=== PATIENT | female | born 1955 | race Caucasian/White ===

== ENCOUNTER → 2017-10-07 | Outpatient (CLI) | END | disposition home or self-care (01) ==

== ENCOUNTER 2017-11-03 06:22 | Inpatient (IN) | END 2017-11-05 15:08 | disposition home health service (06) | DRG 470 ==

== ENCOUNTER → 2017-11-21 | Outpatient (CLI) | END | disposition home or self-care (01) ==

== ENCOUNTER → 2017-12-19 | Outpatient (CLI) | END | disposition home or self-care (01) ==

== ENCOUNTER → 2018-01-16 | Outpatient (CLI) | END | disposition home or self-care (01) ==

== ENCOUNTER → 2018-01-23 | Outpatient (CLI) | END | disposition home or self-care (01) ==

== ENCOUNTER 2018-02-02 08:02 | Observation (INO) | END 2018-02-04 15:15 | disposition home health service (06) ==

== ENCOUNTER → 2018-02-13 | Outpatient (CLI) | END | disposition home or self-care (01) ==

== ENCOUNTER → 2018-02-17 | Outpatient (CLI) | END | disposition home or self-care (01) ==

== ENCOUNTER → 2018-02-20 | Outpatient (CLI) | END | disposition home or self-care (01) ==

== ENCOUNTER 2018-02-24 11:01 | Inpatient (IN) | END 2018-03-08 14:25 | disposition home health service (06) | DRG 464 ==

== ENCOUNTER → 2018-04-24 | Outpatient (CLI) | END | disposition home or self-care (01) ==

== ENCOUNTER → 2018-06-30 | Outpatient (CLI) | END | disposition home or self-care (01) ==

== ENCOUNTER → 2018-07-31 | Outpatient (CLI) | payer MEDICARE, OTHER ==
[~2018-07-31] MED LIST: ASPI325T32 PO; CALC0.255 PO; CALC0.5C10 PO; CITRACAL PO; DULO20CA43 PO; FIORICET PO; GABA-526 PO; GABA300C16 PO; HYDR2TAB3 PO; LEVE-5 PO; LEVO175T2 PO; LEVO750T25 PO; LYR75 PO; MAGN400T28 PO; METH500T8 PO; MORP15TA92 PO; OXYC-209 PO; ROPI1TAB41 PO; TEMA30CA6 PO; Vancomycin Iv Per Pharmacy XX
--- NOTE | 2018-07-31 12:45 | PN ---
Date/Time of Note Date/Time of Note DATE: 07/31/18 TIME: 12:41 Assessment/Plan VTE Prophylaxis Pharmacological prophylaxis: NA/contraindicated Pharm contraindication: low risk/ambulating Assessment/Plan Assessment/Plan 63-year-old female with right hip arthritis that has progressed to a point where it is interfering with her routine activities. Treatment options were discussed including medications injections and surgical treatment. The patient would like to proceed with right total hip replacement. Risks and benefits were discussed. Implant materials and surgical techniques were discussed. The patient will be scheduled for right total hip replacement in the near future Subjective 24 Hr Interval Summary Free Text/Dictation Monica is here for follow-up of right hip pain. The patient has a history of rheumatoid arthritis and has bilateral knee replacements. She has had hip pain in the past due to progressive arthritis of her hips. At this time, the right hip pain has progressed over the past few months to a point where it is interfering with routine activities. She is unable to rest and pain disturbed sleep at night. She is having difficulty sitting in one position and finding a comfortable spot. Pain is located in the right groin and radiates to the thigh. It is associated with limited range of motion of the right hip. She is using a walker for support. There is no history of fever or chills. She is here to discuss definitive treatment Exam/Review of Systems Vital Signs Vitals Vital signs are stable Exam Examination shows a pleasant female. She is awake alert and oriented. The patient is obviously uncomfortable and fidgety. The right hip has limited range of motion. Internal rotation is painful and 0 degrees. There is no obvious leg length inequality. There is no neurovascular deficit. Both knees have healed incisions of knee replacement. The left hip as terminally restricted range of motion as well. X-rays of the hips were done recently and show advanced osteoarthritis of the right hip with loss of joint space and osteophyte formation. LEENA NICHOLS Jul 31, 2018 12:45
== END | disposition home or self-care (01) ==
LOC: HKI 09:57
PROVIDERS: ATTEND Orthopaedic Surgery
DX: M16.11 Unilateral primary osteoarthritis, right hip (principal)
CPT/HCPCS: G0463

== ENCOUNTER 2018-08-24 09:26 | Inpatient (IN) | payer MEDICARE, OTHER ==
--- NOTE | 2018-08-23 17:31 | PREOPHP ---
DATE OF ADMISSION: 08/24/[address] Nichols: Thank you for asking me to see this 63-year-old woman preoperatively. She is scheduled to have total hip replacement tomorrow on the right side. The patient has had progressive difficulty to the point that she can barely walk. She needs help with putting on socks and shoes and has a significant amou nt of pain in her hip area. Complicating this is the fact that she does have rheumatoid arthritis an d multiple other pain issues for which she takes multiple medications. There is no history of cardia c disease, hypertension, diabetes. CURRENT MEDICATIONS: Include: 1. Percocet 5/325. 2. Requip 1 mg at bedtime. 3. Restoril on occasion at 30 mg. 4. Calcitriol 0.25 daily. 5. Vitamin D supplement. 6. Synthroid 75 mcg daily. 7. Cymbalta 30 mg. 8. She does have a prescription for Mobic but is not taking it preop. 9. MS Contin is 30 mg b.i.d. 10. Keppra 500 b.i.d. ALLERGIES: INCLUDE SHORTNESS OF BREATH WITH THE FOLLOWING DRUGS: 1. PENICILLIN. 2. CEPHALOSPORINS. 3. BACTRIM 4. REGLAN. 5. COMPAZINE. 6. TIGAN. HABITS: No cigarettes. No alcohol. MEDICAL PROBLEMS: As noted, osteoarthritis, rheumatoid arthritis. The patient has received Orencia in the past, is currently off for surgery. She has post-ablative hypothyroidism for Graves disease w ith associated post-ablative hypoparathyroidism with a history of hypocalcemia and seizure disorder f or which she takes Keppra. No seizures within the past long time. A remote history of bilateral romulo ast cancer in 1998. SURGERIES: Include section. She has had surgical procedures on her neck and lumbar spine. She has had an appendix; as noted, total thyroidectomy for Graves'. She has had a laparoscopy for s ome sort of abnormality of her duodenum which was benign but required some sort of stomach surgery. FAMILY HISTORY: The patient is . She has 1 son who works as a subcontractor. REVIEW OF SYSTEMS: CONSTITUTIONAL: There has been no weight loss, no headaches or dizziness. HEENT: She does wear glasses. There is no glaucoma. There is no hearing trouble. CARDIOPULMONARY: No shortness of breath or cough. No history of hypertension or cardiac disease or hyperlipidemia. GASTROINTESTINAL: Currently okay. MUSCULOSKELETAL: Asymptomatic joints other than the right hip. The patient has had multiple surgeri es. She has had infections post left knee replacement and also after lumbar surgery. PHYSICAL EXAMINATION: GENERAL: Reveals a pleasant, thin lady, alert and oriented. No acute distress. The patient is re quiring a walker for ambulation. She is uncomfortable even sitting in a chair. VITAL SIGNS: Blood pressure is 130/60. She has a regular pulse of 88. She is afebrile. She is 5 f eet and 1/2 inch tall, weighs 132 pounds. HEENT: Unremarkable. NECK: Supple. Posterior scar is noted. CHEST: Sounds clear to percussion and auscultation. HEART: Tones regular. No murmurs. ABDOMEN: Soft without palpable mass, organ or tenderness. EXTREMITIES: No clubbing, cyanosis or edema. She has rheumatoid changes of mild to moderate degree of the hands. She has fairly good range of motion of the left hip and knee. The right leg is basica lly very painful to move, and the hip was not ranged. BACK: There is a scar on her back as well. IMPRESSION: 1. Preoperative status, repair of right hip. 2. Rheumatoid arthritis. 3. History of postoperative infections. 4. Chronic pain syndrome. 5. Post-ablative hypothyroidism, on replacement. 6. Post-ablative hypoparathyroidism, also on replacement. DISCUSSION: The patient has been instructed to take her usual evening meds in the evening prior to s urgery. She can double up on her calcium supplement that evening. Postoperatively, we will continue all of her usual medications. Her electrocardiogram is normal. She has had a recent chest x-ray de scribed as normal. There is no evidence for any sort of cardiac disease. I think at this point the patient is cleared to have surgery from my standpoint. Obviously, because of the history of postoper ative infections, further careful watching of the patient will be required postoperatively. We will be glad to follow her along with you postoperatively. Dictated By: GABY JOHNSON MD SR/NTS Conf#: [id number] DID#: [id number] CC: LEENA NICHOLS MD;*EndCC*
[2018-08-24] VITALS (22 sets, daily range): BP systolic 93–110; BP diastolic 41–58; PULSE 87–96; RESP 11–20; Ht 152.4 cm; Wt 60.6 kg
[~2018-08-24] VITALS: Ht 152.4 cm; Wt 60.6 kg
[~2018-08-24 09:26] MED LIST changes: -ASPI325T32 PO; +BACITRACIN 50000 UNITS INJ IRR ONE; -CALC0.5C10 PO; -GABA-526 PO; -HYDR2TAB3 PO; -LYR75 PO; -ROPI1TAB41 PO; -TEMA30CA6 PO
[2018-08-24] MEDS ORDERED: LEVE-5 PO (10:09)
[2018-08-24] MEDS ORDERED: LEVO175T2 PO (10:09)
[2018-08-24] MEDS ORDERED: CALC0.5C10 PO (10:10)
[2018-08-24] MEDS ORDERED: GABA-526 PO (10:10)
[2018-08-24] MEDS ORDERED: MORP15TA92 PO (10:11)
[2018-08-24] MEDS ORDERED: ROPI1TAB41 PO (10:11)
[2018-08-24] MEDS ORDERED: DULO20CA43 PO (10:12)
[2018-08-24] MEDS ORDERED: TEMA30CA6 PO (10:12)
[2018-08-24] MEDS ORDERED: LYR75 PO (10:13)
[2018-08-24] MEDS ORDERED: MAGN400T28 PO (10:13)
--- NOTE | 2018-08-24 11:29 | NUR ---
DDAVP ORDERED PER MD, HOLDING ARE RN AWARE/ MEAGHAN.
[2018-08-24] MEDS ORDERED: DESMOPRESSIN 20 MCG in SOD CHLORIDE 0.9% 50 ML IVPB ONE (11:30)
[2018-08-24] MEDS ORDERED: POLYMYXIN B 500000 UNIT INJ ONE (13:07)
--- NOTE | 2018-08-24 13:07 | PREAC ---
Date/Time of Note Date/Time of Note DATE: 08/24/18 TIME: 13:03 Anesthesia Eval and Record Evaluation Time Pre-Procedure Interview DATE: 08/24/18 TIME: 13:03 Age 63 Sex female NPO: 8 hrs Preoperative diagnosis right hip joint disease Planned procedure right total hip replacement Past Medical History Past Medical History: Includes Endo: Hypothyroid Musculoskeletal: Rheumatoid arthritis GI: Other (hx of GI cancer ) Heme: Coagulation disorder Psych: Depression, Anxiety Surgery & Anesthesia Issues Other issues (awake under anesthesia during one operation (stomach) ) Meds Anticoagulation: No Beta Rosy within 24 hr: No Reason Beta Roys not given: Pt. not on B-Rosy Reported Medications Pregabalin* (Lyrica*) 75 Mg Capsule, 75 MG PO DAILY, CAP 08/24/18 Magnesium Oxide* (Magnesium Oxide*) 400 Mg Tablet, 400 MG PO DAILY, TAB 08/24/18 Duloxetine Hcl* (Cymbalta*) 20 Mg Capsule.dr, 40 MG PO DAILY, CAP 08/24/18 Temazepam* (Restoril*) 30 Mg Capsule, 30 MG PO HS PRN for INSOMNIA, CAP 08/24/18 Morphine Sulfate* (Ms Contin*) 15 Mg Tablet.sa, 30 MG PO Q8 PRN for PAIN, TAB.SA 08/24/18 Ropinirole Hcl* (Requip*) 1 Mg Tablet, 1 MG PO HS, TAB 08/24/18 Gabapentin* (Gabapentin*) 600 Mg Tablet, 600 MG PO TID, #90 TAB 08/24/18 Calcitriol* (Calcitriol*) 0.5 Mcg Capsule, 0.5 MCG PO DAILY, CAP 08/24/18 Levetiracetam* (Keppra*) 500 Mg Tablet, 500 MG PO BID, TAB 08/24/18 Levothyroxine Sodium* (Synthroid*) 175 Mcg Tablet, 175 MCG PO BEFORE BREAKFAST, #30 TAB 08/24/18 Discontinued Reported Medications Duloxetine Hcl* (Cymbalta*) 20 Mg Capsule.dr, 40 MG PO QAM, CAP 02/02/18 Oxycodone HCl/Acetaminophen (Percocet 10-325 mg Tablet) 1 Each Tablet, 1 EACH PO Q4H, TAB 02/02/18 Magnesium Oxide* (Magnesium Oxide*) 400 Mg Tablet, 400 MG PO BID, TAB 02/02/18 Morphine Sulfate* (Ms Contin*) 15 Mg Tablet.sa, 15 MG PO TID, TAB 11/03/17 Acetamin/Butalbital/Caffeine* (Fioricet*) [id number] Tab, 1 TAB PO Q6 PRN for PAIN LEVEL 1-5, TAB 11/02/17 Calcitriol* (Rocaltrol*) 0.25 Mcg Capsule, 0.25 MCG PO DAILY, CAP 11/02/17 Levetiracetam* (Keppra*) 500 Mg Tablet, 500 MG PO BID, TAB 11/02/17 Levothyroxine Sodium* (Synthroid*) 175 Mcg Tablet, 175 MCG PO BEFORE BREAKFAST, #30 TAB 11/02/17 Discontinued Scripts Methocarbamol* (Methocarbamol*) 500 Mg Tablet, 500 MG PO TID, #30 TAB Prov:ALTON WONG 03/07/18 [Vancomycin Iv Per Pharmacy] 1 EA EACH No Conflict Check, 0 EA XX .PER PROTOCOL for 35 Days, #70 IV.ACC Prov:ALTON WONG 03/07/18 Levofloxacin* (Levaquin*) 750 Mg Tablet, 750 MG PO DAILY@06, #38 TAB Prov:ALTON WONG 03/07/18 Gabapentin* (Gabapentin*) 300 Mg Capsule, 900 MG PO TID, #90 CAP Prov:ALTON WONG 03/07/18 Calcium Citrate* (Citracal*) 950 Mg Tab, 630 MG PO AC MEALS for 30 Days, #90 TAB To prevent hypocalcemia Prov:JONATHAN WALTON MD 11/05/17 Current Medications Lactated Ringer's 1,000 ml @ 125 mls/hr Q8H IV* ; Start 08/24/18 at 13:30; Stop 08/24/18 at 21:29 Tranexamic Acid 1000 mg/Sodium Chloride 110 ml @ 200 mls/hr PRE-OP ONCE IVPB ; Start 08/24/18 at 13:30; Stop 08/24/18 at 14:02 Tranexamic Acid 1000 mg/Sodium Chloride 110 ml @ 220 mls/hr AT CLOSING ONCE IVPB ; Start 08/24/18 at 13:30; Stop 08/24/18 at 13:59 Dexamethasone (Decadron) 4 mg PRE-OP ONCE IV Last administered on 08/24/18at 10:44; Admin Dose 4 MG; Start 08/24/18 at 13:30; Stop 08/24/18 at 13:31 Ropivacaine/ Clonidine/ Epinephrine/ Ketorolac Tromethamine/ Sodium Chloride INTRA-OP INJ ; Start 08/24/18 at 15:00; Stop 08/24/18 at 19:00 Clindamycin HCl/ Dextrose 50 ml @ 50 mls/hr PRE-OP ONCE IVPB ; Start 08/24/18 at 13:30; Stop 08/24/18 at 14:29 Acetaminophen 100 ml @ 400 mls/hr PRE-OP ONCE IVPB Last administered on 08/24/18at 10:45; Admin Dose 400 MLS/HR; Start 08/24/18 at 13:30; Stop 08/24/18 at 13:44 Meds reviewed: Yes Allergies Coded Allergies: Penicillins (Verified Allergy, Unknown, 08/24/18) Sulfa (Sulfonamide Antibiotics) (Verified Allergy, Unknown, 08/24/18) cefaclor (Verified Allergy, Unknown, 08/24/18) cephalexin (Verified Allergy, Unknown, 08/24/18) metoclopramide (Verified Allergy, Unknown, 08/24/18) prochlorperazine (Verified Allergy, Unknown, 08/24/18) trimethobenzamide (Verified Allergy, Unknown, 08/24/18) Allergies Reviewed: Yes Labs/Studies Labs Reviewed: Reviewed by anesthesiologist test: N/A Pre-procedure Exam Last vitals Vital Signs Date Temp Pulse Resp B/P (MAP) Pulse Ox O2 O2 Flow FiO2 Time Delivery Rate 08/24/18 98.5 87 18 98/54 (69) 95 Room Air 10:47 Airway: Adequate mouth opening, Adequate thyromental dist Mallampati: Mallampati II Teeth: Normal Lung: Normal Heart: Normal ASA Physical Status ASA physical status: 3 Emergency: None Pre-operative Attestations Prior to commencing anesthesia and surgery, the patient was re-evaluated, there was verification of: *The patient's identity *The results of appropriate recent lab work and preoperative vital signs *The above evaluation not changing prior to induction *Anesthetic plan, risk benefits, alternative and complications discussed with patient/family; questions answered; patient/family understands, accepts and wishes to proceed. SANTIAGO LANDA DO Aug 24, 2018 13:07
[2018-08-24] MEDS ORDERED: FENTAnyl 50 MCG/ML VIAL ONE (13:13)
[2018-08-24] MEDS ORDERED: ETOMIDATE 20 MG INJ ONE (13:13)
[2018-08-24] MEDS ORDERED: CLINDAMYCIN 600 MG/D5W (PMX) 50 ML IVPB ONE ×2 (13:13→13:30)
[2018-08-24] MEDS ORDERED: LIDOCAINE 2% (SDV) 5 ML INJ ONE (13:13)
[2018-08-24] MEDS ORDERED: MIDAZOLAM 1 MG/ML 2 ML INJ ONE ×2 (13:13→14:29)
[2018-08-24] MEDS ORDERED: DEXAMETHASONE 4 MG/ML 1 ML INJ IV ONE (13:30)
[2018-08-24] MEDS ORDERED: ONDANSETRON 4 MG INJ IV PRN (13:30)
[2018-08-24] MEDS ORDERED: HYDROmorphONE 1 MG/5 ML IV SYRINGE IV PRN (13:30)
[2018-08-24] MEDS ORDERED: LACTATED RINGER'S 1,000 ML IV* SCH (13:30)
[2018-08-24] MEDS ORDERED: ACETAMINOPHEN 1000MG/100ML IV 100 ML IVPB ONE (13:30)
[2018-08-24] MEDS ORDERED: DEXAMETHASONE 4 MG/ML 5 ML INJ ONE (14:39)
[2018-08-24] MEDS ORDERED: ONDANSETRON 4 MG INJ ONE (14:39)
--- NOTE | 2018-08-24 14:47 | HPN ---
Date/Time of Note Date/Time of Note DATE: 08/24/18 TIME: 14:46 Interval H&P Admission Note Pt. seen H&P reviewed: No system changes LEENA NICHOLS Aug 24, 2018 14:47
[2018-08-24] MEDS: TRANEXAMIC ACID 1,000 MG in SOD CHLORIDE 0.9% 100 ML IVPB ONE ×6 (15:20→15:45)
[2018-08-24] MEDS: LACTATED RINGER'S 1,000 ML IV SCH (16:05)
--- NOTE | 2018-08-24 16:05 | SIPON ---
Date/Time of Note Date/Time of Note DATE: 08/24/18 TIME: 16:04 Operative Report Preoperative Diagnosis right hip DJD Postoperative Diagnosis same Operation/Procedure Performed Right GERA Surgeon see signature line porcelain buildup assistant Johnny DUBOIS Anesthesia: spinal Estimated blood loss: 150 - 200 ml's Transfusion Required none Specimen bone Grafts/Implants size 1 actis stem, 48 cup, 32 ceramic head Complications none LEENA NICHOLS Aug 24, 2018 16:05
[2018-08-24] MEDS ORDERED: ROPIVACAINE 0.2% 20 ML VIAL ONE (16:07)
[2018-08-24] MEDS ORDERED: LIDOCAINE 1% (MDV) 20 ML INJ ONE (16:09)
--- NOTE | 2018-08-24 16:22 | NUR ---
PT NOTE , RECEIVED MD ORDER AT 16:09 FORT PT EVALUATION , HOWEVER PATIENT STILL IS IN OR , PLAN TO FOLLOW UP IN AM .
[2018-08-24] MEDS ORDERED: oxyCODONE 5 MG TAB PO PRN ×2 (16:30)
[2018-08-24] MEDS ORDERED: NACL 0.9% 3 ML SYG IV SCH (16:30)
[2018-08-24] MEDS ORDERED: MAGNESIUM HYDROXIDE 30ML CUP PO PRN (16:30)
[2018-08-24] MEDS ORDERED: NALOXONE (0.4 MG/ML) INJ IV PRN (16:30)
--- NOTE | 2018-08-24 16:44 | PAC ---
Date/Time of Note Date/Time of Note DATE: 08/24/18 TIME: 16:44 Post-Anesthesia Notes Post-Anesthesia Note Last documented vital signs Vital Signs Date Temp Pulse Resp B/P (MAP) Pulse Ox O2 O2 Flow FiO2 Time Delivery Rate 08/24/18 98 102 18 105/60 95 Room Air 1644 Activity: WNL Respiratory function: WNL Cardiovascular function: WNL Mental status: Baseline Pain reasonably controlled: Yes Hydration appropriate: Yes Nausea/Vomiting absent: Yes SANTIAGO LANDA DO Aug 24, 2018 16:44
[2018-08-24] MEDS: HYDROmorphONE 1 MG/5 ML IV SYRINGE IV PRN ×2 (17:00→17:15)
[2018-08-24] MEDS: KETOROLAC 15 MG INJ IV PRN ×2 (17:19→23:20)
--- NOTE | 2018-08-24 17:19 | CONS ---
Assessment/Plan Assessment/Plan Problems: (1) History of total right hip arthroplasty Onset Date: ~ 08/24/2018 Status: Acute Comment: Stable postop and without issue. Transfer form anesthesia care unit to orthopedic [facility] is appropriate (2) Rheumatoid arthritis Status: Chronic Comment: Noted and stable at this time Qualifiers: Rheumatoid arthritis location: unspecified site Rheumatoid factor presence: with rheumatoid factor Qualified Codes: M05.9 - Rheumatoid arthritis with rheumatoid factor, unspecified (3) Postprocedural hypoparathyroidism Status: Chronic Comment: Maintain calcitriol and calcium supplementations and follow serum calcium. (4) Postprocedural hypothyroidism Status: Chronic Comment: Maintain levothyroxine replacement therapy (5) Chronic pain syndrome Status: Chronic Comment: Noted. Continue with gabapentin and pain medications. Transition back to acting narcotics shortly after we get her through the acute phase. (6) Seizure disorder Status: Chronic Comment: Maintain Keppra (7) Anemia Status: Chronic Comment: Recheck labs in the morning Qualifiers: Anemia type: unspecified type Qualified Codes: D64.9 - Anemia, unspecified (8) Gastroesophageal reflux disease Status: Chronic Comment: Maintain proton pump inhibitor therapy Qualifiers: Esophagitis presence: without esophagitis Qualified Codes: K21.9 - Gastro- esophageal reflux disease without esophagitis Consultation Date/Type/Reason Admit Date/Time Aug 24, 2018 at 09:26 Initial Consult Date August 24, 2018 Type of Consult Internal medicine Reason for Consultation Postoperative assistance after right total hip arthroplasty Requesting Provider: LEENA NICHOLS Date/Time of Note DATE: 08/24/18 TIME: 17:16 24 HR Interval Summary Free Text/Dictation Ene 63-year-old female with a somewhat extensive medical history admitted electively for hip arthroplasty. She is seen postop in the postanesthesia care unit Constitutional: no complaints Detailed Summary ENT: no complaints Respiratory: no complaints Cardiovascular: no complaints Gastrointestinal: no complaints Musculoskeletal: other (Pain at hip) Exam/Review of Systems Exam Vitals Vital Signs Date Temp Pulse Resp B/P (MAP) Pulse Ox O2 O2 Flow FiO2 Time Delivery Rate 08/24/18 98.5 87 18 98/54 (69) 95 Room Air 10:47 Intake and Output 08/23/18 08/23/18 08/24/18 1515:00 23:00 07:00 IntakeIntake Total 0 ml BalanceBalance 0 ml Constitutional: alert, oriented Eyes: nl conjunctiva, EOMI, nl lids, nl sclera, PERRL Respiratory: clear to auscultation, normal air movement Cardiovascular: regular rate and rhythm, nl pulses Gastrointestinal: soft, nl liver, spleen, non-tender Extremities: normal pulses Medications Medication Current Medications Lactated Ringer's 1,000 ml @ 125 mls/hr Q8H IV* ; Start 08/24/18 at 13:30; Stop 08/24/18 at 21:29 Ropivacaine/ Clonidine/ Epinephrine/ Ketorolac Tromethamine/ Sodium Chloride INTRA-OP INJ ; Start 08/24/18 at 15:00; Stop 08/24/18 at 19:00 Hydromorphone HCl (Dilaudid) 0.2 mg PACU PRN IV MILD PAIN 1-3; Start 08/24/18 at 13:30; Stop 08/24/18 at 18:00 Hydromorphone HCl (Dilaudid) 0.4 mg PACU PRN IV MOD PAIN 4-6 Last administered on 08/24/18at 17:00; Admin Dose 0.4 MG; Start 08/24/18 at 13:30; Stop 08/24/18 at 18:00 Ondansetron HCl (Zofran Inj) 4 mg PACU ORDER PRN IV NAUSEA/VOMITING; Start 08/24/18 at 13:30; Stop 08/24/18 at 18:00 Lactated Ringer's 1,000 ml @ 80 mls/hr [id number] IV ; Start 08/24/18 at 16:05 Oxycodone HCl (Roxicodone) 10 mg Q4H PRN PO .PAIN; Start 08/24/18 at 16:30 Oxycodone HCl (Roxicodone) 5 mg Q4H PRN PO .PAIN; Start 08/24/18 at 16:30 Ondansetron HCl (Zofran Inj) 4 mg Q4H PRN IV NAUSEA/VOMITING; Start 08/25/18 at 16:30 Clindamycin HCl/ Dextrose 50 ml @ 50 mls/hr Q8H IVPB ; Start 08/24/18 at 18:00; Stop 08/25/18 at 10:59 Celecoxib (Celebrex) 100 mg BID PO ; Start 08/25/18 at 09:00 Gabapentin (Neurontin) 300 mg QHS PO ; Start 08/24/18 at 21:00 Pantoprazole (Protonix Tab) 40 mg DAILY@06 PO ; Start 08/25/18 at 06:00 Docusate Sodium (Colace) 200 mg BID PO ; Start 08/25/18 at 09:00; Stop 08/27/18 at 21:01 Magnesium Hydroxide (Milk Of Mag) 30 ml HS PRN PO .CONSTIPATION; Start 08/24/18 at 16:30 Ketorolac Tromethamine (Toradol) 15 mg Q6H PRN IV .PAIN; Start 08/24/18 at 16:30 Naloxone HCl (Narcan) 0.2 mg Q2M PRN IV .RESP RATE; Start 08/24/18 at 16:30 IV Flush (NS 3 ml) 3 ml per protocol IV ; Start 08/24/18 at 16:30 Aspirin (Ecotrin) 325 mg BID PO ; Start 08/25/18 at 09:00 JONATHAN WALTON MD Aug 24, 2018 17:19
[2018-08-24] MEDS: CALCITRIOL 0.25 MCG CAP PO SCH (17:30)
--- NOTE | 2018-08-24 17:30 | NUR ---
PACU NOTE: PT RECEIVED S/P RIGHT THR. PT IS ALERT AND ORIENTED, MEDICATED FOR PAIN PER CURRENT ORDERS AND VERBALIZED RELIEVE. VITAL SIGNS ARE STABLE. PT WILL BE TRANSFERRED TO MED/SURG UNIT FOR CONTINUATION OF CARE
[2018-08-24] MEDS: CLINDAMYCIN 900 MG/D5W (PMX) 50 ML IVPB SCH (17:49)
--- NOTE | 2018-08-24 17:50 | OPR ---
Date/Time of Note Date/Time of Note DATE: 08/24/18 TIME: 17:47 Operative Report Procedure Date: Aug 24, 2018 Preoperative Diagnosis Right hip osteoarthritis Postoperative Diagnosis Same Operation/Procedure Performed Right total hip replacement Surgeon see signature line Gluing Machine Adjuster KARI Diez Anesthesia Type: spinal Estimated Blood Loss: 250 - 300 ml's Transfusion none Specimen Bone Grafts/Implants Dexter hip, size 1 Actis stem, 48 mm cup, 32 mm head Tubes/Drains None Complications none Pt Condition Post Procedure: stable Disposition: PACU Indications Patient is a 63-year-old female with advanced arthritis of her right hip Procedure Description The patient was placed supine on the operating room table. The right hip was prepped and draped in usual manner. An anterior incision was made. The plane between the sartorius and tensor fascia ryan was developed in a blunt fashion. Branches of the circumflex vessels were identified and cauterized with aqua mantis. The hip capsule was opened. A large effusion and arthritis was encountered. The neck cut was made 1 cm proximal to the lesser trochanter. The acetabular preparation was done with [place] reamers up to a size 47. A 48 trial cup was well fitting. The 48 cup was placed in 20 degrees of anteversion and 40 degrees of abduction. One screw was used to enhance fixation. Liner was placed to accommodate a 32 mm femoral head. The femur was then prepared for a size 1 component. The lower extremity was placed in extension and external rotation. The size 1 trial stem with a standard offset neck resulted in a stable hip with equal leg length. X-rays confirm proper alignment of the implants. Once satisfactory alignment was confirmed, the trials were removed and final components placed including a size 1 stem, 32 mm ceramic head. The hip was injected with pain cocktail. Stasis was confirmed and the wound closed in layers using #1 strata fix for deep fascia, 2-0 Vicryl for subcutaneous tissue and 3-0 Monocryl for the skin. Patient was transferred to the recovery room in stable condition LEENA NICHOLS Aug 24, 2018 17:50
--- NOTE | 2018-08-24 18:15 | NUR ---
RECEIVED PATIENT REPORT FROM KAEL SAHNI IN PACU. RECEIVED THE PATIENT TO UNIT AT 18 10 S/P RIGHT TOTAL HIP REPLACEMENT UNDER DR. MARIALUISA STERN. PATIENT VITALS STABLE. ON ADVANCE TO REGULAR DIET STATUS, PATIENT GIVEN CLEAR FLUIDS . TOLERATING WELL. PATIENT IV SITE INTACT AND PATENT. RIGHT HIP SIDE WITH SILVER SULPHA DIAZINE DRESSING. NO BLEEDING OR DRAINAGE NOTED. PATIENT HAS LICONA DRAINING WELL WITH CLEAR URINE. SCD'S ON. ICE PACK APPLIED TO THE SURGICAL SITE. INTRODUCED TO THE UNIT STAFF AND ROOM, INTRODUCED CALL LIGHT SYSTEM. ALL SAFETY PRECAUTIONS EXPLAINED AND MAINTAINED SUCH BED IN THE LOWEST POSITION, ALARMS ON, BRAKES ON, CALL LIGHT SYSTEM WITHIN REACH. WILL CONTINUE TO MONITOR. ENCOURAGED TO USE THE CALL LIGHT.
[2018-08-24] MEDS: LEVETIRACETAM 500 MG TAB PO SCH (20:39)
[2018-08-24] MEDS: GABAPENTIN 300 MG CAP PO SCH ×2 (20:39)
[2018-08-24] MEDS: ROPINIROLE 1 MG TAB PO SCH (20:40)
[2018-08-24] MEDS: CALCIUM CARBONATE 1.25 GM TAB PO SCH (20:40)
[2018-08-24] MEDS: HYDROmorphONE 1 MG/ML SYG IV PRN (21:24)
[2018-08-25 00:15] VITALS: BP 105/57; PULSE 94; RESP 18
[2018-08-25] MEDS: HYDROmorphONE 1 MG/ML SYG IV PRN ×6 (00:35→16:31)
[2018-08-25] MEDS: CLINDAMYCIN 900 MG/D5W (PMX) 50 ML IVPB SCH ×2 (01:56→10:50)
--- NOTE | 2018-08-25 04:19 | NUR ---
END OF SHIFT NOTE: PATIENT IS A AND O X 4; NOT IN DISTRESS. VS IS WNL; ALL MEDICATIONS HAVE BEEN GIVEN ORDERED AND PRN; ALL NEEDS ATTENDED; CALL LIGHT WITHIN REACH ; PT'S SPOUSE AT THE BED SIDE; WILL ENDORSE TO THE DAY SHIFT RN
[2018-08-25 04:25] VITALS: BP 109/58; PULSE 81; RESP 18
[2018-08-25] MEDS: KETOROLAC 15 MG INJ IV PRN ×4 (05:02→22:30)
[2018-08-25] MEDS: LACTATED RINGER'S 1,000 ML IV SCH (05:07)
[2018-08-25] MEDS ORDERED: ONDANSETRON 4 MG INJ IV PRN ×2 (05:45→16:30)
[2018-08-25] MEDS: PANTOPRAZOLE (EC) 40 MG TAB PO SCH (06:22)
[2018-08-25] MEDS: LEVOTHYROXINE 175 MCG TAB PO SCH (06:22)
--- NOTE | 2018-08-25 06:49 | NUR ---
PT. REQUESTED NOT TO DISCONTINUE LICONA CATH. UNTIL SHE WILL WORK WITH A PT. DR. NICHOLS WAS PAGED. AND WILL ENDORSE TO THE DAY SHIFT RN.
--- NOTE | 2018-08-25 07:45 | NUR ---
OT EVAL: Therapy day number 1 Evaluation Start Time 07:45 Evaluation End Time 08:40 Evaluation Total Time 55 min Pain Intensity 6 (0-10) Patient Stated Goal for Pain Relief 10 (0-10) Pain Scale NUMERIC Pain Level Comment right hip Feeding Mechanics Independent Bed Mobility Supine to Sit Moderate Assist Transfer Sit to Stand Ability Minimum Assist Bed Mobility Sit to Supine Minimum Assist Toileting Ability Minimum Assist Assistive Devices Front Wheel Walker Hygiene Ability Independent Toileting Ability Maximum Assist Toilet Transfer Ability Minimum Assist Post Treatment Pain Intensity 6 (0-10) OT Technical Record Comment OT EVAL: Pt is a 63 y.o. female s/p right hip replacement. Pt has PHMX of osteoarthritis, rheumatoid arthritis, post-ablative hypothyroidism for Graves disease with associated post-ablative hypoparathyroidism with a history of hypocalcemia and seizure disorder and history of bilateral breast cancer in 1998. PLOF: Pt lives with her in a single story apartment and was independent with ADL's and using a SPC for ambulation up until 2 week ago. For the past two weeks pt required assistance with LB dressing, transfers, and showering due to pain. Pt has also begun using a FWW for ambulation. Pt owns SPC, FWW and 3/1 commode. CLOF: RN cleared pt for skilled OT tx. Pt received supine in bed and agreeable to tx. OTR educated pt on purpose of OT and instructed pt on anterior hip precautions as well as AE for LB dressing. Pt required Mod A to perform supine->sit at EOB due to inability to move right leg independently. Seated at EOB pt demonstrated good sitting balance. Pt performed 3/1 commode transfer using FWW with vc for safety and proper positioning. Pt required total A for toilet hygiene due to extreme pain. Pt returned to bed with all needs met. RN notified. Pt demonstrates good understanding of precautions and use of FWW. Pt will benefit from skilled OT tx to increase safety awareness, balance, endurance and independence with self care. Recommend d/c home once medically cleared by .
[2018-08-25 08:08] VITALS: BP 126/61; PULSE 68; RESP 18
[2018-08-25] MEDS: DOCUSATE SODIUM 100 MG CAP PO SCH ×2 (09:00→21:00)
--- NOTE | 2018-08-25 09:05 | PN ---
Date/Time of Note Date/Time of Note DATE: 08/25/18 TIME: 09:04 Assessment/Plan Lines/Catheters IV Catheter Type (from Nrsg): Peripheral IV Telles in Place (from Nrsg): Yes Assessment/Plan Assessment/Plan Slow progress after hip replacement. Pain medication will be increased, pain consult is written. The patient may need 1-2 days before she is ready for discharge Subjective 24 Hr Interval Summary Complaint of significant pain, postop day 1 after hip replacement Exam/Review of Systems Vital Signs Vitals Vital Signs Date Temp Pulse Resp B/P (MAP) Pulse Ox O2 O2 Flow FiO2 Time Delivery Rate 08/25/18 98.0 68 18 126/61 90 Room Air 08:08 (82) 08/25/18 2.0 04:25 Intake and Output 08/24/18 08/24/18 08/25/18 1515:00 23:00 07:00 IntakeIntake Total 1820 ml 1050 ml OutputOutput Total 500 ml 2750 ml BalanceBalance 1320 ml -1700 ml Exam Free Text/Dictation Hip dressing is intact. Range of motion is limited. No neurovascular deficit is noted Results Result Diagram: 08/25/187 08/25/18 0427 LEENA NICHOLS Aug 25, 2018 09:05
[2018-08-25] MEDS: CELECOXIB 100 MG CAP PO SCH ×2 (09:10→20:18)
[2018-08-25] MEDS: GABAPENTIN 300 MG CAP PO SCH ×4 (09:10→20:17)
[2018-08-25] MEDS: DULOXETINE 20 MG CAP DR PO SCH (09:10)
[2018-08-25] MEDS: ASPIRIN (EC) 325 MG TAB PO SCH ×2 (09:11→20:18)
[2018-08-25] MEDS: MAGNESIUM OXIDE 400 MG TAB PO SCH (09:11)
[2018-08-25] MEDS: CALCITRIOL 0.25 MCG CAP PO SCH (09:12)
[2018-08-25] MEDS: CALCIUM CARBONATE 1.25 GM TAB PO SCH ×3 (09:12→22:36)
[2018-08-25] MEDS: LEVETIRACETAM 500 MG TAB PO SCH ×2 (09:12→20:17)
[2018-08-25] MEDS ORDERED: HYDROmorphONE 1 MG/ML SYG IV PRN (09:30)
--- NOTE | 2018-08-25 10:49 | NUR ---
PT VALUATION , Therapy day number 1 Evaluation Start Time 10:00 Evaluation Total Time 0 min Subjective Current complaint of pain Pain Scale NUMERIC Pain Intensity 5 (0-10) Patient Stated Goal for Pain Relief 0 (0-10) Pain Level Comment RT HIP Pre Treatment Vital Signs Stable Yes - BP:126/61 68 Exercise Assessment Label Bilat Lower Extremity Exercise Type Active ROM Additional Exercise Comments PRT GERA PROTOCOL Supine to Sit Minimum Assist Transfer Sit to Stand Ability Minimum Assist Bed Mobility Sit to Supine Minimum Assist Sitting Tolerance 15 min Patient uses wheelchair Not Applicable Gait Assist Levels Minimum Assist Assistive Devices Front Wheel Walker Ambulation Distance 10 feet Additional Gait Comments SLOE CADENE , FATIGUES EASILY , NEEDS VC'S FOR EQUENCING . Weight Bearing Assessment Label Right Lower Extremity Weight Bearing Status Weight Bearing as [place] Additional Stairs Assist Comments TBA Static Sitting Balance Good Dynamic Sitting Balance Good Standing Static Balance Good Dynamic Standing Balance Fair plus Additional Balance Assessments Comments W/FWW Activity Tolerance Poor Equipment Present A pump Telles Catheter IV pump Post Treatment Pain Intensity 3 0-10 Quality Indicators Dizziness Variance Documentation P/S SEE PT NOTE . PT Technical Record Comment PT EVALUATION , RN CLEARED , PATIENT AGREEABLE , PATIENT VERY SLOW , FEARFUL AND APPREHENSIVE , REQUIRES MAX VC'S AND ENCOURAGEMENT FOR PARTICIPATION . PATIENT IS A 63 Y/O FEMALE , ALERT AND ORIENTED TO SELF, SITUATION , WITH PMH: RA, CHRONIC PAIN SYNDROME , S/P BANDAR TKA,S/BACK SURGERY , ON 08/24/18 UNDERWENT RT GERA /ANTERIOR APPROACH, PATIENT FOUND IN BED INSTRUCTED HER IN SAFETY, FALL PRECAUTION , PROPER BED MOBILITY , PERFORMED AND REVIEWS THERA EXE'S RLE PER GERA PROTOCOL, ISSUED HAND OUT , PATIENT DEMONSTRATED GOOD RETURN UNDERSTANDING .P/S SEE PT NOTE FOR PATIENT'S FUNCTIONAL STATUS , GAIT TR W/FWW PERFORMED 10' WITH MIN A AND CONSTANT VC'S FOR SAFETY, SEQUENCING AND PROPER BREATHING TECHNICS , PATIENT HAS SLOW HOLDEN GAIT PATTERN , FATIGUES EASILY,AND GAIT DISTANCE W/FWW LIMITED DUE TO ARLEN AND POOR FUNCTIONAL ENDURANCE , VS TABLE , TOLERATED TREATMENT FAIRLY ,PATIENT IS CLEARED TO GET OOB WITH NS BANQUET STEWARDESS NOTIFIED . A: PATIENT LIVES WITH IN A TWO STORY APARTMENT HAS BEEN FUNCTIONAL AND IND.AMBULATORY WITHOUT AD ,DC PLANNING PER MD RECOMMENDATION , PATIENT OWNS FWW , BED SIDE COMMODE , NO DME NEEDS . P: PT BID X6 , DAILY X1 ( THERA EXE'S PER GERA PROTOCOL ,TRANSFER TR, GAIT TR W/FWW WBA ON RLE , STAIR TR, PATIENT EDUCATION , FAMILY TRAINING ).
--- NOTE | 2018-08-25 13:08 | PN ---
Date/Time of Note Date/Time of Note DATE: 08/25/18 TIME: 13:05 Assessment/Plan VTE Prophylaxis Risk score (from Nsg)>0 risk: 15 SCD applied (from Nsg): Yes Pharmacological prophylaxis: other (asa) Lines/Catheters IV Catheter Type (from Nrsg): Peripheral IV Urinary Cath still in place: Yes Reason Cath still needed: urinary retention Assessment/Plan Result Diagram: 08/25/18 0427 08/25/18 0427 Results 24hrs Laboratory Tests Test 08/24/18 18:29 08/25/18 04:27 08/25/18 07:37 Herpes Simplex Virus I 34.70 H IgG Antibody Herpes Simplex Virus II IgG Ab <0.90 White Blood Count 8.5 # Red Blood Count 3.50 L Hemoglobin 7.9 L Hematocrit 26.3 L Mean Corpuscular Volume 75.1 L Mean Corpuscular Hemoglobin 22.6 L Mean Corpuscular 30.0 L Hemoglobin Concent Red Cell Distribution Width 15.7 H Platelet Count 228 Mean Platelet Volume 10.6 H Immature Granulocytes % 0.400 Neutrophils % 82.3 H Lymphocytes % 8.5 L Monocytes % 8.7 Eosinophils % 0.0 Basophils % 0.1 Nucleated Red Blood Cells % 0.0 Immature Granulocytes # 0.030 Neutrophils # 7.0 Lymphocytes # 0.7 L Monocytes # 0.7 Eosinophils # 0.0 Basophils # 0.0 Nucleated Red Blood Cells # 0.0 Sodium Level 130 L Potassium Level 4.2 Chloride Level 89 L Carbon Dioxide Level 32 H Anion Gap 9 Blood Urea Nitrogen 21 H Creatinine 0.42 L Est Glomerular Filtrat > 60 Rate mL/min Glucose Level 123 Calcium Level 7.6 L Ionized Calcium (Measured) 1.0 L Iron Level 40 Total Iron Binding Capacity 337 Percent Iron Saturation 12 L Lab Scanned Report REFERENCE LAB Subjective 24 Hr Interval Summary Free Text/Dictation post op rt thr. has been up three times with p.t. lots of pain issues, which were present preop, feels current regimen is ok post op hypoparathyroid, ca sl low is back on usual replacements anemia, present preop with microcytosis. states she has received iv iron in the past, not clear re cause. hgb is 7.9, low iron levels, to start iv iron alert, fluent vs ok clear lungs, no edema Musculoskeletal: bone/joint pain Exam/Review of Systems Exam Vitals Vital Signs Date Temp Pulse Resp B/P (MAP) Pulse Ox O2 O2 Flow FiO2 Time Delivery Rate 08/25/18 98.0 68 18 126/61 90 Room Air 08:08 (82) 08/25/18 2.0 04:25 Intake and Output 08/24/18 08/24/18 08/25/18 1515:00 23:00 07:00 IntakeIntake Total 1820 ml 1050 ml OutputOutput Total 500 ml 2750 ml BalanceBalance 1320 ml -1700 ml Results Results 24hrs Laboratory Tests Test 08/24/18 18:29 08/25/18 04:27 08/25/18 07:37 Herpes Simplex Virus I 34.70 H IgG Antibody Herpes Simplex Virus II IgG Ab <0.90 White Blood Count 8.5 # Red Blood Count 3.50 L Hemoglobin 7.9 L Hematocrit 26.3 L Mean Corpuscular Volume 75.1 L Mean Corpuscular Hemoglobin 22.6 L Mean Corpuscular 30.0 L Hemoglobin Concent Red Cell Distribution Width 15.7 H Platelet Count 228 Mean Platelet Volume 10.6 H Immature Granulocytes % 0.400 Neutrophils % 82.3 H Lymphocytes % 8.5 L Monocytes % 8.7 Eosinophils % 0.0 Basophils % 0.1 Nucleated Red Blood Cells % 0.0 Immature Granulocytes # 0.030 Neutrophils # 7.0 Lymphocytes # 0.7 L Monocytes # 0.7 Eosinophils # 0.0 Basophils # 0.0 Nucleated Red Blood Cells # 0.0 Sodium Level 130 L Potassium Level 4.2 Chloride Level 89 L Carbon Dioxide Level 32 H Anion Gap 9 Blood Urea Nitrogen 21 H Creatinine 0.42 L Est Glomerular Filtrat > 60 Rate mL/min Glucose Level 123 Calcium Level 7.6 L Ionized Calcium (Measured) 1.0 L Iron Level 40 Total Iron Binding Capacity 337 Percent Iron Saturation 12 L Lab Scanned Report REFERENCE LAB Medications Medication Current Medications Lactated Ringer's 1,000 ml @ 80 mls/hr [id number] IV Last administered on 08/25/18at 05:07; Admin Dose 80 MLS/HR; Start 08/24/18 at 16:05 Oxycodone HCl (Roxicodone) 10 mg Q4H PRN PO .PAIN Last administered on 08/11 10/27at 19:31; Admin Dose 10 MG; Start 08/24/18 at 16:30 Oxycodone HCl (Roxicodone) 5 mg Q4H PRN PO .PAIN Last administered on 08/24/18 17:53; Admin Dose 5 MG; Start 08/24/18 at 16:30 Celecoxib (Celebrex) 100 mg BID PO Last administered on 08/25/18 09:10; Admin Dose 100 MG; Start 08/25/18 at 09:00 Gabapentin (Neurontin) 300 mg QHS PO Last administered on 08/24/18 20:39; Admin Dose 300 MG; Start 08/24/18 at 21:00 Pantoprazole (Protonix Tab) 40 mg DAILY@06 PO Last administered on 08/25/18 0 6:22; Admin Dose 40 MG; Start 08/25/18 at 06:00 Docusate Sodium (Colace) 200 mg BID PO ; Start 08/25/18 at 09:00; Stop 08/27/18 at 21:01 Magnesium Hydroxide (Milk Of Mag) 30 ml HS PRN PO .CONSTIPATION; Start 08/24/18 at 16:30 Ketorolac Tromethamine (Toradol) 15 mg Q6H PRN IV .PAIN Last administered on 08/25/18 10:15; Admin Dose 15 MG; Start 08/24/18 at 16:30 Naloxone HCl (Narcan) 0.2 mg Q2M PRN IV .RESP RATE; Start 08/24/18 at 16:30 IV Flush (NS 3 ml) 3 ml per protocol IV ; Start 08/24/18 at 16:30 Aspirin (Ecotrin) 325 mg BID PO Last administered on 08/25/18 09:11; Admin Dose 325 MG; Start 08/25/18 at 09:00 Calcitriol (Rocaltrol) 0.5 mcg DAILY PO Last administered on 08/25/18 09:12; A dmin Dose 0.5 MCG; Start 08/24/18 at 17:30 Duloxetine HCl (Cymbalta) 40 mg DAILY PO Last administered on 08/25/18 09:10; Admin Dose 40 MG; Start 08/25/18 at 09:00 Gabapentin (Neurontin) 600 mg TID PO Last administered on 08/25/18 09:10; Admin Dose 600 MG; Start 08/24/18 at 21:00 Levetiracetam (Keppra) 500 mg BID PO Last administered on 08/25/18 09:12; Admin Dose 500 MG; Start 08/24/18 at 21:00 Levothyroxine Sodium (Synthroid) 175 mcg BEFORE BREAKFAST PO Last administered on 08/25/18 06:22; Admin Dose 175 MCG; Start 08/25/18 at 07:00 Magnesium Oxide (Mag-Ox 400) 400 mg DAILY PO Last administered on 08/25/18 09:11; Admin Dose 400 MG; Start 08/25/18 at 09:00 Ropinirole HCl (Requip) 1 mg HS PO Last administered on 08/24/18 20:40; Admin Dose 1 MG; Start 08/24/18 at 21:00 Zolpidem Tartrate (Ambien) 5 mg HS MAY REPEAT X 1 PRN PO INSOMNIA; Start 08/24/18 at 17:30 Calcium Carbonate (Oyster Shell Calcium) 1.25 gm TID PO Last administered on 08/25/18 09:12; Admin Dose 1.25 GM; Start 08/24/18 at 21:00 Ondansetron HCl (Zofran Inj) 4 mg Q4H PRN IV NAUSEA/VOMITING Last administered on 08/25/18 05:57; Admin Dose 4 MG; Start 08/25/18 at 05:45 Hydromorphone HCl (Dilaudid) 1 mg Q2H PRN IV SEVERE PAIN LEVEL 7-10 Last administered on 08/25/18 11:39; Admin Dose 1 MG; Start 08/25/18 at 09:30 GABY JOHNSON MD Aug 25, 2018 13:08
[2018-08-25] MEDS: SOD FERRIC GLUC COMPLX 125 MG in SOD CHLORIDE 0.9% 100 ML IVPB SCH (14:36)
[2018-08-25 15:28] VITALS: BP 130/63; PULSE 70; RESP 18
[2018-08-25] MEDS ORDERED: morphine (ER) 15 MG TAB PO SCH (16:00)
--- NOTE | 2018-08-25 16:32 | NUR ---
PT EVALUATION, Therapy day number 2 Subjective Current complaint of pain Pain Scale NUMERIC Pain Intensity 3 (0-10) Patient Stated Goal for Pain Relief 0 (0-10) Pain Level Comment RT HIP Exercise Assessment Label Bilat Lower Extremity Exercise Type Active ROM Additional Exercise Comments PER GERA PROTOCOL Exercise Start Time 15:50 Exercise End Time 16:02 Total Exercise Time 12 min (8-127) Supine to Sit Minimum Assist Transfer Sit to Stand Ability Minimum Assist Bed Mobility Sit to Supine Minimum Assist Sitting Tolerance 10 min Patient uses wheelchair Not Applicable Gait Training Start Time 16:02 Gait Assist Levels Minimum Assist Assistive Devices Front Wheel Walker Ambulation Distance 50 feet Additional Gait Comments SLOW HOLDEN Gait Training End Time 16:30 Total Gait Training Treatment Time 28 min (8-127) Weight Bearing Assessment Label Right Lower Extremity Weight Bearing Status Full Weight Bearing Static Sitting Balance Good Dynamic Sitting Balance Good Standing Static Balance Good Dynamic Standing Balance Fair plus Additional Balance Assessments Comments W/FWW Safety Judgement Good Activity Tolerance Fair Equipment Present A pump Telles Catheter Post Treatment Pain Intensity 3 0-10 Variance Documentation P/S SEE PT NOTE . Total Treament Time 40 min (8-127) Total Minutes 40 Total Units 3 PT Technical Record Comment PT NOTE , RN CLEARED , PATIENT AGREEABLE , PATIENT WAS PRE-MEDICATED FOR PAIN , PATIENT VERY SLOW , REQUIRES EXTRA TIME TO COMPLETE PT SESSION . PATIENT FOUND IN BED , PERFORMED ROM EXE' YAEL'S ANTERIOR APPROACH GERA PROTOCOL, P/S SEE PT NOTE FOR PATIENT'S FUNCTIONAL STATUS , GAIT TR W/FWW 50' WITH MIN A AND VC'S FOR SEQUENCING AND INCREASE STEP LENGTH , PATIENT FATIGUES EASILY AND REQUIRES SEVERAL STANDING REST PERIODS DURING PT SESSION , PATIENT RETURNED BACK TO BED WITH MIN A , VS STABLE , TOLERATED TREATMENT WELL , PATIENT IS CLEARED TO GET OB,AMBULATE WITH NSG STAFF . A: DC PLANNING PER MD RECOMMENDATION , PATIENT OWNS FWW , BED SIDE COMMODE . P: CONTINUE WITH POC / STAIR TR IN AM .
[2018-08-25 19:25] VITALS: BP 118/83; PULSE 84; RESP 18
[2018-08-25] MEDS: HYDROmorphONE 2 MG/ML SYG IV PRN (19:37)
--- NOTE | 2018-08-25 19:57 | NUR ---
EOSS: Pt noted to have allergy to celebrex, confirmed with pharmacy that it was ok to give this medication. No reaction noted. Consult with Cain occurred today; pain regimen changed. Pain management improved during shift. Pt ambulated w/ walker w/ PT. Telles removed, no issues, at 1600, pt due to void. No nausea. Diet tolerated well. Dressing c/d/i. Call light within reach, SCDs on. Side effects of medications reviewed.
[2018-08-25] MEDS: ROPINIROLE 1 MG TAB PO SCH (22:36)
[2018-08-26] MEDS: HYDROmorphONE 2 MG/ML SYG IV PRN ×2 (01:11→06:01)
[2018-08-26] MEDS: ZOLPIDEM 5 MG TAB PO PRN ×3 (01:37→22:34)
[2018-08-26 02:15] VITALS: BP 112/59; PULSE 81; RESP 18
--- NOTE | 2018-08-26 04:26 | NUR ---
END OF SHIFT REPORT: PATIENT IS A AND O X 4; NOT IN DISTRESS. VS IS WNL; ALL MEDICATIONS HAVE BEEN GIVEN ORDERED AND PRN; ALL NEEDS ATTENDED; CALL LIGHT WITHIN REACH ;FAMILY MEMBERS AT THE BED SIDE; WILL ENDORSE TO THE DAY SHIFT RN
[2018-08-26] MEDS: KETOROLAC 15 MG INJ IV PRN ×2 (04:41→11:26)
[2018-08-26] MEDS: PANTOPRAZOLE (EC) 40 MG TAB PO SCH (05:31)
[2018-08-26] MEDS: LEVOTHYROXINE 175 MCG TAB PO SCH (06:07)
--- NOTE | 2018-08-26 07:36 | PN ---
Date/Time of Note Date/Time of Note DATE: 08/26/18 TIME: 07:31 Assessment/Plan Lines/Catheters IV Catheter Type (from Nrsg): Saline Lock Telles in Place (from Nrsg): Yes Assessment/Plan Chief Complaint/Hosp Course 63-year-old female postop day 2 status post right total hip. Patient doing very well. Patient states pain is well controlled today. Did relatively well with therapy yesterday. Patient is looking forward to going home today if pain remains controlled and as well therapy. Continue pain management Continue physical therapy Weightbearing as tolerated DVT prophylaxis DC planning home with home health. Subjective 24 Hr Interval Summary Patient doing well No acute events overnight Pain is well controlled Exam/Review of Systems Vital Signs Vitals Vital Signs Date Temp Pulse Resp B/P (MAP) Pulse Ox O2 O2 Flow FiO2 Time Delivery Rate 08/26/18 98.5 81 18 112/59 95 02:15 (76) 08/25/18 Room Air 15:28 08/25/18 2.0 04:25 Intake and Output 08/25/18 08/25/18 08/26/18 1515:00 23:00 07:00 IntakeIntake Total 320 ml 300 ml 1000 ml OutputOutput Total 300 ml BalanceBalance 320 ml 300 ml 700 ml Exam Free Text/Dictation Right lower extremity: Dressing: clean, dry, and intact, no erythema Sensation intact to light touch in a sural, saphenous, deep peroneal, superfi cial peroneal, medial and lateral plantar nerve distribution. Motor is intact, patient able to dorsiflex and plantarflex ankle and extend and flex great toe. Dorsalis Pedis pulse +2, Brisk capillary refill. Compartments are soft. Calves non-tender to palpation bilaterally. Results Result Diagram: 08/26/18 0433 08/26/18 0433 BELEM DUMONT MD Aug 26, 2018 07:36
[2018-08-26 07:43] VITALS: BP 101/50; PULSE 77; RESP 14
[2018-08-26] MEDS ORDERED: ASPI325T32 PO (07:43)
[2018-08-26] MEDS: DULOXETINE 20 MG CAP DR PO SCH (09:07)
[2018-08-26] MEDS: ASPIRIN (EC) 325 MG TAB PO SCH ×2 (09:08→20:32)
[2018-08-26] MEDS: morphine (ER) 30 MG TAB PO SCH (09:08)
[2018-08-26] MEDS: MAGNESIUM OXIDE 400 MG TAB PO SCH (09:08)
[2018-08-26] MEDS: CALCITRIOL 0.25 MCG CAP PO SCH (09:08)
[2018-08-26] MEDS: GABAPENTIN 300 MG CAP PO SCH ×4 (09:08→20:33)
[2018-08-26] MEDS: LEVETIRACETAM 500 MG TAB PO SCH ×2 (09:09→20:34)
[2018-08-26] MEDS: DOCUSATE SODIUM 100 MG CAP PO SCH ×2 (09:09→20:56)
[2018-08-26] MEDS: CALCIUM CARBONATE 1.25 GM TAB PO SCH ×3 (09:09→20:34)
--- NOTE | 2018-08-26 09:36 | NUR ---
PT NOTE [facility] Patient: Monica Lind : 1955 Age/Sex: 63/F Unit#: [id number] Room/Bed: 422/A User: Tina Alvarado PTA Date: 08/26/18 09:10 Type: PT Technical Record Therapy day number 2 Subjective Current complaint of pain Pain Scale NUMERIC Pain Intensity 8 (0-10) Patient Stated Goal for Pain Relief 0 (0-10) Pain Level Comment incisional; premedicated Exercise Assessment Label Bilat Lower Extremity Exercise Type Active ROM Additional Exercise Comments GERA ELISABETH Exercise Start Time 09:26 Exercise End Time 09:36 Total Exercise Time 10 min (8-127) Supine to Sit Minimum Assist Transfer Sit to Stand Ability Stand by Assist Bed Mobility Sit to Supine Minimum Assist Patient uses wheelchair Not Applicable Gait Training Start Time 09:10 Gait Assist Levels Stand by Assist Assistive Devices Front Wheel Walker Ambulation Distance 60 feet Additional Gait Comments decreased emery, VCs on fwd gaze Gait Training End Time 09:25 Total Gait Training Treatment Time 15 min (8-127) Weight Bearing Assessment Label Right Lower Extremity Weight Bearing Status Full Weight Bearing Static Sitting Balance Good Dynamic Sitting Balance Good Standing Static Balance Good Dynamic Standing Balance Fair plus Additional Balance Assessments Comments with FWW Safety Judgement Good Activity Tolerance Good Equipment Present A pump Post Treatment Pain Intensity 7 0-10 Variance Documentation see PT note Total Treament Time 25 min (8-127) Total Minutes 25 Total Units 2 PT Technical Record Comment PT NOTE S: "I have some burning pain in my incision." Agreed to skilled PT. Cleared and premedicated by BORA Shaffer. O: Received awake in semi-caldwell. See tech record for assist levels. Min A with R LE during transfers. No c/o dizziness upon sittng. STS with FWW. Gait training with FWW, 3 point gait initially d/t pain but progressed to reciprocal gait with decresaed emery, VCs on fwd gaze. Returned back to bed d/t fatigue and pain. Completed GERA HEP. Left in supine, call light and all necessities within reach, SCDs on. A: Pt refugio tx well. Increased gait distance with decreased assist level. Pt states she got up to walk 4 times yesterday. Pt denies any stairs at home and has all approprate DMEs. P: Continue with POC.
[2018-08-26] MEDS: HYDROmorphONE 2 MG TAB PO PRN ×4 (10:28→22:34)
--- NOTE | 2018-08-26 10:54 | CONS ---
Assessment/Plan Assessment/Plan Problems: (1) Seizure disorder Status: Chronic Comment: Controlled. Cont. levetiracetam (2) Gastroesophageal reflux disease Status: Chronic Comment: Controlled. Cont. pantoprazole Qualifiers: Esophagitis presence: without esophagitis Qualified Codes: K21.9 - Gastro- esophageal reflux disease without esophagitis (3) Chronic pain syndrome Status: Chronic Comment: Pt. chronically taking narcotics at home (4) Postprocedural hypothyroidism Status: Chronic Comment: Cont. LT4 daily (5) Postprocedural hypoparathyroidism Status: Chronic Comment: Calcium mildly low but acceptable range in hypoparathyroid pt. Cont. calcium and calcitriol at these doses. Would not increase doses unless symptomatic. (6) Anemia Status: Chronic Comment: This is chronic in this pt. Stable Hgb. No need for therapy at this time. Qualifiers: Anemia type: unspecified type Qualified Codes: D64.9 - Anemia, unspecified (7) Osteoarthritis of right hip Status: Resolved Comment: Per primary team. (8) History of total right hip arthroplasty Onset Date: ~ 08/24/2018 Status: Acute Comment: Doing well POD#2. Would be ready for d/c home per primary team. Pain is controlled and pt. ambulating w/ PT. However, must hold d/c. See below. (9) SIADH (syndrome of inappropriate ADH production) Status: Acute Comment: Pt. has developed significant hyponatremia. Cannot be d/c'ed home w/ [Na] 125 mEq/dL, especially considering h/o seizure d/o. SIADH could be due to SSRI which pt. is on chronically, levetiracetam, which pt. is on chronically, or narcotics which pt. is on chronically. Suspect it is due to increase in narcotic doses and pain. Whatever the cause, must treat w/ fluid restriction. Will restrict to 500 mL/m2 BSA which is 800 mL/d. Expect [Na] to improve. Once > 130 mEq/dL pt. can be d/c'ed home but would cont. fluid restriction at home after d/c. Consultation Date/Type/Reason Admit Date/Time Aug 24, 2018 at 09:26 Initial Consult Date 08/23/2018 Type of Consult Medicine Reason for Consultation Medical Management Requesting Provider: LEENA NICHOLS Date/Time of Note DATE: 08/26/18 TIME: 10:43 24 HR Interval Summary Constitutional: no complaints, improved (feels ready to go home) Detailed Summary Respiratory: no complaints Cardiovascular: no complaints Gastrointestinal: no complaints Genitourinary: no complaints Musculoskeletal: bone/joint pain (hip but well-controlled) Neurologic: headache (initiall denies complaints but further questioning admits to mild REBOLLEDO) Exam/Review of Systems Exam Vitals VS - Last 72 Hours, by Label Date Temp Pulse Resp B/P (MAP) Pulse Ox O2 O2 Flow FiO2 Time Delivery Rate 08/26/18 98.8 77 14 101/50 100 Room Air 07:43 (67) 08/26/18 98.5 81 18 112/59 95 02:15 (76) 08/25/18 98.6 84 18 118/83 94 19:25 (95) 08/25/18 97.8 70 18 130/63 92 Room Air 15:28 (85) 08/25/18 98.0 68 18 126/61 90 Room Air 08:08 (82) 08/25/18 98.6 81 18 109/58 98 Nasal 2.0 04:25 (75) Cannula 08/25/18 98.4 94 18 105/57 98 00:15 (73) 08/24/18 Nasal 2.0 22:13 Cannula 08/24/18 97.9 94 18 103/53 97 19:30 (70) 08/24/18 98.2 16 102/56 98 Nasal 2.0 19:00 (71) Cannula 08/24/18 98.2 16 110/58 98 Nasal 2.0 18:45 (75) Cannula 08/24/18 98.2 16 106/54 98 Nasal 2.0 18:30 (71) Cannula 08/24/18 98.2 18 108/54 98 Nasal 2.0 18:10 (72) Cannula 08/24/18 92 20 101/47 98 Nasal 2.0 17:58 (65) Cannula 08/24/18 92 17 107/50 98 Nasal 2.0 17:53 (69) Cannula 08/24/18 94 14 99/46 (63) 97 Nasal 2.0 17:48 Cannula 08/24/18 94 12 97/42 (60) 98 Nasal 2.0 17:43 Cannula 08/24/18 94 12 93/41 (58) 96 Nasal 2.0 17:38 Cannula 08/24/18 92 11 96/52 (67) 98 Nasal 2.0 17:33 Cannula 08/24/18 11 95/43 (60) 98 Nasal 2.0 17:28 Cannula 08/24/18 92 14 99/43 (61) 97 Nasal 2.0 17:23 Cannula 08/24/18 92 14 96/42 (60) 99 Nasal 2.0 17:18 Cannula 08/24/18 92 14 99/47 (64) 97 Nasal 2.0 17:13 Cannula 08/24/18 92 15 108/49 98 Nasal 2.0 17:08 (68) Cannula 08/24/18 92 19 103/48 98 Nasal 2.0 17:03 (66) Cannula 08/24/18 94 16 110/45 96 Nasal 2.0 16:58 (66) Cannula 08/24/18 94 15 105/47 95 Nasal 2.0 16:53 (66) Cannula 08/24/18 94 17 105/49 95 Nasal 2.0 16:48 (67) Cannula 08/24/18 96 16 108/53 98 Nasal 2.0 16:43 (71) Cannula 08/24/18 98.5 87 18 98/54 (69) 95 Room Air 10:47 Vital Signs Date Temp Pulse Resp B/P (MAP) Pulse Ox O2 O2 Flow FiO2 Time Delivery Rate 08/26/18 98.8 77 14 101/50 100 Room Air 07:43 (67) 08/25/18 2.0 04:25 Intake and Output 08/25/18 08/25/18 08/26/18 1414:59 22:59 06:59 IntakeIntake Total 320 ml 300 ml 1000 ml OutputOutput Total 300 ml BalanceBalance 320 ml 300 ml 700 ml Constitutional: alert, oriented, well developed Psych: no complaints, nl mood/affect Respiratory: clear to auscultation, normal air movement Cardiovascular: regular rate and rhythm, nl pulses; No edema, No murmurs/extra sounds, No rub Gastrointestinal: soft, nl liver, spleen, non-tender, bowel sounds; No mass, No rebound or guarding Musculoskeletal: nl extremities to inspection Extremities: normal pulses; No cyanosis, No clubbing, No edema Neurological: CREATIVE PRODUCER II-XII intact, nl mental status, nl speech, nl strength Results Result Diagram: 08/26/183 08/26/18432 Results 24hrs Laboratory Tests Test 08/26/18 04:33 White Blood Count 5.5 # Red Blood Count 3.50 L Hemoglobin 8.1 L Hematocrit 26.4 L Mean Corpuscular Volume 75.4 L Mean Corpuscular Hemoglobin 23.1 L Mean Corpuscular Hemoglobin Concent 30.7 L Red Cell Distribution Width 15.9 H Platelet Count 177 # Mean Platelet Volume 10.3 Immature Granulocytes % 0.400 Neutrophils % 68.6 Lymphocytes % 18.5 Monocytes % 12.5 H Eosinophils % 0.0 Basophils % 0.0 Nucleated Red Blood Cells % 0.0 Immature Granulocytes # 0.020 Neutrophils # 3.8 Lymphocytes # 1.0 Monocytes # 0.7 Eosinophils # 0.0 Basophils # 0.0 Nucleated Red Blood Cells # 0.0 Sodium Level 125 L Potassium Level 3.8 Chloride Level 88 L Carbon Dioxide Level 30 Anion Gap 7 Blood Urea Nitrogen 18 Creatinine 0.53 Est Glomerular Filtrat Rate mL/min > 60 Glucose Level 100 Calcium Level 7.5 L Medications Medication Current Medications Gabapentin (Neurontin) 300 mg QHS PO Last administered on 08/25/18at 20:17; Admin Dose 300 MG; Start 08/24/18 at 21:00 Pantoprazole (Protonix Tab) 40 mg DAILY@06 PO Last administered on 08/26/18at 05:31; Admin Dose 40 MG; Start 08/25/18 at 06:00 Docusate Sodium (Colace) 200 mg BID PO Last administered on 08/26/18at 09:09; Admin Dose 200 MG; Start 08/25/18 at 09:00; Stop 08/27/18 at 21:01 Magnesium Hydroxide (Milk Of Mag) 30 ml HS PRN PO .CONSTIPATION; Start 08/24/18 at 16:30 Ketorolac Tromethamine (Toradol) 15 mg Q6H PRN IV .PAIN Last administered on 08/26/18at 04:41; Admin Dose 15 MG; Start 08/24/18 at 16:30 Naloxone HCl (Narcan) 0.2 mg Q2M PRN IV .RESP RATE; Start 08/24/18 at 16:30 IV Flush (NS 3 ml) 3 ml per protocol IV ; Start 08/24/18 at 16:30 Aspirin (Ecotrin) 325 mg BID PO Last administered on 08/26/18 09:08; Admin Dose 325 MG; Start 08/25/18 at 09:00 Calcitriol (Rocaltrol) 0.5 mcg DAILY PO Last administered on 08/26/18 09:08; Admin Dose 0.5 MCG; Start 08/24/18 at 17:30 Duloxetine HCl (Cymbalta) 40 mg DAILY PO Last administered on 08/26/18 09:07; Admin Dose 40 MG; Start 08/25/18 at 09:00 Gabapentin (Neurontin) 600 mg TID PO Last administered on 08/26/18 09:08; Admin Dose 600 MG; Start 08/24/18 at 21:00 Levetiracetam (Keppra) 500 mg BID PO Last administered on 08/26/18 09:09; Admin Dose 500 MG; Start 08/24/18 at 21:00 Levothyroxine Sodium (Synthroid) 175 mcg BEFORE BREAKFAST PO Last administered on 08/26/18 06:07; Admin Dose 175 MCG; Start 08/25/18 at 07:00 Magnesium Oxide (Mag-Ox 400) 400 mg DAILY PO Last administered on 08/26/18 09:08; Admin Dose 400 MG; Start 08/25/18 at 09:00 Ropinirole HCl (Requip) 1 mg HS PO Last administered on 08/25/18 22:36; Admin Dose 1 MG; Start 08/24/18 at 21:00 Zolpidem Tartrate (Ambien) 5 mg HS MAY REPEAT X 1 PRN PO INSOMNIA Last administered on 08/26/18 01:37; Admin Dose 5 MG; Start 08/24/18 at 17:30 Calcium Carbonate (Oyster Shell Calcium) 1.25 gm TID PO Last administered on 08/26/18 09:09; Admin Dose 1.25 GM; Start 08/24/18 at 21:00 Ondansetron HCl (Zofran Inj) 4 mg Q4H PRN IV NAUSEA/VOMITING Last administered on 08/25/18 05:57; Admin Dose 4 MG; Start 08/25/18 at 05:45 Ferric Sodium Gluconate Complex 125 mg/Sodium Chloride 100 ml @ 100 mls/hr DAILY@1300 IVPB Last administered on 08/25/18 14:36; Admin Dose 100 MLS/HR; Start 08/25/18 at 14:00; Stop 08/27/18 at 13:59 Morphine Sulfate (Ms Contin (Er)) 30 mg DAILY PO Last administered on 08/26/18at 09:08; Admin Dose 30 MG; Start 08/26/18 at 09:00 Hydromorphone HCl (Dilaudid) 2 mg Q4H PRN PO SEVERE PAIN LEVEL 7-10 Last administered on 08/26/18at 10:28; Admin Dose 2 MG; Start 08/26/18 at 08:30 IRAM FRANCIS MD Aug 26, 2018 10:53
[2018-08-26] MEDS: SOD FERRIC GLUC COMPLX 125 MG in SOD CHLORIDE 0.9% 100 ML IVPB SCH (13:02)
--- NOTE | 2018-08-26 14:00 | NUR ---
Placed a call to DR Reyna's office and left message to his non urgent voice mail that Dr Morris did not clear patient to go home due to low sodium level.
--- NOTE | 2018-08-26 14:12 | NUR ---
PT NOTE [facility] Patient: Monica Lind : 1955 Age/Sex: 63/F Unit#: [id number] Room/Bed: 422/A User: Tina Alvarado PTA Date: 08/26/18 13:48 Type: PT Technical Record Therapy day number 2 Subjective Current complaint of pain Pain Scale NUMERIC Pain Intensity 8 (0-10) Patient Stated Goal for Pain Relief 0 (0-10) Pain Level Comment incisional; premedicated Transfer Training Start Time 13:48 Supine to Sit Contact Guard Assist Transfer Sit to Stand Ability Stand by Assist Bed Mobility Sit to Supine Minimum Assist Transfer Training End Time 13:57 Total Transfer Training Time 9 min (8-127) Patient uses wheelchair Not Applicable Gait Training Start Time 13:58 Gait Assist Levels Stand by Assist Assistive Devices Front Wheel Walker Ambulation Distance 100 feet Additional Gait Comments reciprocal gait, uneven step length, decreased emery Gait Training End Time 14:12 Total Gait Training Treatment Time 14 min (8-127) Weight Bearing Assessment Label Right Lower Extremity Weight Bearing Status Full Weight Bearing Static Sitting Balance Good Dynamic Sitting Balance Good Standing Static Balance Good Dynamic Standing Balance Fair plus Additional Balance Assessments Comments with FWW Safety Judgement Good Activity Tolerance Good Equipment Present A pump IV pump Post Treatment Pain Intensity 8 0-10 Variance Documentation see PT note Total Treament Time 23 min (8-127) Total Minutes 23 Total Units 2 PT Technical Record Comment PT NOTE S: "I've been getting up to go to the bathroom. The burning is still there." Agreed to skilled PT. Cleared and premedicated by BORA Shaffer. O: Received awake in supine with at bedside. See tech record for assist levels. Gait training with FWW, reciprocal gait, uneven step lengths, decreased emery, no LOB. Returned to EOB. Min A with R LE back to bed by . Repositioning to HOB. Left in supine, call light and all necessities within reach, SCDs on. Informed RN. A: Pt refugio tx well. Improved gait distance and posture while ambulating. Continues to require some assist back to bed d/t weakness. Pt reported improved burning sensation in surgical site post tx. P: Continue to progress gait training and strength. Continue with POC.
[2018-08-26 14:50] VITALS: BP 90/53; PULSE 90; RESP 14
--- NOTE | 2018-08-26 18:43 | NUR ---
EOSS: Patient was cleared by PT today but Dr Morris did not clear the discharge due to low sodium. Patient on 800 ml fluid restriction. Medicated for right hip pain with dilaudid 2 mg p.o every 4 hours and patient is taking it RTC, with relief. VItals stable. Able to walk around the unit with assist,tolerated well. Needs attended.
[2018-08-26 19:15] VITALS: BP 99/54; PULSE 85; RESP 18
[2018-08-26] MEDS: ROPINIROLE 1 MG TAB PO SCH (20:34)
[2018-08-26] MEDS: HYDROmorphONE 1 MG/ML SYG IV PRN (23:49)
[2018-08-27 02:45] VITALS: BP 91/54; PULSE 107; RESP 20
[2018-08-27] MEDS: HYDROmorphONE 1 MG/ML SYG IV PRN ×5 (02:59→15:40)
[2018-08-27] MEDS: LEVOTHYROXINE 175 MCG TAB PO SCH (06:20)
[2018-08-27] MEDS: PANTOPRAZOLE (EC) 40 MG TAB PO SCH (06:20)
[2018-08-27 07:18] VITALS: BP 93/50; PULSE 93; RESP 14
[2018-08-27] MEDS: DOCUSATE SODIUM 100 MG CAP PO SCH (09:00)
[2018-08-27] MEDS: CALCIUM CARBONATE 1.25 GM TAB PO SCH ×2 (09:01→12:42)
[2018-08-27] MEDS: GABAPENTIN 300 MG CAP PO SCH ×2 (09:01→12:43)
[2018-08-27] MEDS: MAGNESIUM OXIDE 400 MG TAB PO SCH (09:01)
[2018-08-27] MEDS: LEVETIRACETAM 500 MG TAB PO SCH (09:01)
[2018-08-27] MEDS: DULOXETINE 20 MG CAP DR PO SCH (09:01)
[2018-08-27] MEDS: CALCITRIOL 0.25 MCG CAP PO SCH (09:01)
[2018-08-27] MEDS: ASPIRIN (EC) 325 MG TAB PO SCH (09:02)
[2018-08-27] MEDS: morphine (ER) 30 MG TAB PO SCH (09:28)
[2018-08-27] MEDS ORDERED: HYDR2TAB3 PO (09:29)
--- NOTE | 2018-08-27 09:41 | DS ---
Date/Time of Note Date/Time of Note DATE: 08/27/18 TIME: 09:32 Discharge Summary Admission/Discharge Info Admit Date/Time Aug 24, 2018 at 09:26 Discharge Date/Time @ 1200 Discharge Diagnosis R hip osteoarthritis now s/p total right hip replacement Patient Condition: Fair Consults Janina: medicine for medical management Procedures R total hip arthroplasty: The patient was placed supine on the operating room table. The right hip was prepped and draped in usual manner. An anterior incision was made. The plane between the sartorius and tensor fascia ryan was developed in a blunt fashion. Branches of the circumflex vessels were identified and cauterized with aqua mantis. The hip capsule was opened. A large effusion and arthritis was encountered. The neck cut was made 1 cm proximal to the lesser trochanter. The acetabular preparation was done with [employer] reamers up to a size 47. A 48 trial cup was well fitting. The 48 cup was placed in 20 degrees of anteversion and 40 degrees of abduction. One screw was used to enhance fixation. Liner was placed to accommodate a 32 mm femoral head. The femur was then prepared for a size 1 component. The lower extremity was placed in extension and external rotation. The size 1 trial stem with a standard offset neck resulted in a stable hip with equal leg length. X-rays confirm proper alignment of the implants. Once satisfactory alignment was confirmed, the trials were removed and final components placed including a size 1 stem, 32 mm ceramic head. The hip was injected with pain cocktail. Stasis was confirmed and the wound closed in layers using #1 strata fix for deep fascia, 2-0 Vicryl for subcutaneous tissue and 3-0 Monocryl for the skin. Patient was transferred to the recovery room in stable condition Hx of Present Illness 63 y/o C F w/ h/o OA, RA, post-procedural hypothyroidism and hypoparathyroidism, seizure disorder, and breast cancer who has had progressive difficulty to the point that she can barely walk. She needed help with putting on socks and shoes and had a significant amount of pain in her hip area. Admitted 3 days ago for scheduled R GERA which was done on the day of admission. Hospital Course Admitted and had surgical procedure as noted above. Pt. who already suffers chronic pain had issues w/ pain management. Pt. did well w/ PT and was able to ambulate. Pain meds were reduced but pt. had trouble sleeping. On POD#1 serum sodium concentration was 130 mEq/dL. On POD#2 concentration had dropped to 125 mEq/dL. Despite surgical readiness for going home, discharge was held and pt. was placed on a fluid restriction of 800 mL/d. Pt. is on SSRI, opiates, and anti-seizure medication, all of which stimulate ADH. Likely that w/ post- operative increase in opiates and fluids given intraoperatively, pt. developed water overload. Once placed on fluid restriction pt. had increase in serum sodium concentration to 133 mEq/dL. O/w doing well. Pain fairly well-managed. Ambulating w/ PT. Ready for d/c home. Home Meds Reported Medications Pregabalin* (Lyrica*) 75 Mg Capsule, 75 MG PO DAILY, CAP 08/24/18 Magnesium Oxide* (Magnesium Oxide*) 400 Mg Tablet, 400 MG PO DAILY, TAB 08/24/18 Duloxetine Hcl* (Cymbalta*) 20 Mg Capsule.dr, 40 MG PO DAILY, CAP 08/24/18 Temazepam* (Restoril*) 30 Mg Capsule, 30 MG PO HS PRN for INSOMNIA, CAP 08/24/18 Morphine Sulfate* (Ms Contin*) 15 Mg Tablet.sa, 30 MG PO Q8 PRN for PAIN, TAB.SA 08/24/18 Ropinirole Hcl* (Requip*) 1 Mg Tablet, 1 MG PO HS, TAB 08/24/18 Gabapentin* (Gabapentin*) 600 Mg Tablet, 600 MG PO TID, #90 TAB 08/24/18 Calcitriol* (Calcitriol*) 0.5 Mcg Capsule, 0.5 MCG PO DAILY, CAP 08/24/18 Levetiracetam* (Keppra*) 500 Mg Tablet, 500 MG PO BID, TAB 08/24/18 Levothyroxine Sodium* (Synthroid*) 175 Mcg Tablet, 175 MCG PO BEFORE BREAKFAST, #30 TAB 08/24/18 Discontinued Reported Medications Duloxetine Hcl* (Cymbalta*) 20 Mg Capsule.dr, 40 MG PO QAM, CAP 02/02/18 Oxycodone HCl/Acetaminophen (Percocet 10-325 mg Tablet) 1 Each Tablet, 1 EACH PO Q4H, TAB 02/02/18 Magnesium Oxide* (Magnesium Oxide*) 400 Mg Tablet, 400 MG PO BID, TAB 02/02/18 Morphine Sulfate* (Ms Contin*) 15 Mg Tablet.sa, 15 MG PO TID, TAB 11/03/17 Acetamin/Butalbital/Caffeine* (Fioricet*) [id number] Tab, 1 TAB PO Q6 PRN for PAIN LEVEL 1-5, TAB 11/02/17 Calcitriol* (Rocaltrol*) 0.25 Mcg Capsule, 0.25 MCG PO DAILY, CAP 11/02/17 Levetiracetam* (Keppra*) 500 Mg Tablet, 500 MG PO BID, TAB 11/02/17 Levothyroxine Sodium* (Synthroid*) 175 Mcg Tablet, 175 MCG PO BEFORE BREAKFAST, #30 TAB 11/02/17 Discontinued Scripts Methocarbamol* (Methocarbamol*) 500 Mg Tablet, 500 MG PO TID, #30 TAB Prov:ALTON WONG 03/07/18 [Vancomycin Iv Per Pharmacy] 1 EA EACH No Conflict Check, 0 EA XX .PER PROTOCOL for 35 Days, #70 IV.ACC Prov:ALTON WONG 03/07/18 Levofloxacin* (Levaquin*) 750 Mg Tablet, 750 MG PO DAILY@06, #38 TAB Prov:ALTON WONG 03/07/18 Gabapentin* (Gabapentin*) 300 Mg Capsule, 900 MG PO TID, #90 CAP Prov:ALTON WONG 03/07/18 Calcium Citrate* (Citracal*) 950 Mg Tab, 630 MG PO AC MEALS for 30 Days, #90 TAB To prevent hypocalcemia Prov:JONATHAN WALTON MD 11/05/17 Follow-up Plan f/u w/ Dr. Moe as scheduled; f/u w/ PMD as scheduled Primary Care Provider Not On Staff Doctor Time spent on discharge: > 30 minutes Pending Labs Laboratory Tests Test 08/27/18 04:31 White Blood Count 5.6 10^3/ul (4.8-10.8) Red Blood Count 3.68 10^6/ul (4.20-5.40) Hemoglobin 8.4 g/dl (12.0-16.0) Hematocrit 27.7 % (37.0-47.0) Mean Corpuscular Volume 75.3 fl (82.0-101.0) Mean Corpuscular Hemoglobin 22.8 pg (29.0-33.0) Mean Corpuscular Hemoglobin Concent 30.3 g/dl (32.0-37.0) Red Cell Distribution Width 16.1 % (11.5-14.5) Platelet Count 199 10^3/UL (140-415) Mean Platelet Volume 10.8 fl (7.4-10.4) Immature Granulocytes % 0.400 % (0.001-0.429) Neutrophils % % (39.0-77.0) Lymphocytes % % (15.0-51.0) Monocytes % % (0.0-11.0) Eosinophils % % (0.0-7.0) Basophils % % (0.0-2.0) Nucleated Red Blood Cells % 0.0 /100WBC (0.0-0.0) Immature Granulocytes # 0.020 10^3/ul (0.0-0.031) Neutrophils # 10^3/ul (1.6-7.5) Lymphocytes # 10^3/ul (0.8-2.9) Monocytes # 10^3/ul (0.3-0.9) Eosinophils # 10^3/ul (0.0-0.5) Basophils # 10^3/ul (0.0-0.1) Nucleated Red Blood Cells # 10^3/ul (0.0-0.0) Sodium Level 133 mmol/L (135-144) Potassium Level 4.0 mmol/L (3.5-5.1) Chloride Level 96 mmol/L (97-110) Carbon Dioxide Level 34 mmol/L (21-31) Anion Gap 3 (5-13) Blood Urea Nitrogen 11 mg/dl (7-20) Creatinine 0.55 mg/dl (0.44-1.00) Est Glomerular Filtrat Rate mL/min > 60 mL/min (>60) Glucose Level 111 mg/dl (70-220) Calcium Level 8.5 mg/dl (8.4-10.2) IRAM FRANCIS MD Aug 27, 2018 09:41
--- NOTE | 2018-08-27 11:10 | NUR ---
Therapy day number 3 Subjective Current complaint of pain Pain Scale NUMERIC Pain Intensity 5 (0-10) Patient Stated Goal for Pain Relief 0 (0-10) Pain Level Comment incisional; premedicated Transfer Training Start Time 10:40 Supine to Sit Stand by Assist Transfer Sit to Stand Ability Stand by Assist Bed Mobility Sit to Supine Minimum Assist Transfer Training End Time 10:55 Total Transfer Training Time 15 min (8-127) Gait Training Start Time 10:55 Gait Assist Levels Stand by Assist Assistive Devices Front Wheel Walker Ambulation Distance 100 feet Additional Gait Comments decreased emery, step through gait Gait Training End Time 11:10 Total Gait Training Treatment Time 15 min (8-127) Weight Bearing Assessment Label Right Lower Extremity Weight Bearing Status Full Weight Bearing Static Sitting Balance Good Dynamic Sitting Balance Good Standing Static Balance Good Dynamic Standing Balance Fair plus Additional Balance Assessments Comments with FWW Safety Judgement Good Activity Tolerance Good Post Treatment Pain Intensity 6 0-10 Total Treatment Time 30 min (8-127) Total Minutes 30 Total Units 2 PT Technical Record Comment PT NOTE S: Joleen SAHNI cleared patient for PT treatment. Patient agreeable to participate with PT treatment, c/o incisional pain rated at 5/10, scheduled for discharge home today. O: Received awake in supine position in bed. Patient able to come sitting position at the EOB with SBA. Sit to stand with SBA and FWW, verbal cues for proper hand placement to increase of transfer. Gait training with FWW, decreased emery, step through gait, no LOB. Reviewed anterior hip precautions. Patient returned to EO, required min assist to lift R LE back into bed. Patient left in supine, call light and all necessities within reach, Joleen SAHNI notified of patient's status at the end of the session. A: Pt refugio tx well. Continues to require some assist with RLE back to bed due to weakness. P: Continue to progress gait training and strength. Continue with POC. Patient scheduled for discharge today.
--- NOTE | 2018-08-27 11:51 | NUR ---
Discharge arrangements Followed up with on-call CM from [facility] , able to continue home health services and confirmed with Radha.
[2018-08-27] MEDS: SOD FERRIC GLUC COMPLX 125 MG in SOD CHLORIDE 0.9% 100 ML IVPB SCH (12:43)
--- NOTE | 2018-08-27 16:00 | NUR ---
DISCHARGE NOTE: Pt stable for discharge. Discharge instructions given to pt, verbalized understanding, prescriptions placed in folder. IV removed, tip intact, site asymptomatic. at bedside, was unhappy that the hospital always discharges "at this time", explained that the pt wanted to wait until after lunch and her iron infusion. All valuables collected by pt and . Pt taken down to front lobby in wheelchair by Cristiane LALA.
== END 2018-08-27 15:53 | disposition home health service (06) | DRG 470 ==
LOC: REC 09:26 → MS1 18:10
PROVIDERS: ADMIT Orthopaedic Surgery; ATTEND Orthopaedic Surgery
PROC: 0SR904A Replacement of Right Hip Joint with Ceramic on Polyethylene Synthetic Substitute, Uncemented, Open Approach (ICD-10-PCS; principal; 2018-08-24 12:30)
DX: M16.11 Unilateral primary osteoarthritis, right hip (principal); E22.2 Syndrome of inappropriate secretion of antidiuretic hormone; M06.9 Rheumatoid arthritis, unspecified; E89.0 Postprocedural hypothyroidism; G89.4 Chronic pain syndrome; E89.2 Postprocedural hypoparathyroidism; G40.909 Epilepsy, unspecified, not intractable, without status epilepticus; K21.9 Gastro-esophageal reflux disease without esophagitis; D64.9 Anemia, unspecified; F32.9 Major depressive disorder, single episode, unspecified
CPT/HCPCS: 73530; 80048; 82330; 82728; 83540; 85025; 86692; 87081; 87086; 88304; 88311; 97110; 97116; 97163; 97165; 97530; C1713; C1776; J0131; J0171; J0735; J1100; J1170; J1885; J2250; J2405; J2597; J2795; J2916; J3010; J7120

== ENCOUNTER → 2018-09-11 | Outpatient (CLI) | payer MEDICARE, OTHER ==
[~2018-09-11] MED LIST changes: +ASPI325T32 PO; -BACITRACIN 50000 UNITS INJ IRR ONE; -CALC0.255 PO; +CALC0.5C10 PO; -CITRACAL PO; -FIORICET PO; +GABA-526 PO; -GABA300C16 PO; +HYDR2TAB3 PO; -LEVO750T25 PO; +LYR75 PO; -METH500T8 PO; -OXYC-209 PO; +ROPI1TAB41 PO; +TEMA30CA6 PO; -Vancomycin Iv Per Pharmacy XX
--- NOTE | 2018-09-11 11:13 | PN ---
Date/Time of Note Date/Time of Note DATE: 09/11/18 TIME: 11:12 Assessment/Plan VTE Prophylaxis Pharmacological prophylaxis: other Assessment/Plan Assessment/Plan 63-year-old female who is two-week status post right hip replacement. She is advised to continue physical therapy and follow-up in 4 weeks. The patient was reassured and advised that pain will gradually improve over the next few weeks. Subjective 24 Hr Interval Summary Free Text/Dictation Monica is 2 weeks status post right hip replacement. She is progressing well and is pleased with her outcome. She does have pain but this is improving Exam/Review of Systems Exam Vitals Patient is afebrile Exam Right hip incision is well-healed. Mild swelling is noted. Range of motion is somewhat limited. Right lower extremity is 5 mm longer than the left. X-rays of the right hip show total hip replacement in good position with no evidence of loosening. Mild arthritis of the left hip is noted LEENA NICHOLS Sep 11, 2018 11:13
--- NOTE | 2018-09-12 18:25 | RADRPT ---
PROCEDURE: XR Right hip and pelvis. CLINICAL INDICATION: Right hip pain. Pelvic pain. Postop. TECHNIQUE: Three views. Frontal pelvis. Frontal and lateral right hip. COMPARISON: No prior studies are available for comparison. FINDINGS: There is no fracture or dislocation. Vascular calcifications are present consistent with atherosclerosis. There is a right hip total arthroplasty which appears satisfactory. The left hip is grossly normal. There is no lytic or blastic lesion. There are degenerative changes of the lower lumbar spine. IMPRESSION: 1. Satisfactory postoperative appearance of the right hip. 2. Atherosclerosis. 3. Degenerative changes of the lower lumbar spine. 4. Otherwise unremarkable study. RPTAT: QQ .Elan Cote MD, MD Date Time Electronically viewed and signed by .Elan Cote MD, on 09/12/2018 18:25 .R/
== END | disposition home or self-care (01) ==
LOC: HKI 10:17
PROVIDERS: ATTEND Orthopaedic Surgery
DX: M16.11 Unilateral primary osteoarthritis, right hip (principal); Z96.641 Presence of right artificial hip joint
CPT/HCPCS: 73502

== ENCOUNTER 2018-11-16 06:26 | Inpatient (IN) | payer MEDICARE, OTHER ==
[~2018-11-16] VITALS: Ht 152.4 cm; Wt 60.9 kg
[2018-11-16] VITALS (33 sets, daily range): BP systolic 82–112; BP diastolic 44–68; PULSE 80–88; RESP 7–36; Ht 152.4 cm; Wt 60.9 kg
[~2018-11-16 06:26] MED LIST changes: +ACETAMINOPHEN 500 MG TAB PO ONE; +CLINDAMYCIN 600 MG/D5W (PMX) 50 ML IVPB SCH; +DEXAMETHASONE 4 MG/ML 1 ML INJ IV ONE; +LACTATED RINGER'S 1,000 ML IV SCH
[2018-11-16] MEDS ORDERED: BACITRACIN 50000 UNITS INJ ONE (07:09)
[2018-11-16] MEDS ORDERED: POLYMYXIN B 500000 UNIT INJ ONE (07:12)
[2018-11-16] MEDS ORDERED: ACETAMINOPHEN 1000MG/100ML IV 100 ML IVPB ONE (07:30)
[2018-11-16] MEDS ORDERED: DESMOPRESSIN 20 MCG in SOD CHLORIDE 0.9% 50 ML IVPB ONE (07:45)
[2018-11-16] MEDS ORDERED: TRANEXAMIC ACID 1GM/100ML(PMX) 200 ML ONE (07:53)
[2018-11-16] MEDS ORDERED: CALC-143 PO (07:59)
[2018-11-16] MEDS ORDERED: CALC0.255 PO (08:00)
[2018-11-16] MEDS ORDERED: PANT40TA3 PO (08:00)
[2018-11-16] MEDS ORDERED: OXYC-380 PO (08:03)
[2018-11-16] MEDS ORDERED: CYCL10TA7 PO (08:04)
--- NOTE | 2018-11-16 08:09 | PREAC ---
Date/Time of Note Date/Time of Note DATE: 11/16/18 TIME: 08:06 Anesthesia Eval and Record Evaluation Time Pre-Procedure Interview DATE: 11/16/18 TIME: 08:06 Age 63 Sex female NPO: 8 hrs Preoperative diagnosis Left Hip Osteoarthritis Planned procedure Left Total Hip Arthroplasty Past Medical History Past Medical History: Includes Endo: Hypothyroid Neuro: Seizure disorder, Other (Chronic Pain Syndrome) Surgery & Anesthesia Issues No known issue (Hx Chronic Pain Syndrome, Difficulty controlling pain last time) Meds Anticoagulation: No Beta Rosy within 24 hr: No Reason Beta Rosy not given: Pt. not on B-Rosy Reported Medications Cyclobenzaprine Hcl* (Cyclobenzaprine Hcl*) 10 Mg Tablet, 20 MG PO Q8 PRN for MUSCLE SPASMS, #60 TAB 11/16/18 Oxycodone Hcl-Acetaminophen* (Endocet*) 10-325 Mg Tablet, 1 TAB PO Q4H PRN for PAIN, TAB 11/16/18 Pantoprazole* (Protonix*) 40 Mg Tablet.dr, 40 MG PO DAILY, TAB 11/16/18 Calcitriol* (Rocaltrol*) 0.25 Mcg Capsule, 0.25 MCG PO DAILY, CAP 11/16/18 Calcium Citrate/Vitamin D (Citracal-Vitamin D 200 MG-250) 1 Each Tablet, 1 EACH PO BID, TAB 11/16/18 Pregabalin* (Lyrica*) 75 Mg Capsule, 75 MG PO DAILY, CAP 08/24/18 Temazepam* (Restoril*) 30 Mg Capsule, 30 MG PO HS PRN for INSOMNIA, CAP 08/24/18 Morphine Sulfate* (Ms Contin*) 15 Mg Tablet.sa, 30 MG PO Q8 PRN for PAIN, TAB.SA 08/24/18 Ropinirole Hcl* (Requip*) 1 Mg Tablet, 1 MG PO HS, TAB 08/24/18 Gabapentin* (Gabapentin*) 600 Mg Tablet, 600 MG PO TID, #90 TAB 08/24/18 Levetiracetam* (Keppra*) 500 Mg Tablet, 500 MG PO BID, TAB 08/24/18 Levothyroxine Sodium* (Synthroid*) 175 Mcg Tablet, 175 MCG PO BEFORE BREAKFAST, #30 TAB 08/24/18 Discontinued Reported Medications Magnesium Oxide* (Magnesium Oxide*) 400 Mg Tablet, 400 MG PO DAILY, TAB 08/24/18 Duloxetine Hcl* (Cymbalta*) 20 Mg Capsule.dr, 40 MG PO DAILY, CAP 08/24/18 Calcitriol* (Calcitriol*) 0.5 Mcg Capsule, 0.5 MCG PO DAILY, CAP 08/24/18 Discontinued Scripts Hydromorphone Hcl* (Hydromorphone Hcl*) 2 Mg Tablet, 2 MG PO Q4H PRN for PAIN for 7 Days, #30 TAB 0 Refills Prov:IRAM FRANCIS MD 08/27/18 Aspirin (Aspir-Flaca) 325 Mg Tablet., 325 MG PO BID for 84 Days Prov:BELEM DUMONT MD 08/26/18 Current Medications Lactated Ringer's 1,000 ml @ 25 mls/hr Q24H IV ; Start 11/16/18 at 06:00 Clindamycin HCl/ Dextrose 50 ml @ 100 mls/hr PRE-OP IVPB ; Start 11/16/18 at 06:00; Stop 11/16/18 at 15:00 Desmopressin Acetate 20 mcg/ Sodium Chloride 55 ml @ 110 mls/hr ONCE ONCE IVPB ; Start 11/16/18 at 07:45; Stop 11/16/18 at 08:14 Meds reviewed: Yes Allergies Coded Allergies: Penicillins (Verified Allergy, Unknown, 11/16/18) Sulfa (Sulfonamide Antibiotics) (Verified Allergy, Unknown, 11/16/18) cefaclor (Verified Allergy, Unknown, 11/16/18) cephalexin (Verified Allergy, Unknown, 11/16/18) metoclopramide (Verified Allergy, Unknown, 11/16/18) prochlorperazine (Verified Allergy, Unknown, 11/16/18) trimethobenzamide (Verified Allergy, Unknown, 11/16/18) Allergies Reviewed: Yes Labs/Studies Labs Reviewed: Reviewed by anesthesiologist test: N/A Studies: ECG, CXR Pre-procedure Exam Airway: Adequate mouth opening Mallampati: Mallampati II Teeth: Normal Lung: Normal Heart: Normal ASA Physical Status ASA physical status: 3 Emergency: None Planned Anesthetic General/MAC: LMA Neuraxial: Spinal Planned Pain Management Sub-arachniod narcotics Pre-operative Attestations Prior to commencing anesthesia and surgery, the patient was re-evaluated, there was verification of: *The patient's identity *The results of appropriate recent lab work and preoperative vital signs *The above evaluation not changing prior to induction *Anesthetic plan, risk benefits, alternative and complications discussed with patient/family; questions answered; patient/family understands, accepts and wishes to proceed. KIRIT RICHARDS MD November 16, 2018 08:09
--- NOTE | 2018-11-16 08:31 | HPN ---
Date/Time of Note Date/Time of Note DATE: 11/16/18 TIME: 08:30 Interval H&P Admission Note Pt. seen H&P reviewed: No system changes LEENA NICHOLS November 16, 2018 08:31
[2018-11-16] MEDS ORDERED: FENTAnyl 50 MCG/ML VIAL ONE (08:50)
[2018-11-16] MEDS ORDERED: LIDOCAINE 100 MG SYRINGE ONE (08:50)
[2018-11-16] MEDS ORDERED: MIDAZOLAM 1 MG/ML 2 ML INJ ONE (08:50)
[2018-11-16] MEDS ORDERED: PROPOFOL 20 ML ONE (08:50)
[2018-11-16] MEDS: TRANEXAMIC ACID 1GM/100ML(PMX) 100 ML AT CLOSURE X1 IVPB ONE ×2 (09:40)
[2018-11-16] MEDS ORDERED: ONDANSETRON 4 MG INJ ONE (09:50)
[2018-11-16] MEDS ORDERED: CLINDAMYCIN 600 MG/D5W (PMX) 50 ML IVPB ONE (09:50)
[2018-11-16] MEDS ORDERED: DEXAMETHASONE 4 MG/ML 5 ML INJ ONE (09:51)
[2018-11-16] MEDS ORDERED: PHENYLephrine (100 MCG/ML) 10ML SYG ONE (09:51)
[2018-11-16] MEDS ORDERED: PHENYLephrine 10 MG INJ ONE (09:54)
[2018-11-16] MEDS: TRANEXAMIC ACID 1GM/100ML(PMX) 100 ML AT INCISION X1 IVPB ONE ×2 (10:58)
[2018-11-16] MEDS ORDERED: HYDROmorphONE 1 MG/5 ML IV SYRINGE IV PRN ×3 (11:00)
[2018-11-16] MEDS ORDERED: ONDANSETRON 4 MG INJ IV PRN (11:00)
[2018-11-16] MEDS ORDERED: MIDAZOLAM 1 MG/ML 2 ML INJ IV PRN (11:00)
--- NOTE | 2018-11-16 11:13 | SIPON ---
Date/Time of Note Date/Time of Note DATE: 11/16/18 TIME: 11:11 Operative Report Preoperative Diagnosis Left hip osteoarthritis Postoperative Diagnosis Same Operation/Procedure Performed Left total hip replacement Surgeon see signature line pediatric assistant KARI Diez Anesthesia: spinal Estimated blood loss: 150 - 200 ml's Transfusion Required none Specimen Bone Grafts/Implants Dexter hip, size 1 stem, 48 mm cup, 32 mm ceramic head Complications none LEENA NICHOLS November 16, 2018 11:13
--- NOTE | 2018-11-16 11:18 | OPR ---
Date/Time of Note Date/Time of Note DATE: 11/16/18 TIME: 11:13 Operative Report Procedure Date: November 16, 2018 Preoperative Diagnosis Left hip osteoarthritis Postoperative Diagnosis Same Operation/Procedure Performed Left total hip replacement Surgeon see signature line Marketing Proposal Specialist KARI Diez Anesthesia Type: spinal Estimated Blood Loss: 150 - 200 ml's Transfusion none Specimen bone Grafts/Implants DePuy HIP, size 1 Actis stem, 48 mm cup, 32 mm ceramic head Tubes/Drains none Complications none Pt Condition Post Procedure: stable Disposition: PACU Indications The patient is a 63-year-old female with osteoarthritis of her left hip. She also has inflammatory arthritis with progressive pain despite conservative treatment Procedure Description Patient was placed supine on the operating room table. The left hip was prepped and draped in usual manner. An anterior incision was made. The plane between the sartorius and tensor fascia ryan was developed in a blunt fashion. Branches of the circumflex vessels were identified and cauterized with aqua Mantis. The hip capsule was opened. Effusion and inflammation was encountered. There was loss of cartilage on the femoral head. The neck cut was made 1 cm proximal to the lesser trochanter. Labrum was removed. Reaming of the acetabulum was done with Dexter reamers up to a size 47. A 48 mm trial cup was well well fitting. The 48 [place] cup was placed in 40 degrees of abduction and 20 degrees of anteversion. One screw was used to enhance fixation. A liner was placed to accommodate a 32 mm femoral head. The leg was extended and externally rotated. The IM canal was prepared for Actis stems. The size 1 stem was well fitting. This was placed with a standard offset neck and 32 mm ceramic head for a final reduction. Final x-rays were satisfactory. Leg length was equal. The hip was stable in all positions. The wound was irrigated and injected with pain cocktail. Hemostasis was confirmed and the wound closed in layers using #1 strata fix for deep fascia, 2-0 Vicryl for subcutaneous tissue and 3-0 Monocryl for the skin. Patient was transferred to the recovery room in stable condition LEENA NICHOLS November 16, 2018 11:18
[2018-11-16] MEDS ORDERED: NALOXONE (0.4 MG/ML) INJ IV PRN (11:30)
[2018-11-16] MEDS ORDERED: HYDROmorphONE 1 MG/ML SYG IV PRN (11:30)
[2018-11-16] MEDS ORDERED: MAGNESIUM HYDROXIDE 30ML CUP PO PRN (11:30)
[2018-11-16] MEDS ORDERED: NACL 0.9% 3 ML SYG IV SCH (11:30)
[2018-11-16] MEDS ORDERED: oxyCODONE 5 MG TAB PO PRN ×2 (11:30)
--- NOTE | 2018-11-16 11:44 | PAC ---
Date/Time of Note Date/Time of Note DATE: 11/16/18 TIME: 11:44 Post-Anesthesia Notes Post-Anesthesia Note Last documented vital signs Vital Signs Date Temp Pulse Resp B/P (MAP) Pulse Ox O2 O2 Flow FiO2 Time Delivery Rate 11/16/18 97.6 81 16 96/60 (72) 95 Room Air 08:32 Activity: WNL Respiratory function: WNL Cardiovascular function: WNL Mental status: Baseline Pain reasonably controlled: Yes Hydration appropriate: Yes Nausea/Vomiting absent: Yes FIDENCIO MCCARTHY November 16, 2018 11:44
[2018-11-16] MEDS: LACTATED RINGER'S 1,000 ML IV SCH ×2 (12:27→14:24)
[2018-11-16] MEDS: KETOROLAC 15 MG INJ IV PRN ×2 (14:23→20:19)
[2018-11-16] MEDS: oxyCODONE 5 MG TAB PO PRN ×2 (15:53→19:56)
[2018-11-16] MEDS ORDERED: HYDROmorphONE 2 MG/ML SYG IV PRN (17:00)
[2018-11-16] MEDS ORDERED: ZOLPIDEM 5 MG TAB PO PRN (18:00)
--- NOTE | 2018-11-16 18:07 | CONS ---
Assessment/Plan Assessment/Plan Problems: (1) Status post left hip replacement Onset Date: ~ 11/16/2018 Status: Acute Comment: Postoperatively appears to be doing well without evidence of complications. Continue current management expectantly (2) Postprocedural hypothyroidism Status: Chronic Comment: Continue with replacement therapy (3) Postprocedural hypoparathyroidism Status: Chronic Comment: Tinea with replacement using calcitriol and oral calcium supplementation (4) Anemia Status: Chronic Comment: Basic evaluation Qualifiers: Qualified Codes: D64.9 - Anemia, unspecified (5) Rheumatoid arthritis Status: Chronic Comment: Noted. Qualifiers: Qualified Codes: M05.9 - Rheumatoid arthritis with rheumatoid factor, unspecified (6) Chronic pain syndrome Status: Chronic Comment: Dr. Carroll is going to be involved in her care to help manage this (7) Gastroesophageal reflux disease Status: Chronic Comment: Maintain proton pump inhibitor therapy Qualifiers: Qualified Codes: K21.9 - Gastro-esophageal reflux disease without esophagitis (8) Personal history of malignant neoplasm of breast Status: Chronic Comment: Noted. Consultation Date/Type/Reason Admit Date/Time November 16, 2018 at 11:30 Date of Consultation: November 16, 2018 Type of Consult Internal medicine Reason for Consultation Postoperative assistance after hip arthroplasty Requesting Provider: LEENA NICHOLS Date/Time of Note DATE: 11/16/18 TIME: 18:02 Hx of Present Illness Charming 63-year-old female admitted electively for left hip re placement. She had recent right hip replacement 3 months ago and is done quite nicely from that and has a history of a left total knee replacement within the last 12 months. She also has a history of chronic pain syndrome, fibromyalgia and other medical issues. She is seen postoperatively up on the medical surgical unit and is doing well Constitutional: no complaints Eyes: no complaints ENT: no complaints Respiratory: no complaints Cardiovascular: no complaints Gastrointestinal: no complaints Genitourinary: no complaints Musculoskeletal: no complaints Skin: no complaints Neurologic: no complaints Past Medical History Medical History: cancer (History of bilateral breast cancer), GERD, hypothyroid, other (Postprocedural hypothyroidism; postprocedural hypopara thyroidism with hypocalcemia; rheumatoid arthritis; osteoarthritis; chronic pain syndrome;) Home Meds Reported Medications Cyclobenzaprine Hcl* (Cyclobenzaprine Hcl*) 10 Mg Tablet, 20 MG PO Q8 PRN for MUSCLE SPASMS, #60 TAB 11/16/18 Oxycodone Hcl-Acetaminophen* (Endocet*) 10-325 Mg Tablet, 1 TAB PO Q4H PRN for PAIN, TAB 11/16/18 Pantoprazole* (Protonix*) 40 Mg Tablet.dr, 40 MG PO DAILY, TAB 11/16/18 Calcitriol* (Rocaltrol*) 0.25 Mcg Capsule, 0.25 MCG PO DAILY, CAP 11/16/18 Calcium Citrate/Vitamin D (Citracal-Vitamin D 200 MG-250) 1 Each Tablet, 1 EACH PO BID, TAB 11/16/18 Pregabalin* (Lyrica*) 75 Mg Capsule, 75 MG PO DAILY, CAP 08/24/18 Temazepam* (Restoril*) 30 Mg Capsule, 30 MG PO HS PRN for INSOMNIA, CAP 08/24/18 Morphine Sulfate* (Ms Contin*) 15 Mg Tablet.sa, 30 MG PO Q8 PRN for PAIN, TAB.SA 08/24/18 Ropinirole Hcl* (Requip*) 1 Mg Tablet, 1 MG PO HS, TAB 08/24/18 Gabapentin* (Gabapentin*) 600 Mg Tablet, 600 MG PO TID, #90 TAB 08/24/18 Levetiracetam* (Keppra*) 500 Mg Tablet, 500 MG PO BID, TAB 08/24/18 Levothyroxine Sodium* (Synthroid*) 175 Mcg Tablet, 175 MCG PO BEFORE BREAKFAST, #30 TAB 08/24/18 Discontinued Reported Medications Magnesium Oxide* (Magnesium Oxide*) 400 Mg Tablet, 400 MG PO DAILY, TAB 08/24/18 Duloxetine Hcl* (Cymbalta*) 20 Mg Capsule.dr, 40 MG PO DAILY, CAP 08/24/18 Calcitriol* (Calcitriol*) 0.5 Mcg Capsule, 0.5 MCG PO DAILY, CAP 08/24/18 Discontinued Scripts Hydromorphone Hcl* (Hydromorphone Hcl*) 2 Mg Tablet, 2 MG PO Q4H PRN for PAIN for 7 Days, #30 TAB 0 Refills Prov:IRAM FRANCIS MD 08/27/18 Aspirin (Aspir-Flaca) 325 Mg Tablet., 325 MG PO BID for 84 Days Prov:BELEM DUMONT MD 08/26/18 Medications Current Medications Hydromorphone HCl (Dilaudid) 0.4 mg PACU PRN IV MILD PAIN 1-3 Last administered on 11/16/18 12:20; Admin Dose 0.4 MG; Start 11/16/18 at 11:00; Stop 11/16/18 at 19:00 Hydromorphone HCl (Dilaudid) 0.6 mg PACU PRN IV MOD PAIN 4-6 Last administered on 11/16/18 13:20; Admin Dose 0.6 MG; Start 11/16/18 at 11:00; Stop 11/16/18 at 20:00 Hydromorphone HCl (Dilaudid) 1 mg PACU PRN IV SEVERE PAIN 7-10; Start 11/16/18 at 11:00; Stop 11/16/18 at 20:00 Ondansetron HCl (Zofran Inj) 4 mg PACU ORDER PRN IV NAUSEA/VOMITING Last administered on 11/16/18 13:47; Admin Dose 4 MG; Start 11/16/18 at 11:00; Stop 11/16/18 at 20:00 Midazolam HCl (Versed) 1 mg PACU ORDER PRN IV .ANXIETY; Start 11/16/18 at 11:00; Stop 11/16/18 at 20:00 Lactated Ringer's 1,000 ml @ 80 mls/hr [id number] IV Last administered on 11/16/18at 14:24; Admin Dose 80 MLS/HR; Start 11/16/18 at 11:18 Oxycodone HCl (Roxicodone) 15 mg Q4H PRN PO .PAIN Last administered on 11/16/18at 15:53; Admin Dose 15 MG; Start 11/16/18 at 11:30 Oxycodone HCl (Roxicodone) 10 mg Q4H PRN PO .PAIN; Start 11/16/18 at 11:30 Oxycodone HCl (Roxicodone) 5 mg Q4H PRN PO .PAIN; Start 11/16/18 at 11:30 Ondansetron HCl (Zofran Inj) 4 mg Q4H PRN IV NAUSEA/VOMITING; Start 11/17/18 at 11:30 Clindamycin HCl/ Dextrose 50 ml @ 50 mls/hr Q8H IVPB ; Start 11/16/18 at 18:00; Stop 11/17/18 at 02:59 Celecoxib (Celebrex) 100 mg BID PO ; Start 11/17/18 at 12:00 Gabapentin (Neurontin) 300 mg QHS PO ; Start 11/16/18 at 21:00 Pantoprazole (Protonix Tab) 40 mg DAILY@06 PO ; Start 11/17/18 at 06:00 Docusate Sodium (Colace) 200 mg BID PO ; Start 11/17/18 at 09:00; Stop 11/19/18 at 21:01 Magnesium Hydroxide (Milk Of Mag) 30 ml HS PRN PO .CONSTIPATION; Start 11/16/18 at 11:30 Ketorolac Tromethamine (Toradol) 15 mg Q6H PRN IV .PAIN Last administered on 11/16/18at 14:23; Admin Dose 15 MG; Start 11/16/18 at 11:30; Stop 11/17/18 at 11:29 Naloxone HCl (Narcan) 0.2 mg Q2M PRN IV .RESP RATE; Start 11/16/18 at 11:30 IV Flush (NS 3 ml) 3 ml per protocol IV ; Start 11/16/18 at 11:30 Aspirin (Halfprin) 81 mg BID PO ; Start 11/17/18 at 09:00 Hydromorphone HCl (Dilaudid) 2 mg Q4H PRN IV SEVERE PAIN LEVEL 7-10 Last administered on 11/16/18at 16:48; Admin Dose 2 MG; Start 11/16/18 at 17:00 Calcitriol (Rocaltrol) 0.25 mcg DAILY PO ; Start 11/17/18 at 09:00; Status UNV Levetiracetam (Keppra) 500 mg BID PO ; Start 11/16/18 at 21:00; Status UNV Levothyroxine Sodium (Synthroid) 175 mcg BEFORE BREAKFAST PO ; Start 11/17/18 at 07:00; Status UNV Pantoprazole (Protonix Tab) 40 mg DAILY PO ; Start 11/17/18 at 09:00; Status UNV Ropinirole HCl (Requip) 1 mg HS PO ; Start 11/16/18 at 21:00; Status UNV Miscellaneous Information 1 each BID PO ; Start 11/16/18 at 21:00; Status UNV Miscellaneous Information 30 mg HS PRN PO INSOMNIA; Start 11/16/18 at 18:00; Status UNV Gabapentin (Neurontin) 1,200 mg TID PO ; Start 11/16/18 at 21:00; Status UNV Duloxetine HCl (Cymbalta) 30 mg DAILY PO ; Start 11/17/18 at 09:00; Status UNV Allergies: Coded Allergies: Penicillins (Verified Allergy, Unknown, 11/16/18) Sulfa (Sulfonamide Antibiotics) (Verified Allergy, Unknown, 11/16/18) cefaclor (Verified Allergy, Unknown, 11/16/18) cephalexin (Verified Allergy, Unknown, 11/16/18) metoclopramide (Verified Allergy, Unknown, 11/16/18) prochlorperazine (Verified Allergy, Unknown, 11/16/18) trimethobenzamide (Verified Allergy, Unknown, 11/16/18) Past Surgical History Past Surgical Hx: other (Status post left total knee replacement status post right total hip replacement) Family History Significant Family History: no pertinent family hx Social History Alcohol Use: none Smoking Status: Unknown if ever smoked Drug Use: none Exam/Review of Systems Exam Vitals Vital Signs Date Temp Pulse Resp B/P (MAP) Pulse Ox O2 O2 Flow FiO2 Time Delivery Rate 11/16/18 97.8 84 18 111/61 99 Nasal 16:45 (78) Cannula 11/16/18 8.0 12:09 Constitutional: alert, oriented Head: normocephalic, atraumatic Respiratory: clear to auscultation, normal air movement Cardiovascular: regular rate and rhythm, nl pulses Gastrointestinal: soft, nl liver, spleen, non-tender Extremities: normal pulses Medications Medication Current Medications Hydromorphone HCl (Dilaudid) 0.4 mg PACU PRN IV MILD PAIN 1-3 Last administered on 11/16/18at 12:20; Admin Dose 0.4 MG; Start 11/16/18 at 11:00; Stop 11/16/18 at 19:00 Hydromorphone HCl (Dilaudid) 0.6 mg PACU PRN IV MOD PAIN 4-6 Last administered on 11/16/18at 13:20; Admin Dose 0.6 MG; Start 11/16/18 at 11:00; Stop 11/16/18 at 20:00 Hydromorphone HCl (Dilaudid) 1 mg PACU PRN IV SEVERE PAIN 7-10; Start 11/16/18 at 11:00; Stop 11/16/18 at 20:00 Ondansetron HCl (Zofran Inj) 4 mg PACU ORDER PRN IV NAUSEA/VOMITING Last administered on 11/16/18at 13:47; Admin Dose 4 MG; Start 11/16/18 at 11:00; Stop 11/16/18 at 20:00 Midazolam HCl (Versed) 1 mg PACU ORDER PRN IV .ANXIETY; Start 11/16/18 at 11:00; Stop 11/16/18 at 20:00 Lactated Ringer's 1,000 ml @ 80 mls/hr [id number] IV Last administered on at 14:24; Admin Dose 80 MLS/HR; Start 11/16/18 at 11:18 Oxycodone HCl (Roxicodone) 15 mg Q4H PRN PO .PAIN Last administered on 11/16/18at 15:53; Admin Dose 15 MG; Start 11/16/18 at 11:30 Oxycodone HCl (Roxicodone) 10 mg Q4H PRN PO .PAIN; Start 11/16/18 at 11:30 Oxycodone HCl (Roxicodone) 5 mg Q4H PRN PO .PAIN; Start 11/16/18 at 11:30 Ondansetron HCl (Zofran Inj) 4 mg Q4H PRN IV NAUSEA/VOMITING; Start 11/17/18 at 11:30 Clindamycin HCl/ Dextrose 50 ml @ 50 mls/hr Q8H IVPB ; Start 11/16/18 at 18:00; Stop 11/17/18 at 02:59 Celecoxib (Celebrex) 100 mg BID PO ; Start 11/17/18 at 12:00 Gabapentin (Neurontin) 300 mg QHS PO ; Start 11/16/18 at 21:00 Pantoprazole (Protonix Tab) 40 mg DAILY@06 PO ; Start 11/17/18 at 06:00 Docusate Sodium (Colace) 200 mg BID PO ; Start 11/17/18 at 09:00; Stop 11/19/18 at 21:01 Magnesium Hydroxide (Milk Of Mag) 30 ml HS PRN PO .CONSTIPATION; Start 11/16/18 at 11:30 Ketorolac Tromethamine (Toradol) 15 mg Q6H PRN IV .PAIN Last administered on 11/16/18at 14:23; Admin Dose 15 MG; Start 11/16/18 at 11:30; Stop 11/17/18 at 11:29 Naloxone HCl (Narcan) 0.2 mg Q2M PRN IV .RESP RATE; Start 11/16/18 at 11:30 IV Flush (NS 3 ml) 3 ml per protocol IV ; Start 11/16/18 at 11:30 Aspirin (Halfprin) 81 mg BID PO ; Start 11/17/18 at 09:00 Hydromorphone HCl (Dilaudid) 2 mg Q4H PRN IV SEVERE PAIN LEVEL 7-10 Last administered on 11/16/18at 16:48; Admin Dose 2 MG; Start 11/16/18 at 17:00 Calcitriol (Rocaltrol) 0.25 mcg DAILY PO ; Start 11/17/18 at 09:00; Status UNV Levetiracetam (Keppra) 500 mg BID PO ; Start 11/16/18 at 21:00; Status UNV Levothyroxine Sodium (Synthroid) 175 mcg BEFORE BREAKFAST PO ; Start 11/17/18 at 07:00; Status UNV Pantoprazole (Protonix Tab) 40 mg DAILY PO ; Start 11/17/18 at 09:00; Status UNV Ropinirole HCl (Requip) 1 mg HS PO ; Start 11/16/18 at 21:00; Status UNV Miscellaneous Information 1 each BID PO ; Start 11/16/18 at 21:00; Status UNV Miscellaneous Information 30 mg HS PRN PO INSOMNIA; Start 11/16/18 at 18:00; Status UNV Gabapentin (Neurontin) 1,200 mg TID PO ; Start 11/16/18 at 21:00; Status UNV Duloxetine HCl (Cymbalta) 30 mg DAILY PO ; Start 11/17/18 at 09:00; Status UNV JONATHAN WALTON MD November 16, 2018 18:07
[2018-11-16] MEDS: CLINDAMYCIN 900 MG/D5W (PMX) 50 ML IVPB SCH (20:18)
[2018-11-16] MEDS: LEVETIRACETAM 500 MG TAB PO SCH (20:18)
[2018-11-16] MEDS: GABAPENTIN 300 MG CAP PO SCH (20:18)
[2018-11-16] MEDS: ROPINIROLE 1 MG TAB PO SCH (20:18)
[2018-11-16] MEDS: GABAPENTIN 400 MG CAP PO SCH (20:21)
[2018-11-16] MEDS ORDERED: GABAPENTIN 300 MG CAP PO SCH (21:00)
[2018-11-16] MEDS: HYDROmorphONE 0.2 MG/ML PCA IV SCH (21:51)
[2018-11-17 00:08] VITALS: BP 114/55; PULSE 72; RESP 18
[2018-11-17] MEDS: LACTATED RINGER'S 1,000 ML IV SCH ×2 (01:55→17:10)
[2018-11-17] MEDS: DIPHENHYDRAMINE 50 MG INJ IV PRN (02:42)
[2018-11-17] MEDS: HYDROmorphONE 0.2 MG/ML PCA IV SCH ×4 (02:51→19:50)
[2018-11-17] MEDS: CLINDAMYCIN 900 MG/D5W (PMX) 50 ML IVPB SCH (03:53)
[2018-11-17] MEDS: PANTOPRAZOLE (EC) 40 MG TAB PO SCH (05:42)
[2018-11-17] MEDS: LEVOTHYROXINE 175 MCG TAB PO SCH (06:11)
--- NOTE | 2018-11-17 07:04 | CONS ---
Assessment/Plan Assessment/Plan Assessment/Plan (Daily) Status post left hip replacement Pain out of control, chronic pain syndrome on MS Contin 30 mg twice daily and [place] 1 tablet twice daily History of hypothyroid On replacement therapy Rheumatoid arthritis Unspecified not on disease modifying antirheumatic drugs History of malignant breast cancer At this time we will lower her dose from MS Contin to 15 mg twice daily continue with IN HOME SALES REPRESENTATIVE Dilaudid Which are to p.o. tomorrow Low-dose sleeper Follow-up up in a.m. pain well controlled at this time on IN HOME SALES REPRESENTATIVE Dilaudid Consultation Date/Type/Reason Admit Date/Time November 16, 2018 at 11:30 Date/Time of Note DATE: 11/17/18 TIME: 07:01 Hx of Present Illness 63-year-old female well-known to me from prior admissions status post right. Who took a non-syncopal fall striking her left hip without fracture was seen by her primary care orthopedic surgeon required surgical intervention. Denied nausea vomiting dizziness diplopia disorientation loss of consciousness. Constitutional: no complaints, improved Eyes: no complaints; No pain, No discharge, No redness, No visual change, No other ENT: no complaints; No bleeding, No pain, No congestion, No discharge, No dysphagia, No sore throat, No other Respiratory: wheezing, other (History of asthma) Cardiovascular: no complaints Gastrointestinal: no complaints Genitourinary: no complaints Musculoskeletal: other (As per history of present illness) Endocrine: other (History of generalized seizure disorder) Lymphatic: no complaints Psychological: no complaints, nl mood/affect Immunologic: no complaints Past Medical History Medical History: cancer (History of bilateral breast cancer), GERD, hypothyroid, other (Seizure disorder chronic pain management syndrome, asthma, migraine headaches, hypothyroidism, peripheral neuropathy, gastrointestinal reflux disease) Home Meds Reported Medications Cyclobenzaprine Hcl* (Cyclobenzaprine Hcl*) 10 Mg Tablet, 20 MG PO Q8 PRN for MUSCLE SPASMS, #60 TAB 11/16/18 Oxycodone Hcl-Acetaminophen* (Endocet*) 10-325 Mg Tablet, 1 TAB PO Q4H PRN for PAIN, TAB 11/16/18 Pantoprazole* (Protonix*) 40 Mg Tablet.dr, 40 MG PO DAILY, TAB 11/16/18 Calcitriol* (Rocaltrol*) 0.25 Mcg Capsule, 0.25 MCG PO DAILY, CAP 11/16/18 Calcium Citrate/Vitamin D (Citracal-Vitamin D 200 MG-250) 1 Each Tablet, 1 EACH PO BID, TAB 11/16/18 Pregabalin* (Lyrica*) 75 Mg Capsule, 75 MG PO DAILY, CAP 08/24/18 Temazepam* (Restoril*) 30 Mg Capsule, 30 MG PO HS PRN for INSOMNIA, CAP 08/24/18 Morphine Sulfate* (Ms Contin*) 15 Mg Tablet.sa, 30 MG PO Q8 PRN for PAIN, TAB.SA 08/24/18 Ropinirole Hcl* (Requip*) 1 Mg Tablet, 1 MG PO HS, TAB 08/24/18 Gabapentin* (Gabapentin*) 600 Mg Tablet, 600 MG PO TID, #90 TAB 08/24/18 Levetiracetam* (Keppra*) 500 Mg Tablet, 500 MG PO BID, TAB 08/24/18 Levothyroxine Sodium* (Synthroid*) 175 Mcg Tablet, 175 MCG PO BEFORE BREAKFAST, #30 TAB 08/24/18 Discontinued Reported Medications Magnesium Oxide* (Magnesium Oxide*) 400 Mg Tablet, 400 MG PO DAILY, TAB 08/24/18 Duloxetine Hcl* (Cymbalta*) 20 Mg Capsule.dr, 40 MG PO DAILY, CAP 08/24/18 Calcitriol* (Calcitriol*) 0.5 Mcg Capsule, 0.5 MCG PO DAILY, CAP 08/24/18 Discontinued Scripts Hydromorphone Hcl* (Hydromorphone Hcl*) 2 Mg Tablet, 2 MG PO Q4H PRN for PAIN for 7 Days, #30 TAB 0 Refills Prov:IRAM FRANCIS MD 08/27/18 Aspirin (Aspir-Flaca) 325 Mg Tablet., 325 MG PO BID for 84 Days Prov:BELEM DUMONT MD 08/26/18 Medications Current Medications Lactated Ringer's 1,000 ml @ 80 mls/hr [id number] IV Last administered on 11/17/18at 01:55; Admin Dose 80 MLS/HR; Start 11/16/18 at 11:18 Ondansetron HCl (Zofran Inj) 4 mg Q4H PRN IV NAUSEA/VOMITING; Start 11/17/18 at 11:30 Celecoxib (Celebrex) 100 mg BID PO ; Start 11/17/18 at 12:00 Gabapentin (Neurontin) 300 mg QHS PO Last administered on 11/16/18at 20:18; Admin Dose 300 MG; Start 11/16/18 at 21:00 Pantoprazole (Protonix Tab) 40 mg DAILY@06 PO Last administered on 11/17/18at 05:42; Admin Dose 40 MG; Start 11/17/18 at 06:00 Docusate Sodium (Colace) 200 mg BID PO ; Start 11/17/18 at 09:00; Stop 11/19/18 at 21:01 Magnesium Hydroxide (Milk Of Mag) 30 ml HS PRN PO .CONSTIPATION; Start 11/16/18 at 11:30 Naloxone HCl (Narcan) 0.2 mg Q2M PRN IV .RESP RATE; Start 11/16/18 at 11:30 IV Flush (NS 3 ml) 3 ml per protocol IV ; Start 11/16/18 at 11:30 Aspirin (Halfprin) 81 mg BID PO ; Start 11/17/18 at 09:00 Calcitriol (Rocaltrol) 0.25 mcg DAILY PO ; Start 11/17/18 at 09:00 Levetiracetam (Keppra) 500 mg BID PO Last administered on 11/16/18at 20:18; Admin Dose 500 MG; Start 11/16/18 at 21:00 Levothyroxine Sodium (Synthroid) 175 mcg BEFORE BREAKFAST PO Last administered on 11/17/18at 06:11; Admin Dose 175 MCG; Start 11/17/18 at 07:00 Ropinirole HCl (Requip) 1 mg HS PO Last administered on 11/16/18at 20:18; Admin Dose 1 MG; Start 11/16/18 at 21:00 Miscellaneous Information 1 each BID PO ; Start 11/16/18 at 21:00; Status UNV Zolpidem Tartrate (Ambien) 5 mg HS MAY REPEAT X 1 PRN PO INSOMNIA; Start 11/16/18 at 18:00 Gabapentin (Neurontin) 1,200 mg TID PO Last administered on 11/16/18at 20:21; Admin Dose 1,200 MG; Start 11/16/18 at 21:00 Duloxetine HCl (Cymbalta) 30 mg DAILY PO ; Start 11/17/18 at 09:00 Hydromorphone HCl (Dilaudid IN HOME SALES REPRESENTATIVE) 0.5 MG/HR CONTINUOUS R... Q4PCA IV Last administered on 11/17/18at 02:51; Admin Dose 6 MG; Start 11/16/18 at 21:30 Diphenhydramine HCl (Benadryl) 25 mg Q6H PRN IV itching Last administered on 11/17/18at 02:42; Admin Dose 25 MG; Start 11/17/18 at 03:00 Allergies: Coded Allergies: Penicillins (Verified Allergy, Unknown, 11/16/18) Sulfa (Sulfonamide Antibiotics) (Verified Allergy, Unknown, 11/16/18) cefaclor (Verified Allergy, Unknown, 11/16/18) cephalexin (Verified Allergy, Unknown, 11/16/18) metoclopramide (Verified Allergy, Unknown, 11/16/18) prochlorperazine (Verified Allergy, Unknown, 11/16/18) trimethobenzamide (Verified Allergy, Unknown, 11/16/18) Past Surgical History Past Surgical Hx: other (Status post left total knee replacement status post right total hip replacement) Social History Alcohol Use: none Smoking Status: Unknown if ever smoked Drug Use: none Exam/Review of Systems Exam Vitals Vital Signs Date Temp Pulse Resp B/P (MAP) Pulse Ox O2 O2 Flow FiO2 Time Delivery Rate 11/17/18 20 05:47 11/17/18 98.6 72 114/55 99 00:08 (74) 11/16/18 Nasal 18:45 Cannula 11/16/18 8.0 12:09 Intake and Output 11/16/18 11/16/18 11/17/18 1515:00 23:00 07:00 IntakeIntake Total 1305 ml 490 ml 2000 ml OutputOutput Total 860 ml 900 ml 1430 ml BalanceBalance 445 ml -410 ml 570 ml Constitutional: alert, oriented, well developed Psych: no complaints, nl mood/affect Head: normocephalic, atraumatic Eyes: nl conjunctiva, EOMI, nl lids, nl sclera, PERRL ENMT: nl external ears & nose, nl lips & teeth, nl nasal mucosa & septum Neck: supple, non-tender Respiratory: clear to auscultation, normal air movement Cardiovascular: regular rate and rhythm, nl pulses Gastrointestinal: soft, nl liver, spleen, non-tender; No ascites, No bowel sounds, No distended, No firm, No hepatomegaly, No mass, No rebound or guarding, No splenomegaly, No surgical scars, No tender, No other Lymph: nl lymph nodes Results Result Diagram: 11/17/18 0418 11/17/18 0418 Results 24hrs Laboratory Tests Test 11/17/18 04:18 11/17/18 06:47 White Blood Count 6.5 Red Blood Count 3.11 L Hemoglobin 7.8 L Hematocrit 24.8 L Mean Corpuscular Volume 79.7 L Mean Corpuscular Hemoglobin 25.1 L Mean Corpuscular Hemoglobin Concent 31.5 L Red Cell Distribution Width 15.9 H Platelet Count 72 #L Mean Platelet Volume 11.1 H Immature Granulocytes % 0.500 H Neutrophils % 68.3 Lymphocytes % 19.7 Monocytes % 11.1 H Eosinophils % 0.2 Basophils % 0.2 Nucleated Red Blood Cells % 0.0 Immature Granulocytes # 0.030 Neutrophils # 4.5 Lymphocytes # 1.3 Monocytes # 0.7 Eosinophils # 0.0 Basophils # 0.0 Nucleated Red Blood Cells # 0.0 Sodium Level 130 L Potassium Level 3.4 L Chloride Level 94 L Carbon Dioxide Level 28 Anion Gap 8 Blood Urea Nitrogen 16 Creatinine 0.41 L Est Glomerular Filtrat Rate mL/min > 60 Glucose Level 97 Calcium Level 6.8 L Iron Level 41 Total Iron Binding Capacity 262 Percent Iron Saturation 16 L Ferritin 12.0 Lab Scanned Report REFERENCE LAB Medications Medication Current Medications Lactated Ringer's 1,000 ml @ 80 mls/hr [id number] IV Last administered on 11/17/18at 01:55; Admin Dose 80 MLS/HR; Start 11/16/18 at 11:18 Ondansetron HCl (Zofran Inj) 4 mg Q4H PRN IV NAUSEA/VOMITING; Start 11/17/18 at 11:30 Celecoxib (Celebrex) 100 mg BID PO ; Start 11/17/18 at 12:00 Gabapentin (Neurontin) 300 mg QHS PO Last administered on 11/16/18at 20:18; Admin Dose 300 MG; Start 11/16/18 at 21:00 Pantoprazole (Protonix Tab) 40 mg DAILY@06 PO Last administered on 11/17/18at 05:42; Admin Dose 40 MG; Start 11/17/18 at 06:00 Docusate Sodium (Colace) 200 mg BID PO ; Start 11/17/18 at 09:00; Stop 11/19/18 at 21:01 Magnesium Hydroxide (Milk Of Mag) 30 ml HS PRN PO .CONSTIPATION; Start 11/16/18 at 11:30 Naloxone HCl (Narcan) 0.2 mg Q2M PRN IV .RESP RATE; Start 11/16/18 at 11:30 IV Flush (NS 3 ml) 3 ml per protocol IV ; Start 11/16/18 at 11:30 Aspirin (Halfprin) 81 mg BID PO ; Start 11/17/18 at 09:00 Calcitriol (Rocaltrol) 0.25 mcg DAILY PO ; Start 11/17/18 at 09:00 Levetiracetam (Keppra) 500 mg BID PO Last administered on 11/16/18 20:18; Admin Dose 500 MG; Start 11/16/18 at 21:00 Levothyroxine Sodium (Synthroid) 175 mcg BEFORE BREAKFAST PO Last administered on 11/17/18at 06:11; Admin Dose 175 MCG; Start 11/17/18 at 07:00 Ropinirole HCl (Requip) 1 mg HS PO Last administered on 11/16/18 20:18; Admin Dose 1 MG; Start 11/16/18 at 21:00 Miscellaneous Information 1 each BID PO ; Start 11/16/18 at 21:00; Status UNV Zolpidem Tartrate (Ambien) 5 mg HS MAY REPEAT X 1 PRN PO INSOMNIA; Start 11/16/18 at 18:00 Gabapentin (Neurontin) 1,200 mg TID PO Last administered on 11/16/18 20:21; Admin Dose 1,200 MG; Start 11/16/18 at 21:00 Duloxetine HCl (Cymbalta) 30 mg DAILY PO ; Start 11/17/18 at 09:00 Hydromorphone HCl (Dilaudid IN HOME SALES REPRESENTATIVE) 0.5 MG/HR CONTINUOUS R... Q4PCA IV Last administered on 11/17/18at 02:51; Admin Dose 6 MG; Start 11/16/18 at 21:30 Diphenhydramine HCl (Benadryl) 25 mg Q6H PRN IV itching Last administered on 11/17/18at 02:42; Admin Dose 25 MG; Start 11/17/18 at 03:00 DUTCH IZQUIERDO November 17, 2018 07:04
[2018-11-17 08:02] VITALS: BP 97/54; PULSE 80; RESP 18
[2018-11-17] MEDS: morphine (ER) 15 MG TAB PO SCH ×2 (08:57→21:05)
[2018-11-17] MEDS ORDERED: SOD FERRIC GLUC COMPLX 125 MG in SOD CHLORIDE 0.9% 100 ML IVPB ONE (09:00)
[2018-11-17] MEDS ORDERED: PANTOPRAZOLE (EC) 40 MG TAB PO SCH (09:00)
[2018-11-17] MEDS: ASPIRIN (EC) 81 MG TAB PO SCH ×2 (09:01→21:04)
[2018-11-17] MEDS: DOCUSATE SODIUM 100 MG CAP PO SCH ×2 (09:01→21:03)
[2018-11-17] MEDS: DULOXETINE 30 MG CAP DR PO SCH (09:01)
[2018-11-17] MEDS: GABAPENTIN 400 MG CAP PO SCH ×3 (09:01→21:03)
[2018-11-17] MEDS: LEVETIRACETAM 500 MG TAB PO SCH ×2 (09:01→21:04)
[2018-11-17] MEDS: CALCITRIOL 0.25 MCG CAP PO SCH (09:01)
[2018-11-17] MEDS: CELECOXIB 100 MG CAP PO SCH ×2 (11:46→21:03)
[2018-11-17] MEDS: CALCIUM/VITAMIN D (250/125) TAB PO SCH ×2 (11:47→21:04)
[2018-11-17] MEDS ORDERED: POTASSIUM CHLORIDE (SR) 20 MEQ TAB PO STA (13:53)
--- NOTE | 2018-11-17 14:02 | CONS ---
Assessment/Plan Assessment/Plan Problems: (1) Status post left hip replacement Onset Date: ~ 11/16/2018 Status: Acute Comment: Resting very nicely after surgery without evidence of complications. Possible discharge in 48 hours (2) Anemia Status: Chronic Comment: She has anemia both from postoperative blood loss, and from a modest iron deficiency. We will go ahead and give her iron as opposed to blood letter body replete itself Qualifiers: Anemia type: iron deficiency Iron deficiency anemia type: chronic blood loss Qualified Codes: D50.0 - Iron deficiency anemia secondary to blood loss (chronic) (3) Postprocedural hypoparathyroidism Status: Chronic Comment: Continue with calcium and calcitriol replacement (4) Postprocedural hypothyroidism Status: Chronic Comment: Continue with levothyroxine replacement therapy (5) Chronic pain syndrome Status: Chronic Comment: Adequate control and the patient is being seen by Dr. Carroll (6) Enterococcus UTI Status: Acute Comment: 3 days of levofloxacin (7) Seizure disorder Status: Chronic Comment: Stable at this time Consultation Date/Type/Reason Admit Date/Time November 16, 2018 at 11:30 Initial Consult Date 11/16/18 Type of Consult Internal medicine Reason for Consultation Operative assistance after joint replacement surgery; enterococcus UTI; iron deficiency anemia; postop anemia; Requesting Provider: LEENA NICHOLS Date/Time of Note DATE: 11/17/18 TIME: 14:00 24 HR Interval Summary Free Text/Dictation Patient reports that she is doing better today than yesterday. Constitutional: no complaints (No fevers chills or sweats) Detailed Summary Respiratory: no complaints Cardiovascular: no complaints Gastrointestinal: no complaints Genitourinary: no complaints Exam/Review of Systems Exam Vitals Vital Signs Date Temp Pulse Resp B/P (MAP) Pulse Ox O2 O2 Flow FiO2 Time Delivery Rate 11/17/18 18 09:00 11/17/18 98.6 80 97/54 (68) 95 Nasal 08:02 Cannula 11/16/18 8.0 12:09 Intake and Output 11/16/18 11/16/18 11/17/18 1515:00 23:00 07:00 IntakeIntake Total 1305 ml 490 ml 2000 ml OutputOutput Total 860 ml 900 ml 1430 ml BalanceBalance 445 ml -410 ml 570 ml Constitutional: alert, oriented Respiratory: clear to auscultation, normal air movement Cardiovascular: regular rate and rhythm, nl pulses Gastrointestinal: soft, nl liver, spleen, non-tender Results Result Diagram: 11/17/188 11/17/18417 Results 24hrs Laboratory Tests Test 11/17/18 04:18 11/17/18 06:47 White Blood Count 6.5 Red Blood Count 3.11 L Hemoglobin 7.8 L Hematocrit 24.8 L Mean Corpuscular Volume 79.7 L Mean Corpuscular Hemoglobin 25.1 L Mean Corpuscular Hemoglobin Concent 31.5 L Red Cell Distribution Width 15.9 H Platelet Count 72 #L Mean Platelet Volume 11.1 H Immature Granulocytes % 0.500 H Neutrophils % 68.3 Lymphocytes % 19.7 Monocytes % 11.1 H Eosinophils % 0.2 Basophils % 0.2 Nucleated Red Blood Cells % 0.0 Immature Granulocytes # 0.030 Neutrophils # 4.5 Lymphocytes # 1.3 Monocytes # 0.7 Eosinophils # 0.0 Basophils # 0.0 Nucleated Red Blood Cells # 0.0 Sodium Level 130 L Potassium Level 3.4 L Chloride Level 94 L Carbon Dioxide Level 28 Anion Gap 8 Blood Urea Nitrogen 16 Creatinine 0.41 L Est Glomerular Filtrat Rate mL/min > 60 Glucose Level 97 Calcium Level 6.8 L Iron Level 41 Total Iron Binding Capacity 262 Percent Iron Saturation 16 L Ferritin 12.0 Lab Scanned Report REFERENCE LAB Medications Medication Current Medications Lactated Ringer's 1,000 ml @ 80 mls/hr [id number] IV Last administered on 11/17/18at 01:55; Admin Dose 80 MLS/HR; Start 11/16/18 at 11:18 Ondansetron HCl (Zofran Inj) 4 mg Q4H PRN IV NAUSEA/VOMITING; Start 11/17/18 at 11:30 Celecoxib (Celebrex) 100 mg BID PO Last administered on 11/17/18at 11:46; Admin Dose 100 MG; Start 11/17/18 at 12:00 Gabapentin (Neurontin) 300 mg QHS PO Last administered on 11/16/18at 20:18; Admin Dose 300 MG; Start 11/16/18 at 21:00 Pantoprazole (Protonix Tab) 40 mg DAILY@06 PO Last administered on 11/17/18at 05:42; Admin Dose 40 MG; Start 11/17/18 at 06:00 Docusate Sodium (Colace) 200 mg BID PO Last administered on 11/17/18 09:01; Admin Dose 200 MG; Start 11/17/18 at 09:00; Stop 11/19/18 at 21:01 Magnesium Hydroxide (Milk Of Mag) 30 ml HS PRN PO .CONSTIPATION; Start 11/16/18 at 11:30 Naloxone HCl (Narcan) 0.2 mg Q2M PRN IV .RESP RATE; Start 11/16/18 at 11:30 IV Flush (NS 3 ml) 3 ml per protocol IV ; Start 11/16/18 at 11:30 Aspirin (Halfprin) 81 mg BID PO Last administered on 11/17/18 09:01; Admin Dose 81 MG; Start 11/17/18 at 09:00 Calcitriol (Rocaltrol) 0.25 mcg DAILY PO Last administered on 11/17/18 09:01; Admin Dose 0.25 MCG; Start 11/17/18 at 09:00 Levetiracetam (Keppra) 500 mg BID PO Last administered on 11/17/18 09:01; Admin Dose 500 MG; Start 11/16/18 at 21:00 Levothyroxine Sodium (Synthroid) 175 mcg BEFORE BREAKFAST PO Last administered on 11/17/18 06:11; Admin Dose 175 MCG; Start 11/17/18 at 07:00 Ropinirole HCl (Requip) 1 mg HS PO Last administered on 11/16/18 20:18; Admin Dose 1 MG; Start 11/16/18 at 21:00 Calcium/Vitamin D (Oyster Shell/ Vit-D (250/125)) 1 tab BID PO Last administe red on 11/17/18 11:47; Admin Dose 1 TAB; Start 11/17/18 at 09:00 Zolpidem Tartrate (Ambien) 5 mg HS MAY REPEAT X 1 PRN PO INSOMNIA; Start 11/16/18 at 18:00 Gabapentin (Neurontin) 1,200 mg TID PO Last administered on 11/17/18 12:49; Admin Dose 1,200 MG; Start 11/16/18 at 21:00 Duloxetine HCl (Cymbalta) 30 mg DAILY PO Last administered on 11/17/18 09:01; Admin Dose 30 MG; Start 11/17/18 at 09:00 Hydromorphone HCl (Dilaudid MARKETING DEVELOPER) 0.5 MG/HR CONTINUOUS R... Q4PCA IV Last administered on 11/17/18at 13:55; Admin Dose 6 MG; Start 11/16/18 at 21:30 Diphenhydramine HCl (Benadryl) 25 mg Q6H PRN IV itching Last administered on 11/17/18at 02:42; Admin Dose 25 MG; Start 11/17/18 at 03:00 Morphine Sulfate (Ms Contin (Er)) 15 mg BID PO Last administered on 11/17/18at 08:57; Admin Dose 15 MG; Start 11/17/18 at 09:00 Trazodone HCl (Desyrel) 25 mg HS PRN PO INSOMNIA; Start 11/17/18 at 07:30 Ferric Sodium Gluconate Complex 125 mg/Sodium Chloride 100 ml @ 100 mls/hr DAILY@1300 IVPB ; Start 11/17/18 at 13:00; Stop 11/19/18 at 13:59 Levofloxacin (Levaquin) 500 mg DAILY@06 PO ; Start 11/18/18 at 06:00; Stop 11/21/18 at 05:59 JONATHAN WALTON MD November 17, 2018 14:02
[2018-11-17] MEDS: SOD FERRIC GLUC COMPLX 125 MG in SOD CHLORIDE 0.9% 100 ML IVPB SCH (14:12)
[2018-11-17] MEDS: ONDANSETRON 4 MG INJ IV PRN ×2 (14:56→18:36)
[2018-11-17 20:28] VITALS: BP 100/54; PULSE 73; RESP 18
[2018-11-17] MEDS: ROPINIROLE 1 MG TAB PO SCH (21:02)
[2018-11-17] MEDS: GABAPENTIN 300 MG CAP PO SCH (21:04)
[2018-11-18 02:00] VITALS: BP 110/56; PULSE 70; RESP 18
[2018-11-18] MEDS: HYDROmorphONE 0.2 MG/ML PCA IV SCH ×4 (02:26→19:23)
[2018-11-18] MEDS: traZODone 50 MG TAB PO PRN ×2 (02:30→23:40)
[2018-11-18] MEDS: LACTATED RINGER'S 1,000 ML IV SCH ×2 (04:40→17:13)
[2018-11-18] MEDS: PANTOPRAZOLE (EC) 40 MG TAB PO SCH (05:07)
[2018-11-18] MEDS: LEVOFLOXACIN 500 MG TAB PO SCH ×2 (05:07→17:49)
[2018-11-18] MEDS ORDERED: LEVOFLOXACIN 500 MG TAB PO SCH (06:00)
[2018-11-18] MEDS: LEVOTHYROXINE 175 MCG TAB PO SCH (06:30)
[2018-11-18 07:44] VITALS: PULSE 69; RESP 15
[2018-11-18 08:00] VITALS: BP 87/49; PULSE 77; RESP 20
[2018-11-18] MEDS: morphine (ER) 15 MG TAB PO SCH ×2 (08:39→20:43)
[2018-11-18] MEDS: LEVETIRACETAM 500 MG TAB PO SCH ×2 (08:40→20:44)
[2018-11-18] MEDS: CELECOXIB 100 MG CAP PO SCH ×2 (08:40→20:45)
[2018-11-18] MEDS: DULOXETINE 30 MG CAP DR PO SCH (08:40)
[2018-11-18] MEDS: CALCIUM/VITAMIN D (250/125) TAB PO SCH ×2 (08:40→20:43)
[2018-11-18] MEDS: ASPIRIN (EC) 81 MG TAB PO SCH ×2 (08:40→20:45)
[2018-11-18] MEDS: CALCITRIOL 0.25 MCG CAP PO SCH (08:40)
[2018-11-18] MEDS: GABAPENTIN 400 MG CAP PO SCH ×3 (08:40→20:44)
[2018-11-18] MEDS: DOCUSATE SODIUM 100 MG CAP PO SCH ×2 (08:40→21:00)
[2018-11-18] MEDS: DIPHENHYDRAMINE 50 MG INJ IV PRN ×2 (10:35→17:13)
[2018-11-18] MEDS: ONDANSETRON 4 MG INJ IV PRN (12:30)
[2018-11-18] MEDS: SOD FERRIC GLUC COMPLX 125 MG in SOD CHLORIDE 0.9% 100 ML IVPB SCH (12:30)
[2018-11-18 14:07] VITALS: BP 99/51; PULSE 79; RESP 16
--- NOTE | 2018-11-18 18:24 | CONS ---
Assessment/Plan Assessment/Plan Hospital Course (Demo Recall) s/p L hip replacement -pain control -PT as tolerated -management per surgery Hypothyroidism -continue levothyroxine 175mcg po daily Seizure disorder -continue Keppra Hypoparathyroidism -continue calcitriol and vitamin D -repeat CMP in AM to assess calcium level with albumin -based on repeat level, will consider adjusting calcium dosage UTI -continue levofloxacin, total 3 days of treatment Iron deficiency anemia -ferritin of 12 -continue iron supplement -check CBC in AM Hyponatremia -repeat CMP in AM Consultation Date/Type/Reason Admit Date/Time November 16, 2018 at 11:30 Initial Consult Date 11/16/18 Requesting Provider: LEENA NICHOLS Date/Time of Note DATE: 11/18/18 TIME: 18:17 24 HR Interval Summary Free Text/Dictation Patient seen and examined at bedside. She had PT this morning and feels well. Tolerating diet well and has regular bowel movement. Exam/Review of Systems Exam Vitals Vital Signs Date Temp Pulse Resp B/P (MAP) Pulse Ox O2 O2 Flow FiO2 Time Delivery Rate 11/18/18 16 17:00 11/18/18 98.2 79 99/51 (67) 99 Room Air 14:07 11/16/18 8.0 12:09 Intake and Output 11/17/18 11/17/18 11/18/18 1515:00 23:00 07:00 IntakeIntake Total 940 ml 1090 ml 200 ml OutputOutput Total 1440 ml 2555 ml BalanceBalance 940 ml -350 ml -2355 ml Exam General: Comfortable in appearance, not in acute distress. Skin appropriate for ethnicity Eye: Extraocular movements are intact, Normal conjunctiva. HENT: Normocephalic, atraumatic. Respiratory: Respirations are non-labored, Breath sounds are equal, Symmetrical chest wall expansion. Cardiovascular: S1, S2. No murmur. No LE edema Gastrointestinal: Soft, Non-tender, Non-distended, Normal bowel sounds. Integumentary: Warm to touch. Neurologic: Alert, Oriented. Cognition and Speech: Speech clear and coherent, Functional cognition intact. Psychiatric: Cooperative, Appropriate mood & affect. Results Result Diagram: 11/18/18 0446 11/18/18 0445 Results 24hrs Laboratory Tests Test 11/18/18 04:45 11/18/18 04:46 Sodium Level 129 L Potassium Level 3.9 Chloride Level 92 L Carbon Dioxide Level 32 H Anion Gap 5 Blood Urea Nitrogen 10 Creatinine 0.49 Est Glomerular Filtrat Rate mL/min > 60 Glucose Level 109 Calcium Level 7.2 L White Blood Count 4.0 #L Red Blood Count 3.36 L Hemoglobin 8.4 L Hematocrit 26.4 L Mean Corpuscular Volume 78.6 L Mean Corpuscular Hemoglobin 25.0 L Mean Corpuscular Hemoglobin Concent 31.8 L Red Cell Distribution Width 15.8 H Platelet Count 123 #L Mean Platelet Volume 11.1 H Immature Granulocytes % 0.300 Neutrophils % 63.5 Lymphocytes % 19.4 Monocytes % 15.7 H Eosinophils % 0.8 Basophils % 0.3 Nucleated Red Blood Cells % 0.0 Immature Granulocytes # 0.010 Neutrophils # 2.5 Lymphocytes # 0.8 Monocytes # 0.6 Eosinophils # 0.0 Basophils # 0.0 Nucleated Red Blood Cells # 0.0 Medications Medication Current Medications Lactated Ringer's 1,000 ml @ 80 mls/hr [id number] IV Last administered on 11/18/18at 17:13; Admin Dose 80 MLS/HR; Start 11/16/18 at 11:18 Ondansetron HCl (Zofran Inj) 4 mg Q4H PRN IV NAUSEA/VOMITING Last administered on 11/18/18 12:30; Admin Dose 4 MG; Start 11/17/18 at 11:30 Celecoxib (Celebrex) 100 mg BID PO Last administered on 11/18/18 08:40; Admin Dose 100 MG; Start 11/17/18 at 12:00 Gabapentin (Neurontin) 300 mg QHS PO Last administered on 11/17/18at 21:04; Admin Dose 300 MG; Start 11/16/18 at 21:00 Pantoprazole (Protonix Tab) 40 mg DAILY@06 PO Last administered on 11/18/18 05:07; Admin Dose 40 MG; Start 11/17/18 at 06:00 Docusate Sodium (Colace) 200 mg BID PO Last administered on 11/18/18 08:40; Admin Dose 200 MG; Start 11/17/18 at 09:00; Stop 11/19/18 at 21:01 Magnesium Hydroxide (Milk Of Mag) 30 ml HS PRN PO .CONSTIPATION; Start 11/16/18 at 11:30 Naloxone HCl (Narcan) 0.2 mg Q2M PRN IV .RESP RATE; Start 11/16/18 at 11:30 IV Flush (NS 3 ml) 3 ml per protocol IV ; Start 11/16/18 at 11:30 Aspirin (Halfprin) 81 mg BID PO Last administered on 11/18/18 08:40; Admin Dose 81 MG; Start 11/17/18 at 09:00 Calcitriol (Rocaltrol) 0.25 mcg DAILY PO Last administered on 11/18/18 08:40; Admin Dose 0.25 MCG; Start 11/17/18 at 09:00 Levetiracetam (Keppra) 500 mg BID PO Last administered on 11/18/18 08:40; Adm in Dose 500 MG; Start 11/16/18 at 21:00 Levothyroxine Sodium (Synthroid) 175 mcg BEFORE BREAKFAST PO Last administered on 11/18/18 06:30; Admin Dose 175 MCG; Start 11/17/18 at 07:00 Ropinirole HCl (Requip) 1 mg HS PO Last administered on 11/17/18 21:02; Admin Dose 1 MG; Start 11/16/18 at 21:00 Calcium/Vitamin D (Oyster Shell/ Vit-D (250/125)) 1 tab BID PO Last administered on 11/18/18 08:40; Admin Dose 1 TAB; Start 11/17/18 at 09:00 Zolpidem Tartrate (Ambien) 5 mg HS MAY REPEAT X 1 PRN PO INSOMNIA; Start 11/16/18 at 18:00 Gabapentin (Neurontin) 1,200 mg TID PO Last administered on 11/18/18 12:30; Admin Dose 1,200 MG; Start 11/16/18 at 21:00 Duloxetine HCl (Cymbalta) 30 mg DAILY PO Last administered on 11/18/18 08:40; Admin Dose 30 MG; Start 11/17/18 at 09:00 Hydromorphone HCl (Dilaudid CHEMICAL PROJECT ENGINEER) 0.5 MG/HR CONTINUOUS R... Q4PCA IV Last administered on 11/18/18 13:32; Admin Dose 6 MG; Start 11/16/18 at 21:30 Diphenhydramine HCl (Benadryl) 25 mg Q6H PRN IV itching Last administered on 11/18/18 17:13; Admin Dose 25 MG; Start 11/17/18 at 03:00 Morphine Sulfate (Ms Contin (Er)) 15 mg BID PO Last administered on 11/18/18 08:39; Admin Dose 15 MG; Start 11/17/18 at 09:00 Trazodone HCl (Desyrel) 25 mg HS PRN PO INSOMNIA Last administered on 11/18/18 02:30; Admin Dose 25 MG; Start 11/17/18 at 07:30 Ferric Sodium Gluconate Complex 125 mg/Sodium Chloride 100 ml @ 100 mls/hr DAILY@1300 IVPB Last administered on 11/18/18 12:30; Admin Dose 100 MLS/HR; Start 11/17/18 at 13:00; Stop 11/19/18 at 13:59 Levofloxacin (Levaquin) 500 mg PC DINNER PO Last administered on 11/18/18 17 :49; Admin Dose 500 MG; Start 11/18/18 at 06:00 GURMEET ERIC MD November 18, 2018 18:24
[2018-11-18 19:35] VITALS: BP 88/47; PULSE 82; RESP 20
[2018-11-18] MEDS: ROPINIROLE 1 MG TAB PO SCH (20:44)
[2018-11-18] MEDS: GABAPENTIN 300 MG CAP PO SCH (20:45)
[2018-11-19] MEDS: HYDROmorphONE 0.2 MG/ML PCA IV SCH ×4 (00:58→19:48)
[2018-11-19] MEDS: LACTATED RINGER'S 1,000 ML IV SCH (01:48)
[2018-11-19 02:30] VITALS: BP 84/45; PULSE 87; RESP 20
[2018-11-19] MEDS: LEVOTHYROXINE 175 MCG TAB PO SCH (06:04)
[2018-11-19] MEDS: PANTOPRAZOLE (EC) 40 MG TAB PO SCH ×2 (06:04→17:43)
[2018-11-19 08:14] VITALS: BP 91/48; PULSE 73; RESP 18
[2018-11-19] MEDS: DOCUSATE SODIUM 100 MG CAP PO SCH ×2 (09:00→21:00)
[2018-11-19] MEDS: CELECOXIB 100 MG CAP PO SCH ×2 (09:09→22:39)
[2018-11-19] MEDS: CALCITRIOL 0.25 MCG CAP PO SCH (09:10)
[2018-11-19] MEDS: CALCIUM/VITAMIN D (250/125) TAB PO SCH ×2 (09:10→22:39)
[2018-11-19] MEDS: ASPIRIN (EC) 81 MG TAB PO SCH ×2 (09:10→22:38)
[2018-11-19] MEDS: LEVETIRACETAM 500 MG TAB PO SCH ×2 (09:11→22:39)
[2018-11-19] MEDS: morphine (ER) 15 MG TAB PO SCH ×2 (09:11→22:42)
[2018-11-19] MEDS: GABAPENTIN 400 MG CAP PO SCH ×3 (09:11→22:51)
[2018-11-19] MEDS: DULOXETINE 30 MG CAP DR PO SCH (09:12)
[2018-11-19] MEDS: ONDANSETRON 4 MG INJ IV PRN ×2 (10:26→14:37)
[2018-11-19] MEDS: SOD FERRIC GLUC COMPLX 125 MG in SOD CHLORIDE 0.9% 100 ML IVPB SCH (12:41)
[2018-11-19] MEDS ORDERED: GUAIFENESIN/DM (SR) TAB PO PRN (13:00)
--- NOTE | 2018-11-19 16:33 | CONS ---
Assessment/Plan Assessment/Plan Hospital Course (Demo Recall) s/p L hip replacement -pain control -PT as tolerated -management per surgery Hypothyroidism -continue levothyroxine 175mcg po daily Seizure disorder -continue Keppra Hypoparathyroidism -continue calcitriol and vitamin D -calcium corrected for low albumin is 8.4 UTI -continue levofloxacin, total 3 days of treatment Iron deficiency anemia -ferritin of 12 -s/p IV iron supplement -H/H stable Hyponatremia -resolved on today's chemistry Consultation Date/Type/Reason Admit Date/Time November 16, 2018 at 11:30 Initial Consult Date 11/16/18 Requesting Provider: LEENA NICHOLS Date/Time of Note DATE: 11/19/18 TIME: 16:30 24 HR Interval Summary Free Text/Dictation Patient seen and examined with at bedside. She c/o acid reflux. Exam/Review of Systems Exam Vitals Vital Signs Date Temp Pulse Resp B/P (MAP) Pulse Ox O2 O2 Flow FiO2 Time Delivery Rate 11/19/18 Nasal 2.0 10:06 Cannula 11/19/18 98.2 73 18 91/48 (62) 99 08:14 Intake and Output 11/18/18 11/18/18 11/19/18 1414:59 22:59 06:59 IntakeIntake Total 620 ml 1600 ml 1350 ml OutputOutput Total 1505 ml 1900 ml BalanceBalance 620 ml 95 ml -550 ml Exam General: Comfortable in appearance, not in acute distress. Skin appropriate for ethnicity Eye: Extraocular movements are intact, Normal conjunctiva. HENT: Normocephalic, atraumatic. Respiratory: Respirations are non-labored, Breath sounds are equal, Symmetrical chest wall expansion. Cardiovascular: S1, S2. No murmur. No LE edema Gastrointestinal: Soft, Non-tender, Non-distended, Normal bowel sounds. Integumentary: Warm to touch. Neurologic: Alert, Oriented. Cognition and Speech: Speech clear and coherent, Functional cognition intact. Psychiatric: Cooperative, Appropriate mood & affect. Results Result Diagram: 11/19/189 11/19/189 Results 24hrs Laboratory Tests Test 11/19/18 04:29 White Blood Count 3.7 L Red Blood Count 3.35 L Hemoglobin 8.4 L Hematocrit 27.5 L Mean Corpuscular Volume 82.1 Mean Corpuscular Hemoglobin 25.1 L Mean Corpuscular Hemoglobin Concent 30.5 L Red Cell Distribution Width 16.1 H Platelet Count 121 L Mean Platelet Volume 12.3 H Immature Granulocytes % 0.300 Neutrophils % 61.3 Lymphocytes % 19.1 Monocytes % 18.5 H Eosinophils % 0.5 Basophils % 0.3 Nucleated Red Blood Cells % 0.0 Immature Granulocytes # 0.010 Neutrophils # 2.3 Lymphocytes # 0.7 L Monocytes # 0.7 Eosinophils # 0.0 Basophils # 0.0 Nucleated Red Blood Cells # 0.0 Sodium Level 139 Potassium Level 4.3 Chloride Level 102 # Carbon Dioxide Level 33 H Anion Gap 4 L Blood Urea Nitrogen 8 Creatinine 0.50 Est Glomerular Filtrat Rate mL/min > 60 Glucose Level 100 Calcium Level 7.4 L Total Bilirubin 0.0 L Direct Bilirubin 0.00 Indirect Bilirubin 0.0 Aspartate Amino Transf (AST/SGOT) 16 Alanine Aminotransferase (ALT/SGPT) 19 Alkaline Phosphatase 80 Total Protein 5.4 L Albumin 2.8 L Globulin 2.60 Albumin/Globulin Ratio 1.07 Medications Medication Current Medications Ondansetron HCl (Zofran Inj) 4 mg Q4H PRN IV NAUSEA/VOMITING Last administered on 11/19/18at 14:37; Admin Dose 4 MG; Start 11/17/18 at 11:30 Celecoxib (Celebrex) 100 mg BID PO Last administered on 11/19/18at 09:09; Admin Dose 100 MG; Start 11/17/18 at 12:00 Gabapentin (Neurontin) 300 mg QHS PO Last administered on 11/18/18at 20:45; Admin Dose 300 MG; Start 11/16/18 at 21:00 Docusate Sodium (Colace) 200 mg BID PO Last administered on 11/18/18at 08:40; Admin Dose 200 MG; Start 11/17/18 at 09:00; Stop 11/19/18 at 21:01 Magnesium Hydroxide (Milk Of Mag) 30 ml HS PRN PO .CONSTIPATION; Start 11/16/18 at 11:30 Naloxone HCl (Narcan) 0.2 mg Q2M PRN IV .RESP RATE; Start 11/16/18 at 11:30 IV Flush (NS 3 ml) 3 ml per protocol IV ; Start 11/16/18 at 11:30 Aspirin (Halfprin) 81 mg BID PO Last administered on 11/19/18 09:10; Admin Dose 81 MG; Start 11/17/18 at 09:00 Calcitriol (Rocaltrol) 0.25 mcg DAILY PO Last administered on 11/19/18 09:10; Admin Dose 0.25 MCG; Start 11/17/18 at 09:00 Levetiracetam (Keppra) 500 mg BID PO Last administered on 11/19/18 09:11; Admin Dose 500 MG; Start 11/16/18 at 21:00 Levothyroxine Sodium (Synthroid) 175 mcg BEFORE BREAKFAST PO Last administered on 11/19/18 06:04; Admin Dose 175 MCG; Start 11/17/18 at 07:00 Ropinirole HCl (Requip) 1 mg HS PO Last administered on 11/18/18 20:44; Admin Dose 1 MG; Start 11/16/18 at 21:00 Calcium/Vitamin D (Oyster Shell/ Vit-D (250/125)) 1 tab BID PO Last administered on 11/19/18 09:10; Admin Dose 1 TAB; Start 11/17/18 at 09:00 Zolpidem Tartrate (Ambien) 5 mg HS MAY REPEAT X 1 PRN PO INSOMNIA; Start 11/16/18 at 18:00 Gabapentin (Neurontin) 1,200 mg TID PO Last administered on 11/19/18 12:41; Admin Dose 1,200 MG; Start 11/16/18 at 21:00 Duloxetine HCl (Cymbalta) 30 mg DAILY PO Last administered on 11/19/18 09:12; Admin Dose 30 MG; Start 11/17/18 at 09:00 Hydromorphone HCl (Dilaudid SEAM FELLER) 0.5 MG/HR CONTINUOUS R... Q4PCA IV Last administered on 11/19/18 14:21; Admin Dose 6 MG; Start 11/16/18 at 21:30 Diphenhydramine HCl (Benadryl) 25 mg Q6H PRN IV itching Last administered on 11/18/18 17:13; Admin Dose 25 MG; Start 11/17/18 at 03:00 Morphine Sulfate (Ms Contin (Er)) 15 mg BID PO Last administered on 11/19/18 09:11; Admin Dose 15 MG; Start 11/17/18 at 09:00 Trazodone HCl (Desyrel) 25 mg HS PRN PO INSOMNIA Last administered on 11/18/18at 23:40; Admin Dose 25 MG; Start 11/17/18 at 07:30 Levofloxacin (Levaquin) 500 mg PC DINNER PO Last administered on 11/18/18at 17:49; Admin Dose 500 MG; Start 11/18/18 at 06:00 Guaifenesin/ Dextromethorphan (Mucinex Dm) 1 tab DAILY PRN PO COUGH; Start 11/19/18 at 13:00 Pantoprazole (Protonix Tab) 40 mg BID@0600,1800 PO ; Start 11/19/18 at 18:00 GURMEET ERIC MD November 19, 2018 16:33
[2018-11-19 17:48] VITALS: BP 101/50; PULSE 111; RESP 18
[2018-11-19] MEDS ORDERED: PROMETHAZINE 25 MG TAB PO PRN (18:00)
[2018-11-19] MEDS: LEVOFLOXACIN 500 MG TAB PO SCH (18:39)
[2018-11-19 19:36] VITALS: BP 96/48; PULSE 105; RESP 18
[2018-11-19] MEDS: DIPHENHYDRAMINE 50 MG INJ IV PRN (21:25)
[2018-11-19] MEDS: ROPINIROLE 1 MG TAB PO SCH (22:38)
[2018-11-19] MEDS: GABAPENTIN 300 MG CAP PO SCH (22:39)
[2018-11-19] MEDS: traZODone 50 MG TAB PO PRN (22:45)
[2018-11-20] MEDS: HYDROmorphONE 0.2 MG/ML PCA IV SCH ×3 (00:39→13:03)
[2018-11-20 01:43] VITALS: BP 97/52; PULSE 91; RESP 16
[2018-11-20] MEDS: GUAIFENESIN/DM (SR) TAB PO PRN ×2 (02:26→10:26)
[2018-11-20 04:27] VITALS: BP 98/50; PULSE 94; RESP 16
[2018-11-20] MEDS: PANTOPRAZOLE (EC) 40 MG TAB PO SCH ×2 (06:04→18:24)
[2018-11-20] MEDS: LEVOTHYROXINE 175 MCG TAB PO SCH (06:04)
[2018-11-20 07:54] VITALS: BP 97/55; PULSE 90; RESP 19
[2018-11-20] MEDS: DIPHENHYDRAMINE 50 MG INJ IV PRN ×2 (08:17→15:50)
[2018-11-20] MEDS: CALCIUM/VITAMIN D (250/125) TAB PO SCH ×2 (08:19→21:23)
[2018-11-20] MEDS: ASPIRIN (EC) 81 MG TAB PO SCH ×2 (08:19→21:23)
[2018-11-20] MEDS: LEVETIRACETAM 500 MG TAB PO SCH ×2 (08:19→21:23)
[2018-11-20] MEDS: CELECOXIB 100 MG CAP PO SCH ×2 (08:19→21:22)
[2018-11-20] MEDS: CALCITRIOL 0.25 MCG CAP PO SCH ×2 (08:19→21:23)
[2018-11-20] MEDS: DULOXETINE 30 MG CAP DR PO SCH (08:19)
[2018-11-20] MEDS: GABAPENTIN 400 MG CAP PO SCH ×3 (08:20→21:23)
[2018-11-20] MEDS: morphine (ER) 15 MG TAB PO SCH ×2 (08:22→22:48)
[2018-11-20] MEDS: ONDANSETRON 4 MG INJ IV PRN (09:36)
[2018-11-20 13:44] VITALS: BP 105/56; PULSE 109; RESP 18
[2018-11-20] MEDS ORDERED: ACET/BUTAL/CAFF TAB PO ONE (16:00)
--- NOTE | 2018-11-20 18:27 | CONS ---
Assessment/Plan Assessment/Plan Problems: (1) Status post left hip replacement Onset Date: ~ 11/16/2018 Status: Acute Comment: Postoperative and going through rehabilitation. Transition off the ELECTRICAL APPRENTICE over to oral medications. Please note pain management physician is presently asking us to assist (2) Postprocedural hypothyroidism Status: Chronic Comment: Maintain replacement therapy (3) Postprocedural hypoparathyroidism Status: Chronic Comment: Increase calcitriol for calcium levels (4) Chronic pain syndrome Status: Chronic Comment: Begin transition over to an outpatient regimen (5) Enterococcus UTI Status: Acute Comment: Patient is allergic to penicillins, and the quinolones are not sensitive. We will go ahead and use vancomycin temporarily to eradicate Consultation Date/Type/Reason Admit Date/Time November 16, 2018 at 11:30 Initial Consult Date 11/16/18 Type of Consult Internal medicine Reason for Consultation Postoperative assistance with multiple medical problems, enterococcus UTI Requesting Provider: LEENA NICHOLS Date/Time of Note DATE: 11/20/18 TIME: 18:24 24 HR Interval Summary Free Text/Dictation Patient reports she would like to come off of the ELECTRICAL APPRENTICE. Based on her prior experiences this is been done gradually. Constitutional: no complaints Detailed Summary Respiratory: no complaints Cardiovascular: no complaints Gastrointestinal: no complaints Exam/Review of Systems Exam Vitals Vital Signs Date Temp Pulse Resp B/P (MAP) Pulse Ox O2 O2 Flow FiO2 Time Delivery Rate 11/20/18 20 17:54 11/20/18 98.0 109 105/56 93 13:44 (72) 11/20/18 Nasal 2.0 04:27 Cannula Intake and Output 11/19/18 11/19/18 11/20/18 1515:00 23:00 07:00 IntakeIntake Total 100 ml 1050 ml 560 ml OutputOutput Total 2 ml 1200 ml 1450 ml BalanceBalance 98 ml -150 ml -890 ml Constitutional: alert, oriented Respiratory: clear to auscultation, normal air movement Cardiovascular: regular rate and rhythm, nl pulses Gastrointestinal: soft, nl liver, spleen, non-tender Results Result Diagram: 11/20/18 0427 11/20/18 0427 Results 24hrs Laboratory Tests Test 11/20/18 04:27 White Blood Count 4.0 L Red Blood Count 3.03 L Hemoglobin 7.6 L Hematocrit 25.6 L Mean Corpuscular Volume 84.5 Mean Corpuscular Hemoglobin 25.1 L Mean Corpuscular Hemoglobin Concent 29.7 L Red Cell Distribution Width 16.2 H Platelet Count 134 L Mean Platelet Volume 11.3 H Immature Granulocytes % 0.500 H Neutrophils % 63.1 Lymphocytes % 19.5 Monocytes % 15.7 H Eosinophils % 1.0 Basophils % 0.2 Nucleated Red Blood Cells % 0.0 Immature Granulocytes # 0.020 Neutrophils # 2.5 Lymphocytes # 0.8 Monocytes # 0.6 Eosinophils # 0.0 Basophils # 0.0 Nucleated Red Blood Cells # 0.0 Sodium Level 139 Potassium Level 4.4 Chloride Level 100 Carbon Dioxide Level 36 H Anion Gap 3 L Blood Urea Nitrogen 9 Creatinine 0.50 Est Glomerular Filtrat Rate mL/min > 60 Glucose Level 108 Calcium Level 7.8 L Medications Medication Current Medications Ondansetron HCl (Zofran Inj) 4 mg Q4H PRN IV NAUSEA/VOMITING Last administered on 11/20/18 09:36; Admin Dose 4 MG; Start 11/17/18 at 11:30 Celecoxib (Celebrex) 100 mg BID PO Last administered on 11/20/18 08:19; Admin Dose 100 MG; Start 11/17/18 at 12:00 Gabapentin (Neurontin) 300 mg QHS PO Last administered on 11/19/18 22:39; Admin Dose 300 MG; Start 11/16/18 at 21:00 Magnesium Hydroxide (Milk Of Mag) 30 ml HS PRN PO .CONSTIPATION; Start 11/16/18 at 11:30 Naloxone HCl (Narcan) 0.2 mg Q2M PRN IV .RESP RATE; Start 11/16/18 at 11:30 IV Flush (NS 3 ml) 3 ml per protocol IV ; Start 11/16/18 at 11:30 Aspirin (Halfprin) 81 mg BID PO Last administered on 11/20/18 08:19; Admin Dose 81 MG; Start 11/17/18 at 09:00 Calcitriol (Rocaltrol) 0.25 mcg DAILY PO Last administered on 11/20/18 08:19; Admin Dose 0.25 MCG; Start 11/17/18 at 09:00 Levetiracetam (Keppra) 500 mg BID PO Last administered on 11/20/18 08:19; Admin Dose 500 MG; Start 11/16/18 at 21:00 Levothyroxine Sodium (Synthroid) 175 mcg BEFORE BREAKFAST PO Last administered on 11/20/18 06:04; Admin Dose 175 MCG; Start 11/17/18 at 07:00 Ropinirole HCl (Requip) 1 mg HS PO Last administered on 11/19/18 22:38; Admin Dose 1 MG; Start 11/16/18 at 21:00 Calcium/Vitamin D (Oyster Shell/ Vit-D (250/125)) 1 tab BID PO Last administered on 11/20/18 08:19; Admin Dose 1 TAB; Start 11/17/18 at 09:00 Zolpidem Tartrate (Ambien) 5 mg HS MAY REPEAT X 1 PRN PO INSOMNIA; Start 11/16/18 at 18:00 Gabapentin (Neurontin) 1,200 mg TID PO Last administered on 11/20/18 13:02; Admin Dose 1,200 MG; Start 11/16/18 at 21:00 Duloxetine HCl (Cymbalta) 30 mg DAILY PO Last administered on 11/20/18 08:19; Admin Dose 30 MG; Start 11/17/18 at 09:00 Hydromorphone HCl (Dilaudid ELECTRICAL APPRENTICE) 0.5 MG/HR CONTINUOUS R... Q4PCA IV Last administered on 11/20/18 13:03; Admin Dose 6 MG; Start 11/16/18 at 21:30 Diphenhydramine HCl (Benadryl) 25 mg Q6H PRN IV itching Last administered on 11/20/18 15:50; Admin Dose 25 MG; Start 11/17/18 at 03:00 Morphine Sulfate (Ms Contin (Er)) 15 mg BID PO Last administered on 11/20/18 08:22; Admin Dose 15 MG; Start 11/17/18 at 09:00 Trazodone HCl (Desyrel) 25 mg HS PRN PO INSOMNIA Last administered on 11/19/18 22:45; Admin Dose 25 MG; Start 11/17/18 at 07:30 Levofloxacin (Levaquin) 500 mg PC DINNER PO Last administered on 11/19/18 18:39; Admin Dose 500 MG; Start 11/18/18 at 06:00; Stop 11/20/18 at 23:45 Pantoprazole (Protonix Tab) 40 mg BID@0600,1800 PO Last administered on 11/20/18 06:04; Admin Dose 40 MG; Start 11/19/18 at 18:00 Guaifenesin/ Dextromethorphan (Mucinex Dm) 1 tab BID PRN PO COUGH Last administ ered on 11/20/18at 10:26; Admin Dose 1 TAB; Start 11/20/18 at 01:30 JONATHAN WALTON MD November 20, 2018 18:27
[2018-11-20] MEDS ORDERED: VANCOMYCIN IV PER PHARMACY XX SCH (18:30)
[2018-11-20] MEDS ORDERED: LORAZEPAM 1 MG TAB PO ONE (19:00)
--- NOTE | 2018-11-20 19:54 | PN ---
Date/Time of Note Date/Time of Note DATE: 11/20/18 TIME: 19:53 Assessment/Plan Lines/Catheters IV Catheter Type (from Nrsg): Peripheral IV Telles in Place (from Nrsg): Yes Assessment/Plan Assessment/Plan The patient is progressing slowly after GERA last week. She may be discharged in the morning with [facility]. Follow up in 2 weeks. Subjective 24 Hr Interval Summary progressing slowly after GERA, pain controlled Exam/Review of Systems Vital Signs Vitals Vital Signs Date Temp Pulse Resp B/P (MAP) Pulse Ox O2 O2 Flow FiO2 Time Delivery Rate 11/20/18 20 17:54 11/20/18 98.0 109 105/56 93 13:44 (72) 11/20/18 Nasal 2.0 04:27 Cannula Intake and Output 11/19/18 11/19/18 11/20/18 1515:00 23:00 07:00 IntakeIntake Total 100 ml 1050 ml 560 ml OutputOutput Total 2 ml 1200 ml 1450 ml BalanceBalance 98 ml -150 ml -890 ml Exam Free Text/Dictation hip dressing intact, drain removed no NV deficit no LLD, no sign of infection or DVT. Results Result Diagram: 11/20/18 0427 11/20/18 0427 LEENA NICHOLS November 20, 2018 19:54
[2018-11-20 20:00] VITALS: BP 105/54; PULSE 82; RESP 18
[2018-11-20] MEDS ORDERED: VANCOMYCIN HCL 1.25 GM in SOD CHLORIDE 0.9% 250 ML IVPB ONE (20:00)
[2018-11-20] MEDS: GABAPENTIN 300 MG CAP PO SCH (21:23)
[2018-11-20] MEDS: ROPINIROLE 1 MG TAB PO SCH (21:23)
[2018-11-21] MEDS: HYDROmorphONE 0.2 MG/ML PCA IV SCH ×2 (00:41→09:16)
[2018-11-21 03:45] VITALS: BP 119/58; PULSE 72; RESP 18
[2018-11-21] MEDS: PANTOPRAZOLE (EC) 40 MG TAB PO SCH ×2 (05:37→17:10)
[2018-11-21] MEDS: LEVOTHYROXINE 175 MCG TAB PO SCH (05:37)
[2018-11-21] MEDS: morphine (ER) 15 MG TAB PO SCH ×3 (05:37→20:31)
[2018-11-21] MEDS ORDERED: VANCOMYCIN 500 MG (PMX) 100 ML IVPB SCH (08:00)
[2018-11-21 08:19] VITALS: BP 87/51; PULSE 71; RESP 18
[2018-11-21] MEDS: GABAPENTIN 400 MG CAP PO SCH ×3 (09:28→20:29)
[2018-11-21] MEDS: LEVETIRACETAM 500 MG TAB PO SCH ×2 (09:28→20:28)
[2018-11-21] MEDS: DULOXETINE 30 MG CAP DR PO SCH (09:28)
[2018-11-21] MEDS: CALCITRIOL 0.25 MCG CAP PO SCH ×2 (09:28→20:29)
[2018-11-21] MEDS: ASPIRIN (EC) 81 MG TAB PO SCH ×2 (09:28→20:28)
[2018-11-21] MEDS: CELECOXIB 100 MG CAP PO SCH ×2 (09:29→20:28)
[2018-11-21] MEDS: CALCIUM/VITAMIN D (250/125) TAB PO SCH ×2 (09:29→20:29)
[2018-11-21] MEDS: DIPHENHYDRAMINE 50 MG INJ IV PRN (09:37)
[2018-11-21] MEDS: ONDANSETRON 4 MG INJ IV PRN (13:03)
--- NOTE | 2018-11-21 13:30 | PN ---
Date/Time of Note Date/Time of Note DATE: 11/21/18 TIME: 13:27 Assessment/Plan VTE Prophylaxis Risk score (from Ns)>0 risk: 8 SCD applied (from Ns): Yes Pharmacological prophylaxis: heparin Lines/Catheters IV Catheter Type (from Nrs): Peripheral IV Urinary Cath still in place: No (Discontinued already) Assessment/Plan Problems: (1) Status post left hip replacement Onset Date: ~ 11/16/2018 Status: Acute Comment: Please see notes from orthopedic surgery. There is some discharge planning issues as the patient's spouse was supposed to be able to help her now apparently does not have the ability to help her. I will try and get case management more involved (2) COPD mixed type Status: Chronic Comment: Resume standard dose therapy treatment (3) Enterococcus UTI Status: Acute Comment: On IV vancomycin due to sensitivities and patient allergies (4) Postprocedural hypothyroidism Status: Chronic Comment: Stable on replacement therapy (5) Postprocedural hypoparathyroidism Status: Chronic Comment: Dosage of calcitriol adjusted to help compensate (6) Seizure disorder Status: Chronic Comment: Quiescent at this time (7) Chronic pain syndrome Status: Chronic Comment: Adequately controlled, discontinue MGMT CONSULTANT, please see orders and timing of orders Result Diagram: 11/21/18 0443 11/21/18 0443 Results 24hrs Laboratory Tests Test 11/21/18 04:43 White Blood Count 3.2 L Red Blood Count 3.08 L Hemoglobin 7.8 L Hematocrit 25.9 L Mean Corpuscular Volume 84.1 Mean Corpuscular Hemoglobin 25.3 L Mean Corpuscular Hemoglobin Concent 30.1 L Red Cell Distribution Width 16.4 H Platelet Count 142 Mean Platelet Volume 11.0 H Immature Granulocytes % 0.300 Neutrophils % 56.1 Lymphocytes % 24.8 Monocytes % 15.7 H Eosinophils % 2.5 Basophils % 0.6 Nucleated Red Blood Cells % 0.0 Immature Granulocytes # 0.010 Neutrophils # 1.8 Lymphocytes # 0.8 Monocytes # 0.5 Eosinophils # 0.1 Basophils # 0.0 Nucleated Red Blood Cells # 0.0 Sodium Level 140 Potassium Level 4.3 Chloride Level 99 Carbon Dioxide Level 38 H Anion Gap 3 L Blood Urea Nitrogen 10 Creatinine 0.52 Est Glomerular Filtrat Rate mL/min > 60 Glucose Level 97 Calcium Level 7.7 L Subjective 24 Hr Interval Summary Free Text/Dictation She reports overall her pain control is better. Please note that the MGMT CONSULTANT is still running this afternoon at 1;25 in the afternoon despite the orders in the chart. She is noting some wheezing and reports that she has COPD and uses inhalers at home. Constitutional: no complaints Respiratory: wheezing Cardiovascular: no complaints Gastrointestinal: no complaints Genitourinary: no complaints Musculoskeletal: other (Hip pain) Exam/Review of Systems Exam Vitals Vital Signs Date Temp Pulse Resp B/P (MAP) Pulse Ox O2 O2 Flow FiO2 Time Delivery Rate 11/21/18 98.6 71 18 87/51 (63) 98 Nasal 08:19 Cannula 11/21/18 3.0 06:29 Intake and Output 11/20/18 11/20/18 11/21/18 1515:00 23:00 07:00 IntakeIntake Total 200 ml 700 ml 550 ml OutputOutput Total 350 ml 950 ml 350 ml BalanceBalance -150 ml -250 ml 200 ml Constitutional: alert, oriented Neck: supple, non-tender Respiratory: normal air movement, wheezing Cardiovascular: regular rate and rhythm, nl pulses Gastrointestinal: soft, nl liver, spleen, non-tender Results Results 24hrs Laboratory Tests Test 11/21/18 04:43 White Blood Count 3.2 L Red Blood Count 3.08 L Hemoglobin 7.8 L Hematocrit 25.9 L Mean Corpuscular Volume 84.1 Mean Corpuscular Hemoglobin 25.3 L Mean Corpuscular Hemoglobin Concent 30.1 L Red Cell Distribution Width 16.4 H Platelet Count 142 Mean Platelet Volume 11.0 H Immature Granulocytes % 0.300 Neutrophils % 56.1 Lymphocytes % 24.8 Monocytes % 15.7 H Eosinophils % 2.5 Basophils % 0.6 Nucleated Red Blood Cells % 0.0 Immature Granulocytes # 0.010 Neutrophils # 1.8 Lymphocytes # 0.8 Monocytes # 0.5 Eosinophils # 0.1 Basophils # 0.0 Nucleated Red Blood Cells # 0.0 Sodium Level 140 Potassium Level 4.3 Chloride Level 99 Carbon Dioxide Level 38 H Anion Gap 3 L Blood Urea Nitrogen 10 Creatinine 0.52 Est Glomerular Filtrat Rate mL/min > 60 Glucose Level 97 Calcium Level 7.7 L Medications Medication Current Medications Ondansetron HCl (Zofran Inj) 4 mg Q4H PRN IV NAUSEA/VOMITING Last administered on 11/21/18at 13:03; Admin Dose 4 MG; Start 11/17/18 at 11:30 Celecoxib (Celebrex) 100 mg BID PO Last administered on 11/21/18 09:29; Admin Dose 100 MG; Start 11/17/18 at 12:00 Gabapentin (Neurontin) 300 mg QHS PO Last administered on 11/20/18 21:23; Admin Dose 300 MG; Start 11/16/18 at 21:00 Magnesium Hydroxide (Milk Of Mag) 30 ml HS PRN PO .CONSTIPATION; Start 11/16/18 at 11:30 Naloxone HCl (Narcan) 0.2 mg Q2M PRN IV .RESP RATE; Start 11/16/18 at 11:30 IV Flush (NS 3 ml) 3 ml per protocol IV ; Start 11/16/18 at 11:30 Aspirin (Halfprin) 81 mg BID PO Last administered on 11/21/18 09:28; Admin Dose 81 MG; Start 11/17/18 at 09:00 Levetiracetam (Keppra) 500 mg BID PO Last administered on 11/21/18 09:28; Admin Dose 500 MG; Start 11/16/18 at 21:00 Levothyroxine Sodium (Synthroid) 175 mcg BEFORE BREAKFAST PO Last administered on 11/21/18 05:37; Admin Dose 175 MCG; Start 11/17/18 at 07:00 Ropinirole HCl (Requip) 1 mg HS PO Last administered on 11/20/18 21:23; Admin Dose 1 MG; Start 11/16/18 at 21:00 Calcium/Vitamin D (Oyster Shell/ Vit-D (250/125)) 1 tab BID PO Last administered on 11/21/18 09:29; Admin Dose 1 TAB; Start 11/17/18 at 09:00 Zolpidem Tartrate (Ambien) 5 mg HS MAY REPEAT X 1 PRN PO INSOMNIA; Start at 18:00 Gabapentin (Neurontin) 1,200 mg TID PO Last administered on 11/21/18 13:02; Admin Dose 1,200 MG; Start 11/16/18 at 21:00 Duloxetine HCl (Cymbalta) 30 mg DAILY PO Last administered on 11/21/18 09:28; Admin Dose 30 MG; Start 11/17/18 at 09:00 Diphenhydramine HCl (Benadryl) 25 mg Q6H PRN IV itching Last administered on 11/21/18 09:37; Admin Dose 25 MG; Start 11/17/18 at 03:00 Trazodone HCl (Desyrel) 25 mg HS PRN PO INSOMNIA Last administered on 11/19/18 22:45; Admin Dose 25 MG; Start 11/17/18 at 07:30 Pantoprazole (Protonix Tab) 40 mg BID@0600,1800 PO Last administered on 05:37; Admin Dose 40 MG; Start 11/19/18 at 18:00 Guaifenesin/ Dextromethorphan (Mucinex Dm) 1 tab BID PRN PO COUGH Last administered on 11/20/18 10:26; Admin Dose 1 TAB; Start 11/20/18 at 01:30 Calcitriol (Rocaltrol) 0.25 mcg BID PO Last administered on 11/21/18 09:28; Admin Dose 0.25 MCG; Start 11/20/18 at 21:00 Morphine Sulfate (Ms Contin (Er)) 30 mg Q8 PO Last administered on 11/21/18 13:02; Admin Dose 30 MG; Start 11/20/18 at 22:00 Hydromorphone HCl (Dilaudid) 4 mg Q6H PRN PO SEVERE PAIN LEVEL 7-10; Start 11/21/18 at 08:00 Vancomycin HCl (Vanco Iv Per Pharmacy) VANCOMYCIN PER PHARM... PER PROTOCOL XX ; Start 11/20/18 at 18:30; Stop 11/25/18 at 18:29 Vancomycin HCl 100 ml @ 100 mls/hr Q12H IVPB Last administered on 11/21/18 07:54; Admin Dose 100 MLS/HR; Start 11/21/18 at 08:00 Fluticasone/ Vilanterol (Breo Ellipta 100-25 Mcg Inh) 1 inh DAILY INH ; Start 11/21/18 at 13:30; Status UNV Tiotropium [place] (Spiriva) 1 inh DAILY INH ; Start 11/21/18 at 13:30; Status UNV Montelukast Sodium (Singulair) 10 mg HS PO ; Start 11/21/18 at 21:00; Status UNV JONATHAN WALTON MD November 21, 2018 13:30
[2018-11-21] MEDS: HYDROmorphONE 4 MG TAB PO PRN ×2 (13:38→18:38)
[2018-11-21 15:13] VITALS: BP 103/54; PULSE 82; RESP 18
[2018-11-21] MEDS ORDERED: HYDROmorphONE 1 MG/ML SYG IV ONE (16:00)
[2018-11-21] MEDS: TIOTROPIUM 18 MCG CAPSULE INHA DEV INH SCH (16:11)
[2018-11-21] MEDS: FLUTICASONE/VILANTEROL 100-25 INH SCH (16:11)
[2018-11-21] MEDS ORDERED: LORAZEPAM 2 MG INJ IV ONE (16:30)
[2018-11-21 19:32] VITALS: BP 109/55; PULSE 79; RESP 18
[2018-11-21] MEDS ORDERED: VANCOMYCIN 1 GM 250 ML IVPB SCH (20:00)
[2018-11-21] MEDS: GABAPENTIN 300 MG CAP PO SCH (20:29)
[2018-11-21] MEDS: ROPINIROLE 1 MG TAB PO SCH (20:29)
[2018-11-21] MEDS ORDERED: MONTELUKAST 10 MG TAB PO SCH (21:00)
[2018-11-22] MEDS: HYDROmorphONE 4 MG TAB PO PRN ×4 (00:18→14:04)
[2018-11-22] MEDS: DIPHENHYDRAMINE 50 MG INJ IV PRN (00:23)
[2018-11-22 00:25] VITALS: BP 115/62; PULSE 68; RESP 18
[2018-11-22] MEDS: PANTOPRAZOLE (EC) 40 MG TAB PO SCH (04:35)
[2018-11-22] MEDS: LEVOTHYROXINE 175 MCG TAB PO SCH (06:26)
[2018-11-22] MEDS: morphine (ER) 15 MG TAB PO SCH ×2 (06:26→13:36)
[2018-11-22 07:20] VITALS: BP 112/60; PULSE 78; RESP 19
--- NOTE | 2018-11-22 07:25 | PN ---
Date/Time of Note Date/Time of Note DATE: 11/22/18 TIME: 07:21 Assessment/Plan VTE Prophylaxis Risk score (from [facility])>0 risk: 2 SCD applied (from [facility]): Yes SCD contraindicated: low risk/ambulating Pharmacological prophylaxis: heparin Pharm contraindication: low risk/ambulating Lines/Catheters IV C[facility]ter Type (from [facility]): Saline Lock Urinary Cath still in place: No (Discontinued already) Assessment/Plan Problems: (1) Status post left hip replacement Onset Date: ~ 11/16/2018 Status: Acute Comment: Progressing nicely. Possible discharge today as per orthopedic surge ry (2) COPD mixed type Status: Chronic Comment: Markedly improved control using basic regimen (3) Enterococcus UTI Status: Acute Comment: Progressing nicely. Please note she can be discharged without IV vancomycin she can go out on nitrofurantoin twice a day for 3 more days (4) Chronic pain syndrome Status: Chronic Comment: Adequately controlled now (5) Postprocedural hypoparathyroidism Status: Chronic Comment: Her calcium levels have improved with the adjustment in the dosage on the calcitriol which should be her new home dosing (6) Postprocedural hypothyroidism Status: Chronic Comment: Table on replacement therapy (7) Rheumatoid arthritis Status: Chronic Comment: Stable at this time Qualifiers: Rheumatoid arthritis location: unspecified site Rheumatoid factor presence: with rheumatoid factor Qualified Codes: M05.9 - Rheumatoid arthritis with rheumatoid factor, unspecified (8) Anemia Status: Chronic Comment: Receiving iron. Qualifiers: Anemia type: iron deficiency Iron deficiency anemia type: chronic blood loss Qualified Codes: D50.0 - Iron deficiency anemia secondary to blood loss (chronic) (9) Seizure disorder Status: Chronic Result Diagram: 11/22/18 0423 11/22/18 0423 Results 24hrs Laboratory Tests Test 11/22/18 04:23 White Blood Count 3.8 L Red Blood Count 3.19 L Hemoglobin 8.1 L Hematocrit 27.3 L Mean Corpuscular Volume 85.6 Mean Corpuscular Hemoglobin 25.4 L Mean Corpuscular Hemoglobin Concent 29.7 L Red Cell Distribution Width 16.2 H Platelet Count 169 Mean Platelet Volume 10.7 H Immature Granulocytes % 0.300 Neutrophils % 63.4 Lymphocytes % 18.7 Monocytes % 13.9 H Eosinophils % 2.9 Basophils % 0.8 Nucleated Red Blood Cells % 0.0 Immature Granulocytes # 0.010 Neutrophils # 2.4 Lymphocytes # 0.7 L Monocytes # 0.5 Eosinophils # 0.1 Basophils # 0.0 Nucleated Red Blood Cells # 0.0 Sodium Level 141 Potassium Level 4.2 Chloride Level 99 Carbon Dioxide Level 39 H Anion Gap 3 L Blood Urea Nitrogen 13 Creatinine 0.53 Est Glomerular Filtrat Rate mL/min > 60 Glucose Level 102 Calcium Level 8.0 L Subjective 24 Hr Interval Summary Free Text/Dictation She reports that she got a good night sleep. Her anxiety is less and her pain control is in her opinion adequate. She has been up and working with physical therapy and prior days will be doing so today and is considering discharge home today Constitutional: no complaints Respiratory: no complaints Cardiovascular: no complaints Gastrointestinal: no complaints Genitourinary: no complaints Exam/Review of Systems Exam Vitals Vital Signs Date Temp Pulse Resp B/P (MAP) Pulse Ox O2 O2 Flow FiO2 Time Delivery Rate 11/22/18 98.2 78 19 112/60 99 07:20 (77) 11/22/18 Room Air 00:25 11/21/18 3.0 06:29 Intake and Output 11/21/18 11/21/18 11/22/18 1414:59 22:59 06:59 IntakeIntake Total 100 ml 1000 ml 250 ml OutputOutput Total 200 ml BalanceBalance 100 ml 1000 ml 50 ml Constitutional: alert, oriented Respiratory: clear to auscultation, normal air movement Cardiovascular: regular rate and rhythm, nl pulses Gastrointestinal: soft, nl liver, spleen, non-tender Results Results 24hrs Laboratory Tests Test 11/22/18 04:23 White Blood Count 3.8 L Red Blood Count 3.19 L Hemoglobin 8.1 L Hematocrit 27.3 L Mean Corpuscular Volume 85.6 Mean Corpuscular Hemoglobin 25.4 L Mean Corpuscular Hemoglobin Concent 29.7 L Red Cell Distribution Width 16.2 H Platelet Count 169 Mean Platelet Volume 10.7 H Immature Granulocytes % 0.300 Neutrophils % 63.4 Lymphocytes % 18.7 Monocytes % 13.9 H Eosinophils % 2.9 Basophils % 0.8 Nucleated Red Blood Cells % 0.0 Immature Granulocytes # 0.010 Neutrophils # 2.4 Lymphocytes # 0.7 L Monocytes # 0.5 Eosinophils # 0.1 Basophils # 0.0 Nucleated Red Blood Cells # 0.0 Sodium Level 141 Potassium Level 4.2 Chloride Level 99 Carbon Dioxide Level 39 H Anion Gap 3 L Blood Urea Nitrogen 13 Creatinine 0.53 Est Glomerular Filtrat Rate mL/min > 60 Glucose Level 102 Calcium Level 8.0 L Medications Medication Current Medications Ondansetron HCl (Zofran Inj) 4 mg Q4H PRN IV NAUSEA/VOMITING Last administered on 11/21/18 13:03; Admin Dose 4 MG; Start 11/17/18 at 11:30 Celecoxib (Celebrex) 100 mg BID PO Last administered on 11/21/18 20:28; Admin Dose 100 MG; Start 11/17/18 at 12:00 Gabapentin (Neurontin) 300 mg QHS PO Last administered on 11/21/18 20:29; Admin Dose 300 MG; Start 11/16/18 at 21:00 Magnesium Hydroxide (Milk Of Mag) 30 ml HS PRN PO .CONSTIPATION; Start 11/16/18 at 11:30 Naloxone HCl (Narcan) 0.2 mg Q2M PRN IV .RESP RATE; Start 11/16/18 at 11:30 IV Flush (NS 3 ml) 3 ml per protocol IV ; Start 11/16/18 at 11:30 Aspirin (Halfprin) 81 mg BID PO Last administered on 11/21/18 20:28; Admin Dose 81 MG; Start 11/17/18 at 09:00 Levetiracetam (Keppra) 500 mg BID PO Last administered on 11/21/18 20:28; Admin Dose 500 MG; Start 11/16/18 at 21:00 Levothyroxine Sodium (Synthroid) 175 mcg BEFORE BREAKFAST PO Last administered on 11/22/18 06:26; Admin Dose 175 MCG; Start 11/17/18 at 07:00 Ropinirole HCl (Requip) 1 mg HS PO Last administered on 11/21/18 20:29; Admin Dose 1 MG; Start 11/16/18 at 21:00 Calcium/Vitamin D (Oyster Shell/ Vit-D (250/125)) 1 tab BID PO Last adminis tered on 11/21/18 20:29; Admin Dose 1 TAB; Start 11/17/18 at 09:00 Zolpidem Tartrate (Ambien) 5 mg HS MAY REPEAT X 1 PRN PO INSOMNIA; Start 11/16/18 at 18:00 Gabapentin (Neurontin) 1,200 mg TID PO Last administered on 11/21/18 20:29; Admin Dose 1,200 MG; Start 11/16/18 at 21:00 Duloxetine HCl (Cymbalta) 30 mg DAILY PO Last administered on 11/21/18 09:28; Admin Dose 30 MG; Start 11/17/18 at 09:00 Diphenhydramine HCl (Benadryl) 25 mg Q6H PRN IV itching Last administered on 11/22/18 00:23; Admin Dose 25 MG; Start 11/17/18 at 03:00 Trazodone HCl (Desyrel) 25 mg HS PRN PO INSOMNIA Last administered on 11/19/18 22:45; Admin Dose 25 MG; Start 11/17/18 at 07:30 Pantoprazole (Protonix Tab) 40 mg BID@0600,1800 PO Last administered on 11/22/18 04:35; Admin Dose 40 MG; Start 11/19/18 at 18:00 Guaifenesin/ Dextromethorphan (Mucinex Dm) 1 tab BID PRN PO COUGH Last administered on 11/20/18 10:26; Admin Dose 1 TAB; Start 11/20/18 at 01:30 Calcitriol (Rocaltrol) 0.25 mcg BID PO Last administered on 11/21/18 20:29; Admin Dose 0.25 MCG; Start 11/20/18 at 21:00 Morphine Sulfate (Ms Contin (Er)) 30 mg Q8 PO Last administered on 11/22/18 06:26; Admin Dose 30 MG; Start 11/20/18 at 22:00 Vancomycin HCl (Vanco Iv Per Pharmacy) VANCOMYCIN PER PHARM... PER PROTOCOL XX ; Start 11/20/18 at 18:30; Stop 11/25/18 at 18:29 Fluticasone/ Vilanterol (Breo Ellipta 100-25 Mcg Inh) 1 inh DAILY INH Last administered on 11/21/18 16:11; Admin Dose 1 INH; Start 11/21/18 at 15:00 Tiotropium [place] (Spiriva) 1 inh DAILY INH Last administered on 11/21/18 16:11; Admin Dose 1 INH; Start 11/21/18 at 15:00 Montelukast Sodium (Singulair) 10 mg HS PO Last administered on 11/21/18at 20:29; Admin Dose 10 MG; Start 11/21/18 at 21:00 Vancomycin HCl 250 ml @ 125 mls/hr Q12H IVPB Last administered on 11/21/18at 20:28; Admin Dose 125 MLS/HR; Start 11/21/18 at 20:00; Stop 11/25/18 at 19:59 Hydromorphone HCl (Dilaudid) 4 mg Q4H PRN PO SEVERE PAIN LEVEL 7-10 Last administered on 11/22/18at 04:35; Admin Dose 4 MG; Start 11/21/18 at 22:30 JONATHAN WALTON MD November 22, 2018 07:25
[2018-11-22] MEDS ORDERED: NITROFURANTOIN (SR) 100 MG CAP PO SCH (09:00)
[2018-11-22] MEDS: FLUTICASONE/VILANTEROL 100-25 INH SCH (09:23)
[2018-11-22] MEDS: LEVETIRACETAM 500 MG TAB PO SCH (09:24)
[2018-11-22] MEDS: TIOTROPIUM 18 MCG CAPSULE INHA DEV INH SCH (09:24)
[2018-11-22] MEDS: CALCITRIOL 0.25 MCG CAP PO SCH (09:24)
[2018-11-22] MEDS: DULOXETINE 30 MG CAP DR PO SCH (09:25)
[2018-11-22] MEDS: CELECOXIB 100 MG CAP PO SCH (09:25)
[2018-11-22] MEDS: ASPIRIN (EC) 81 MG TAB PO SCH (09:25)
[2018-11-22] MEDS: GABAPENTIN 400 MG CAP PO SCH ×2 (09:25→13:35)
[2018-11-22] MEDS: ONDANSETRON 4 MG INJ IV PRN (11:47)
[2018-11-22] MEDS: CALCIUM/VITAMIN D (250/125) TAB PO SCH (12:23)
[2018-11-22] MEDS ORDERED: HYDR4TAB51 PO (17:17)
[2018-11-22] MEDS ORDERED: MORP15TA3 PO (17:17)
[2018-11-22] MEDS ORDERED: NITR100C6 PO (17:17)
[2018-11-22] MEDS ORDERED: ASPI-1044 PO (17:17)
[2018-11-22] MEDS ORDERED: CALC0.2511 PO (17:17)
[2018-11-22] MEDS ORDERED: MONT10TA24 PO (17:17)
[2018-11-22] MEDS ORDERED: CELE100C PO (17:17)
[2018-11-22] MEDS ORDERED: FLUT1AER INH (17:17)
[2018-11-22] MEDS ORDERED: TIOT18CA INH (17:17)
--- NOTE | 2018-11-22 17:22 | DS ---
Date/Time of Note Date/Time of Note DATE: 11/22/18 TIME: 17:18 Discharge Summary Admission/Discharge Info Admit Date/Time November 16, 2018 at 11:30 Discharge Date/Time November 22, 2018 Discharge Diagnosis Left hip osteoarthritis; status post left hip arthroplasty; chronic pain syndrome; hypothyroidism post procedure; hypoparathyroidism post procedure; seizure disorder; rheumatoid arthritis; COPD; enterococcus UTI Patient Condition: Fair Consults Pain management-Dr. Carroll; internal medicine-Dr. Richter Procedures Operation/Procedure Performed Left total hip replacement Hx of Present Illness Hx of Present Illness Charming 63-year-old female admitted electively for left hip replacement. She had recent right hip replacement 3 months ago and is done quite nicely from that and has a history of a left total knee replacement within the last 12 months. She also has a history of chronic pain syndrome, fibromyalgia and other medical issues. She is seen postoperatively up on the medical surgical unit and is doing well Hospital Course female admitted for left total hip replacement. Due to her chronic pain syndrome she was seen in consultation for pain management by Dr. Carroll. She progressed nicely and is now at a point where she is stable for discharge. Please note that Dr. Carroll is unavailable to write for her pain medications, the patient reports that she is out of pain medications at home entirely. As such the pain medications listed in the discharge summary are ones that I have written on triplicates in the quantity that I have specified. She is now stable for discharge home. Home Meds Reported Medications Cyclobenzaprine Hcl* (Cyclobenzaprine Hcl*) 10 Mg Tablet, 20 MG PO Q8 PRN for MUSCLE SPASMS, #60 TAB 11/16/18 Oxycodone Hcl-Acetaminophen* (Endocet*) 10-325 Mg Tablet, 1 TAB PO Q4H PRN for PAIN, TAB 11/16/18 Pantoprazole* (Protonix*) 40 Mg Tablet., 40 MG PO DAILY, TAB 11/16/18 Calcitriol* (Rocaltrol*) 0.25 Mcg Capsule, 0.25 MCG PO DAILY, CAP 11/16/18 Calcium Citrate/Vitamin D (Citracal-Vitamin D 200 MG-250) 1 Each Tablet, 1 EACH PO BID, TAB 11/16/18 Pregabalin* (Lyrica*) 75 Mg Capsule, 75 MG PO DAILY, CAP 08/24/18 Temazepam* (Restoril*) 30 Mg Capsule, 30 MG PO HS PRN for INSOMNIA, CAP 08/24/18 Morphine Sulfate* (Ms Contin*) 15 Mg Tablet.sa, 30 MG PO Q8 PRN for PAIN, TAB.SA 08/24/18 Ropinirole Hcl* (Requip*) 1 Mg Tablet, 1 MG PO HS, TAB 08/24/18 Gabapentin* (Gabapentin*) 600 Mg Tablet, 600 MG PO TID, #90 TAB 08/24/18 Levetiracetam* (Keppra*) 500 Mg Tablet, 500 MG PO BID, TAB 08/24/18 Levothyroxine Sodium* (Synthroid*) 175 Mcg Tablet, 175 MCG PO BEFORE BREAKFAST, #30 TAB 08/24/18 Discontinued Reported Medications Magnesium Oxide* (Magnesium Oxide*) 400 Mg Tablet, 400 MG PO DAILY, TAB 08/24/18 Duloxetine Hcl* (Cymbalta*) 20 Mg Capsule.dr, 40 MG PO DAILY, CAP 08/24/18 Calcitriol* (Calcitriol*) 0.5 Mcg Capsule, 0.5 MCG PO DAILY, CAP 08/24/18 Discontinued Scripts Hydromorphone Hcl* (Hydromorphone Hcl*) 2 Mg Tablet, 2 MG PO Q4H PRN for PAIN for 7 Days, #30 TAB 0 Refills Prov:IRAM FRANCIS MD 08/27/18 Aspirin (Aspir-Flaca) 325 Mg Tablet., 325 MG PO BID for 84 Days Prov:BELEM DUMONT MD 08/26/18 Follow-up Plan Orthopedic surgery in 1 week, pain management physician at [facility] in 1 week; primary care physician in 2 weeks Primary Care Provider Not On Staff Doctor Time spent on discharge: > 30 minutes Pending Labs Laboratory Tests Test 11/22/18 04:23 White Blood Count 3.8 10^3/ul (4.8-10.8) Red Blood Count 3.19 10^6/ul (4.20-5.40) Hemoglobin 8.1 g/dl (12.0-16.0) Hematocrit 27.3 % (37.0-47.0) Mean Corpuscular Volume 85.6 fl (82.0-101.0) Mean Corpuscular Hemoglobin 25.4 pg (29.0-33.0) Mean Corpuscular Hemoglobin Concent 29.7 g/dl (32.0-37.0) Red Cell Distribution Width 16.2 % (11.5-14.5) Platelet Count 169 10^3/UL (140-415) Mean Platelet Volume 10.7 fl (7.4-10.4) Immature Granulocytes % 0.300 % (0.001-0.429) Neutrophils % 63.4 % (39.0-77.0) Lymphocytes % 18.7 % (15.0-51.0) Monocytes % 13.9 % (0.0-11.0) Eosinophils % 2.9 % (0.0-7.0) Basophils % 0.8 % (0.0-2.0) Nucleated Red Blood Cells % 0.0 /100WBC (0.0-0.0) Immature Granulocytes # 0.010 10^3/ul (0.0-0.031) Neutrophils # 2.4 10^3/ul (1.6-7.5) Lymphocytes # 0.7 10^3/ul (0.8-2.9) Monocytes # 0.5 10^3/ul (0.3-0.9) Eosinophils # 0.1 10^3/ul (0.0-0.5) Basophils # 0.0 10^3/ul (0.0-0.1) Nucleated Red Blood Cells # 0.0 10^3/ul (0.0-0.0) Sodium Level 141 mmol/L (135-144) Potassium Level 4.2 mmol/L (3.5-5.1) Chloride Level 99 mmol/L (97-110) Carbon Dioxide Level 39 mmol/L (21-31) Anion Gap 3 (5-13) Blood Urea Nitrogen 13 mg/dl (7-20) Creatinine 0.53 mg/dl (0.44-1.00) Est Glomerular Filtrat Rate mL/min > 60 mL/min (>60) Glucose Level 102 mg/dl (70-220) Calcium Level 8.0 mg/dl (8.4-10.2) Copies To: CC: LEENA NICHOLS; DUTCH IZQUIERDO JOSHUA A MD November 22, 2018 17:22
== END 2018-11-22 18:15 | disposition home health service (06) | DRG 470 ==
LOC: SDS 06:26 → REC 11:30 → MS1 13:58
PROVIDERS: ADMIT Orthopaedic Surgery; ATTEND Orthopaedic Surgery
PROC: 0SRB03A Replacement of Left Hip Joint with Ceramic Synthetic Substitute, Uncemented, Open Approach (ICD-10-PCS; principal; 2018-11-16 08:30)
DX: M16.12 Unilateral primary osteoarthritis, left hip (principal); N39.0 Urinary tract infection, site not specified; E87.1 Hypo-osmolality and hyponatremia; D50.0 Iron deficiency anemia secondary to blood loss (chronic); M06.9 Rheumatoid arthritis, unspecified; E03.9 Hypothyroidism, unspecified; G89.4 Chronic pain syndrome; Z85.3 Personal history of malignant neoplasm of breast; Z91.81 History of falling; K21.9 Gastro-esophageal reflux disease without esophagitis; B95.2 Enterococcus as the cause of diseases classified elsewhere; G40.909 Epilepsy, unspecified, not intractable, without status epilepticus; E20.9 Hypoparathyroidism, unspecified; D50.9 Iron deficiency anemia, unspecified; D63.8 Anemia in other chronic diseases classified elsewhere
CPT/HCPCS: 71045; 73530; 80048; 80053; 82728; 83540; 85025; 86850; 86900; 86901; 87081; 87086; 88304; 88311; 97110; 97116; 97163; 97167; 97530; 97535; C1713; C1776; J0131; J0171; J0735; J1100; J1170; J1200; J1885; J2001; J2060; J2250; J2370; J2405; J2597; J2795; J2916; J3010; J3370; J7050; J7120